=== PATIENT | female | born 1940 | race Caucasian/White ===

== ENCOUNTER 2017-05-04 13:52 | Emergency (ER) | payer MEDICARE, BC ==
[2017-05-04 14:14] VITALS: BP 120/62; PULSE 65; RESP 17; TEMP 97.1
--- NOTE | 2017-05-04 14:24 | ED ---
Wound/Laceration HPI - General Chief Complaint: Wound/Laceration Stated Complaint: foot injury Time Seen by Provider: 05/04/17 14:16 Source: patient, RN notes reviewed Mode of arrival: ambulatory Limitations: no limitations - History of Present Illness Initial Comments: 76-year-old female presents emergency Department chief complaint laceration to her right heel. She states that she was at all these 1 the door from the freezer shot causing a laceration to her right heel. Patient states that she does state blood thinners and states that it was bleeding initially and went to urgent care and advised to come here to be evaluated because she takes blood thinners. Patient states her tetanus is up-to-date. States it really appears to have stopped. She has no pain associated with. Denies any decreased range of motion. - Related Data Home Medications Medication Instructions Recorded Confirmed ALPRAZolam [Xanax] 0.25 mg PO TID PRN 03/18/15 03/18/15 Aspirin 81 mg PO DAILY 03/18/15 03/18/15 Dabigatran [Pradaxa] 150 mg PO BID 03/18/15 03/18/15 Digoxin [Lanoxin] 125 mcg PO DAILY 03/18/15 03/18/15 FLUoxetine HCL [PROzac] 60 mg PO BID 03/18/15 03/18/15 Levothyroxine Sodium [Synthroid] 150 mcg PO DAILY 03/18/15 03/18/15 Multivitamins, Thera [Theragran] 1 each PO DAILY@1200 03/18/15 03/18/15 Pravastatin Sodium [Pravachol] 20 mg PO DAILY 03/18/15 03/18/15 Temazepam [Restoril] 15 mg PO HS PRN 03/18/15 03/18/15 Topiramate 200 mg PO DAILY 03/18/15 03/18/15 Previous Rx's Medication Instructions Recorded Meclizine [Antivert] 25 mg PO TID PRN #15 tab 03/18/15 Allergies Allergy/AdvReac Type Severity Reaction Status Date / Time morphine Allergy Nausea Verified 03/18/15 05:24 Review of Systems ROS Statement: Those systems with pertinent positive or pertinent negative responses have been documented in the HPI. ROS Other: All systems not noted in ROS Statement are negative. Past Medical History Past Medical History: Atrial Fibrillation, Hypertension Additional Past Medical History / Comment(s): Mitral Regurgitation History of Any Multi-Drug Resistant Organisms: None Reported Past Surgical History: Bariatric Surgery, Hysterectomy Past Psychological History: Depression Smoking Status: Never smoker Past Alcohol Use History: None Reported Past Drug Use History: None Reported General Exam Limitations: no limitations General appearance: alert, in no apparent distress Respiratory exam: Present: normal lung sounds bilaterally. Absent: respiratory distress, wheezes, rales, rhonchi, stridor Cardiovascular Exam: Present: regular rate, normal rhythm, normal heart sounds. Absent: systolic murmur, diastolic murmur, rubs, gallop, clicks Extremities exam: Present: other (right heel there is a 2 cm superficial irregular laceration to the deep tissue /tendon involvement) Course Vital Signs 05/04/17 14:09 Temperature 97.1 F L Pulse Rate 65 Respiratory 17 Rate Blood Pressure 120/62 O2 Sat by Pulse 96 Oximetry Medical Decision Making - Medical Decision Making 76-year-old female presented for laceration. Tetanus is up-to-date patient's laceration is superficial and does not require any closure. Disposition Clinical Impression: Superficial laceration of foot Disposition: HOME SELF-CARE Condition: Stable Instructions: Laceration (ED) Additional Instructions: Please return to the Emergency Department if symptoms worsen or any other concerns. Referrals: Molly Delgadillo MD [Primary Care Provider] - 1-2 days Time of Disposition: 14:24
== END 2017-05-04 14:34 | disposition home or self-care (01) ==
LOC: EC 13:52
DX: S91.311A Laceration without foreign body, right foot, initial encounter (principal); I48.91 Unspecified atrial fibrillation; F32.9 Major depressive disorder, single episode, unspecified; Z79.01 Long term (current) use of anticoagulants; Z79.82 Long term (current) use of aspirin; Z79.899 Other long term (current) drug therapy; Z88.5 Allergy status to narcotic agent; W20.8XXA Other cause of strike by thrown, projected or falling object, initial encounter; Y92.512 Supermarket, store or market as the place of occurrence of the external cause
CPT/HCPCS: 99283

== ENCOUNTER 2018-05-20 20:45 | Inpatient (IN) | payer BC, MEDICARE ==
[2018-05-20] MEDS ORDERED: SODIUM CHLORIDE 0.9% 1,000 ML IV STA (21:32)
[2018-05-20] MEDS ORDERED: KETOROLAC 30 MG/ML 1 ML VIAL IVP STA (21:32)
[2018-05-20] MEDS ORDERED: HYDROmorphone 0.5 MG/0.5 ML SYRINGE IVP STA (21:50)
[2018-05-20] MEDS ORDERED: MAG HYDROX/AL HYDROX/SIMETH 30 ML, HYOSCYAMINE ELIXIR 10 ML, CIMETIDINE HCL 300 MG, LID... PO STA ×4 (21:51)
[2018-05-20 21:57] LABS: Basophils % (A) 1 %; Eosinophils # (A) 0.1 k/uL (0-0.7); Eosinophils % (A) 2 %; HCT 30.3 % (34.0-46.0); HGB 9.6 gm/dL (11.4-16.0); Lymphocytes # (A) 0.8 k/uL (1.0-4.8); Lymphocytes % (A) 18 %; MCHC 31.5 g/dL (31.0-37.0); MCV 82.4 fL (80.0-100.0); Mean Platelet Volume 7.2; Monocytes # (A) 0.3 k/uL (0-1.0); Monocytes % (A) 7 %; Neutrophils # (A) 2.8 k/uL (1.3-7.7); Neutrophils % (A) 69 %; Platelet Count 169 k/uL (150-450); RBC 3.68 m/uL (3.80-5.40); WBC 4.1 k/uL (3.8-10.6)
--- NOTE | 2018-05-20 22:01 | ED ---
General Adult HPI - General Source: patient, EMS, RN notes reviewed Mode of arrival: EMS Limitations: no limitations <Wilmer Schumacher - Last Filed: 05/20/18 23:37> <Darinel Venegas - Last Filed: 05/21/18 00:03> - General Chief complaint: Abdominal Pain Stated complaint: abd pain Time Seen by Provider: 05/20/18 20:53 - History of Present Illness Initial comments: 78-year-old female since to the emergency department for a chief complaint of epigastric pain 2 hours. Patient states that 3 days ago she was moving a couch and hurt her back. She states that because of this pain she took a Tylenol 3. About 30 minutes after taking the Tylenol 3 patient started to experience epigastric pain. 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 Patient also had a valve replacement 2 years ago. Patient denies any chest pain or shortness of breath. Patient was given fentanyl in the ambulance as well as Zofran. At this time patient denies any nausea. Patient has not vomited. No diarrhea. No bladder or bowel changes or saddle anesthesia. Patient has no other complaints at this time including shortness of breath, chest pain, abdominal pain, nausea or vomiting, headache, or visual changes. (Wilmer Schumacher) - Related Data Home Medications Medication Instructions Recorded Confirmed ALPRAZolam [Xanax] 0.25 mg PO TID PRN 03/18/15 05/20/18 Aspirin 81 mg PO DAILY 03/18/15 05/20/18 Dabigatran [Pradaxa] 150 mg PO BID 03/18/15 05/20/18 Digoxin [Lanoxin] 125 mcg PO DAILY 03/18/15 05/20/18 Multivitamins, Thera [Theragran] 1 each PO DAILY@1200 03/18/15 05/20/18 Pravastatin Sodium [Pravachol] 20 mg PO DAILY 03/18/15 05/20/18 Temazepam [Restoril] 15 mg PO HS PRN 03/18/15 05/20/18 Citalopram Hydrobromide 40 mg PO DAILY 05/20/18 05/20/18 [Citalopram HBr] Furosemide [Lasix] 20 mg PO DAILY 05/20/18 05/20/18 Levothyroxine Sodium [Synthroid] 175 mcg PO DAILY 05/20/18 05/20/18 Metoprolol Tartrate [Lopressor] 12.5 mg PO BID 05/20/18 05/20/18 Psyllium Husk 100% [Metamucil 6 gm PO DAILY 05/20/18 05/20/18 Packet] Topiramate 50 mg PO DAILY 05/20/18 05/20/18 Allergies Allergy/AdvReac Type Severity Reaction Status Date / Time morphine Allergy Nausea Verified 05/20/18 21:53 Review of Systems ROS Other: All systems not noted in ROS Statement are negative. <Wilmer Schumacher - Last Filed: 05/20/18 23:37> ROS Other: All systems not noted in ROS Statement are negative. <Darinel Venegas - Last Filed: 05/21/18 00:03> ROS Statement: Those systems with pertinent positive or pertinent negative responses have been documented in the HPI. Past Medical History Past Medical History: Atrial Fibrillation, CVA/TIA, Hypertension Additional Past Medical History / Comment(s): Mitral Regurgitation; previous 9 TIAs History of Any Multi-Drug Resistant Organisms: None Reported Past Surgical History: Bariatric Surgery, Hysterectomy Additional Past Surgical History / Comment(s): valve repaired Past Psychological History: Depression Smoking Status: Former smoker Past Alcohol Use History: None Reported Past Drug Use History: None Reported <Wilmer Schumacher P - Last Filed: 05/20/18 23:37> General Exam Limitations: no limitations General appearance: alert, in no apparent distress Head exam: Present: atraumatic, normocephalic, normal inspection Eye exam: Present: normal appearance. Absent: scleral icterus, conjunctival injection ENT exam: Present: normal exam, normal oropharynx, mucous membranes moist Neck exam: Present: normal inspection, full ROM. Absent: tenderness, meningismus, lymphadenopathy Respiratory exam: Present: normal lung sounds bilaterally. Absent: respiratory distress, wheezes, rales, rhonchi, stridor Cardiovascular Exam: Present: regular rate, normal rhythm, normal heart sounds. Absent: systolic murmur, diastolic murmur, rubs, gallop, clicks GI/Abdominal exam: Present: soft, tenderness (epigastric LUQ tenderness. No lower abdominal tenderness), normal bowel sounds. Absent: distended, guarding, rebound, rigid Neurological exam: Present: alert, oriented X3, CN II-XII intact Psychiatric exam: Present: normal affect, normal mood <Wilmer Schumacher - Last Filed: 05/20/18 23:37> Vital Signs 05/20/18 05/20/18 05/20/18 20:48 21:12 23:36 Temperature 98.4 F Pulse Rate 71 66 Respiratory 18 18 Rate Blood Pressure 129/62 138/74 Blood Pressure 129/62 [Left Arm Sitting] Blood Pressure 144/67 [Right Arm Sitting] O2 Sat by Pulse 100 100 Oximetry EKG Findings - EKG Comments: EKG Findings:: Normal sinus rhythm, ventricular rate 67, IN interval 134, QRS duration 90, no evidence of ST depression or elevation. <Wilmer Schumacher - Last Filed: 05/20/18 23:37> Medical Decision Making - Lab Data Result diagrams: 05/20/18 21:03 05/20/18 21:03 <Wilmer Schumacher - Last Filed: 05/20/18 23:37> - Lab Data Result diagrams: 05/20/18 21:03 05/20/18 21:03 <Darinel Venegas - Last Filed: 05/21/18 00:03> - Medical Decision Making 78 her old female since to the emergency department for a chief complaint of epigastric pain 2 hours. Pain started 30 minutes after patient took a Tylenol 3. Patient was nauseous but was given something in the ambulance that helped her nausea. Patient denies any vomiting. Patient has a history of gastric bypass 16 years ago. On exam patient does have epigastric as well as left upper quadrant tenderness. No right or left lower quadrant tenderness. Vitals WNL. Lipase elevated at 1242. CBC CMP otherwise unremarkable. Cardiac panel normal. CT showed a chronic dilated biliary tree which is not significantly different than old CT. No obstructing mass seen. Mild ectasia of the pancreatic duct without evidence of pancreatic mass. No change. Multiple hepatic and renal cysts. No sign of acute abdomen. Patient will be admitted for acute pancreatitis as she may benefit from ERCP and for pain control. ( Wilmer Schumacher) Patient was reevaluated by myself, Dr. eVnegas. Patient resting comfortably in bed. Abdomen soft with only mild tenderness in the epigastric region at this time. Patient is updated on results and plan. Case was discussed in detail with Dr. Rodriguez, who will admit for Dr. Albright. GI will be placed on consult. ( Darinel Venegas) - Lab Data Lab Results 05/20/18 05/20/18 05/20/18 Range/Units 21:03 21:03 21:03 WBC 4.1 (3.8-10.6) k/uL RBC 3.68 L (3.80-5.40) m/uL Hgb 9.6 L (11.4-16.0) gm/dL Hct 30.3 L (34.0-46.0) % MCV 82.4 (80.0-100.0) fL MCH 26.0 (25.0-35.0) pg MCHC 31.5 (31.0-37.0) g/dL RDW 15.0 (11.5-15.5) % Plt Count 169 (150-450) k/uL Neutrophils % 69 % Lymphocytes % 18 % Monocytes % 7 % Eosinophils % 2 % Basophils % 1 % Neutrophils # 2.8 (1.3-7.7) k/uL Lymphocytes # 0.8 L (1.0-4.8) k/uL Monocytes # 0.3 (0-1.0) k/uL Eosinophils # 0.1 (0-0.7) k/uL Basophils # 0.0 (0-0.2) k/uL PT (9.0-12.0) sec INR (<1.2) APTT (22.0-30.0) sec Sodium 137 (137-145) mmol/L Potassium 4.4 (3.5-5.1) mmol/L Chloride 107 (98-107) mmol/L Carbon Dioxide 24 (22-30) mmol/L Anion Gap 6 mmol/L BUN 20 H (7-17) mg/dL Creatinine 0.92 (0.52-1.04) mg/dL Est GFR (CKD-EPI)AfAm 70 (>60 ml/min/1.73 sqM) Est GFR (CKD-EPI)NonAf 61 (>60 ml/min/1.73 sqM) Glucose 92 (74-99) mg/dL Calcium 8.4 (8.4-10.2) mg/dL Magnesium 2.2 (1.6-2.3) mg/dL Total Bilirubin 0.5 (0.2-1.3) mg/dL AST 53 H (14-36) U/L ALT 31 (9-52) U/L Alkaline Phosphatase 87 (38-126) U/L Total Creatine Kinase 41 (30-135) U/L CK-MB (CK-2) 0.5 (0.0-2.4) ng/mL CK-MB (CK-2) Rel Index 1.2 Troponin I <0.012 (0.000-0.034) ng/mL NT-Pro-B Natriuret Pep pg/mL Total Protein 5.9 L (6.3-8.2) g/dL Albumin 3.4 L (3.5-5.0) g/dL Amylase 164 H (30-110) U/L Lipase 1242 H (23-300) U/L Urine Color Urine Appearance (Clear) Urine pH (5.0-8.0) Ur Specific [place] (1.001-1.035) Urine Protein (Negative) Urine Glucose (UA) (Negative) Urine Ketones (Negative) Urine Blood (Negative) Urine Nitrite (Negative) Urine Bilirubin (Negative) Urine Urobilinogen (<2.0) mg/dL Ur Leukocyte Esterase (Negative) Urine RBC (0-5) /hpf Urine WBC (0-5) /hpf Ur Squamous Epith Cells (0-4) /hpf Hyaline Casts (0-2) /lpf Urine Mucus (None) /hpf 05/20/18 05/20/18 05/20/18 Range/Units 21:03 21:03 23:13 WBC (3.8-10.6) k/uL RBC (3.80-5.40) m/uL Hgb (11.4-16.0) gm/dL Hct (34.0-46.0) % MCV (80.0-100.0) fL MCH (25.0-35.0) pg MCHC (31.0-37.0) g/dL RDW (11.5-15.5) % Plt Count (150-450) k/uL Neutrophils % % Lymphocytes % % Monocytes % % Eosinophils % % Basophils % % Neutrophils # (1.3-7.7) k/uL Lymphocytes # (1.0-4.8) k/uL Monocytes # (0-1.0) k/uL Eosinophils # (0-0.7) k/uL Basophils # (0-0.2) k/uL PT 11.2 (9.0-12.0) sec INR 1.2 H (<1.2) APTT 29.4 (22.0-30.0) sec Sodium (137-145) mmol/L Potassium (3.5-5.1) mmol/L Chloride (98-107) mmol/L Carbon Dioxide (22-30) mmol/L Anion Gap mmol/L BUN (7-17) mg/dL Creatinine (0.52-1.04) mg/dL Est GFR (CKD-EPI)AfAm (>60 ml/min/1.73 sqM) Est GFR (CKD-EPI)NonAf (>60 ml/min/1.73 sqM) Glucose (74-99) mg/dL Calcium (8.4-10.2) mg/dL Magnesium (1.6-2.3) mg/dL Total Bilirubin (0.2-1.3) mg/dL AST (14-36) U/L ALT (9-52) U/L Alkaline Phosphatase (38-126) U/L Total Creatine Kinase (30-135) U/L CK-MB (CK-2) (0.0-2.4) ng/mL CK-MB (CK-2) Rel Index Troponin I (0.000-0.034) ng/mL NT-Pro-B Natriuret Pep 1050 pg/mL Total Protein (6.3-8.2) g/dL Albumin (3.5-5.0) g/dL Amylase (30-110) U/L Lipase (23-300) U/L Urine Color Yellow Urine Appearance Clear (Clear) Urine pH 6.5 (5.0-8.0) Ur Specific [place] 1.037 H (1.001-1.035) Urine Protein Negative (Negative) Urine Glucose (UA) Negative (Negative) Urine Ketones 1+ H (Negative) Urine Blood Negative (Negative) Urine Nitrite Negative (Negative) Urine Bilirubin Negative (Negative) Urine Urobilinogen 2.0 (<2.0) mg/dL Ur Leukocyte Esterase Moderate H (Negative) Urine RBC 2 (0-5) /hpf Urine WBC 2 (0-5) /hpf Ur Squamous Epith Cells <1 (0-4) /hpf Hyaline Casts 1 (0-2) /lpf Urine Mucus Rare H (None) /hpf Disposition Time of Disposition: 23:39 <Wilmer Schumacher - Last Filed: 05/20/18 23:37> <Darinel Venegas - Last Filed: 05/21/18 00:03> Clinical Impression: Pancreatitis Disposition: ADMITTED IP TO THIS HOSP Condition: Good Referrals: Molly Delgadillo MD [Primary Care Provider] - 1-2 days
[2018-05-20 22:05] LABS: Albumin 3.4 g/dL (3.5-5.0); Calcium 8.4 mg/dL (8.4-10.2); Magnesium 2.2 mg/dL (1.6-2.3); Potassium 4.4 mmol/L (3.5-5.1); Total Bilirubin 0.5 mg/dL (0.2-1.3); Total Protein 5.9 g/dL (6.3-8.2)
[2018-05-20 22:07] LABS: INR 1.2 (<1.2); Partial Thromboplastin Time 29.4 sec (22.0-30.0); Prothrombin Time 11.2 sec (9.0-12.0)
[2018-05-20 22:20] LABS: Creatine Kinase 41 U/L (30-135)
[2018-05-20 22:32] LABS: Creatine Kinase MB 0.5 ng/mL (0.0-2.4); Troponin I <0.012 ng/mL (0.000-0.034)
--- NOTE | 2018-05-20 23:05 | CT ---
EXAMINATION TYPE: CT abdomen pelvis w con DATE OF EXAM: 05/20/2018 COMPARISON: 08/28/2017 HISTORY: Back and lower abdominal pain. CT DLP: 538.7 mGycm Automated exposure control for dose reduction was used. TECHNIQUE: Helical acquisition of images was performed from the lung bases through the pelvis. CONTRAST: Performed without Oral Contrast and with IV Contrast, patient injected with 100ml mL of Isovue 300. FINDINGS: There is subsegmental atelectasis at the lung bases. Heart is enlarged. There are numerous cysts in t he liver that measure up to 4 cm. There is dilated biliary tree. Spleen appears normal. There are cli ps apparently from bariatric surgery. There is no pancreatic mass. There is mild ectasia of the great duct that measures up to 5 mm. The common bile duct measures 12 mm. There is no adrenal mass. There is 2 cm cortical cyst posterior left kidney. There is 2 cm cortical c yst posterior lateral right kidney. There is no hydronephrosis. Ureters are not dilated. There is no retroperitoneal adenopathy. There is no evidence of a bowel obstruction. There is no ascites. Bladder distends smoothly. There is no bony destructive process. IMPRESSION: CHRONIC DILATED BILIARY TREE WHICH IS NOT SIGNIFICANTLY DIFFERENT THAN OLD CT SCAN. NO OBSTRUCTING MA SS SEEN. THIS COULD RELATE TO A STRICTURE OF THE DISTAL COMMON BILE DUCT. MILD ECTASIA OF THE PANCREA TIC DUCT WITHOUT EVIDENCE OF PANCREATIC MASS. NO CHANGE. MULTIPLE HEPATIC AND RENAL CYSTS. NO SIGN OF ACUTE ABDOMEN AND PELVIS. MILD SUBSEGMENTAL ATELECTASIS AT THE LUNG BASES WITHOUT MUCH CHANGE.
--- NOTE | 2018-05-20 23:13 | XR ---
EXAMINATION TYPE: XR chest 2V DATE OF EXAM: 05/20/2018 COMPARISON: 08/28/2017 HISTORY: Chest pain TECHNIQUE: Frontal and lateral views of the chest are obtained. FINDINGS: There is no heart failure nor confluent pneumonic infiltrate. Costophrenic angles are marcin r. There are chest leads. There are sternal wires. Bony thorax appears intact. IMPRESSION: No active cardiopulmonary disease. No change.
[2018-05-20 23:25] LABS: Appearance,Urine Clear (Clear); Bilirubin,Urine Negative (Negative); Blood,Urine Negative (Negative); Color,Urine Yellow; Glucose,Urine (UA) Negative (Negative); Hyaline Casts,Urine 1 /lpf (0-2); Ketones,Urine 1+ (Negative); Leukocyte Esterase,Urine Moderate (Negative); Mucus,Urine Rare /hpf; Nitrite,Urine Negative (Negative); PH, Urine 6.5 (5.0-8.0); Protein,Urine Negative (Negative); RBC,Urine 2 /hpf (0-5); Specific Gravity,Urine 1.037 (1.001-1.035); Squamous Epithelial Cell,Urine <1 /hpf (0-4); WBC,Urine 2 /hpf (0-5)
[2018-05-21] MEDS ORDERED: ONDANSETRON 4 MG/2 ML VIAL IVP PRN (00:08)
[2018-05-21] MEDS ORDERED: NALOXONE 0.4 MG/ML 1 ML VIAL IV PRN (00:08)
[2018-05-21] MEDS ORDERED: ALPRAZolam 0.25 MG TAB PO PRN (00:12)
[2018-05-21] MEDS ORDERED: TEMAZEPAM 15 MG CAP PO PRN (00:12)
[2018-05-21] MEDS: SODIUM CHLORIDE 0.9% 1,000 ML IV SCH ×3 (01:06→21:41)
[2018-05-21 01:24] VITALS: BMI 25.3
--- NOTE | 2018-05-21 04:19 | HP ---
HISTORY AND PHYSICAL DOS 05/20/2018 CHIEF COMPLAINT: Abdominal pain. HISTORY OF PRESENT ILLNESS: This 78-year-old woman with a past medical history of multiple medical problems including atrial fibrillation, CVA/TIA, hypertension, mitral regurgitation, bariatric surgery being followed by Dr. Delgadillo in the outpatient setting, was complaining of epigastric pain today. The patient is severe and about a few days ago the patient was moving a couch and was complaining of some back pain. Because of lack of improvement, the patient came to [facility] and admitted for further evaluation and treatment. Amylase and lipase was elevated and the patient also had abdominal pelvis CAT scan which showed evidence of chronic dilated biliary tree with no significant difference and no obstruction was seen. 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 There is no history of fever, rigors. No history of headache, loss of consciousness or seizures. The hemoglobin 9.6 and the liver enzymes AST was 53. Otherwise, amylase 164 and lipase is 1242. PAST MEDICAL HISTORY: History of atrial fibrillation, CVA/TIA, hypertension, mitral regurgitation. MEDICATIONS PRIOR TO ADMISSION: Include home medications are: 1. Metamucil 6 g p.o. daily. 2. Lasix 20 mg p.o. daily. 3. Celexa 40 mg p.o. daily. 4. Topamax 50 mg p.o. daily. 5. Lopressor 12.5 mg b.i.d. 6. Restoril 15 mg q.h.s. p.r.n. 7. Pravachol 20 mg b.i.d. 8. Multivitamins 1 p.o. daily. 9. Synthroid 125 mcg p.o. daily. 10.Lanoxin 125 mcg p.o. daily. 11.Pradaxa 150 mg p.o. b.i.d. 12.Aspirin 81 mg p.o. daily. 13.Xanax 0.25 t.i.d. p.r.n. ALLERGIES: ARE MORPHINE. FAMILY HISTORY: No history of heart disease or strokes in family. SOCIAL HISTORY: Previous history of smoking. No history of current smoking or alcohol intake. REVIEW OF SYSTEMS: ENT: No diminished vision. No diminished hearing. CARDIOVASCULAR: No angina or palpitations. RESPIRATIONS: No cough or hemoptysis. GI mentioned earlier. : No dysuria. NERVOUS SYSTEM: No numbness or weakness. ALLERGY/IMMUNOLOGY: No asthma or hayfever. MUSCULOSKELETAL as mentioned earlier. HEMATOLOGY/ONCOLOGY: No history of anemia. ENDOCRINE: As mentioned earlier. CONSTITUTIONAL: As mentioned earlier. DERMATOLOGY: Negative. RHEUMATOLOGY: Negative. PSYCHIATRY: As mentioned earlier. PHYSICAL EXAMINATION: GENERAL: The patient is alert and oriented times three. VITAL SIGNS: Pulse is 66, blood pressure 129/62, respiration 18, temperature 98.4. Pulse ox 100% on room air. HEENT: Conjunctivae normal. Oral mucosa moist. NECK is no jugular venous distention. No carotid bruit. No lymph node enlargement. CARDIOVASCULAR S1, S2 muffled. RESPIRATIONS: Breath sounds diminished in the bases. No rhonchi. No crackles. ABDOMEN: Soft. Mild diffuse tenderness in the epigastrium. No guarding. No rigidity. No mass palpable. LEGS no edema. No swelling. CENTRAL NERVOUS SYSTEM: Higher functions as mentioned earlier. Moves all 4 limbs. No focal motor or sensory deficits. LYMPHATICS: No lymph nodes palpable in the neck, axillae or groin. SKIN: No ulcer, rash or bleeding. LAB STUDIES: WBC 4.1, hemoglobin 9.6. INR 1.2. Other labs are noted. ASSESSMENT: 1. Abdominal pain with acute pancreatitis. 2. History of recent back pain. 3. Increased AST. 4. Anemia, normocytic anemia of chronic disease. 5. History of atrial fibrillation. 6. History of cerebrovascular accident/transient ischemic attack. 7. History of hypertension. 8. History of mitral regurgitation. 9. History of bariatric surgery. 10.History of anxiety, depression. 11.Remote history of nicotine dependence. RECOMMENDATIONS AND DISCUSSION: In this 78-year-old woman who presented with multiple complex medical issues, we will monitor the patient closely. Continue the current medications. Proton pump inhibitors. I would recommend gastroenterology consultation. Keep the patient n.p.o. Resume the home medications. Guarded prognosis because of the multiple complex medical issues. Further recommendations to follow. See orders for further details. A copy of dictation is being forwarded to Dr. Delgadillo who is the primary physician. MMODL / IJN: [id number] / MTDD
[2018-05-21] MEDS: LEVOTHYROXINE 75 MCG TAB PO SCH (06:41)
[2018-05-21] MEDS: LEVOTHYROXINE 100 MCG TAB PO SCH (06:41)
[2018-05-21] MEDS: HYDROmorphone 1 MG/ML 1 ML SYRINGE IVP PRN ×3 (07:35→15:57)
[2018-05-21] MEDS: PANTOPRAZOLE 40 MG/10 ML VIAL IVP SCH ×2 (07:44→21:41)
[2018-05-21] MEDS: DABIGATRAN 150 MG CAP PO SCH ×2 (07:44→21:39)
[2018-05-21] MEDS: CITALOPRAM HYDROBROMIDE 20 MG TAB PO SCH (07:45)
[2018-05-21] MEDS: FUROSEMIDE 20 MG TAB PO SCH (07:45)
[2018-05-21] MEDS: TOPIRAMATE 25 MG TAB PO SCH (07:45)
[2018-05-21] MEDS: METOPROLOL TARTRATE 12.5 MG TAB PO SCH ×3 (07:45→21:39)
[2018-05-21] MEDS: DIGOXIN 125 MCG TAB PO SCH ×2 (07:46→07:53)
[2018-05-21] MEDS: PRAVASTATIN SODIUM 20 MG TAB PO SCH (07:46)
[2018-05-21 07:51] VITALS: RESP 16
--- NOTE | 2018-05-21 08:33 | P.CONS ---
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 Patient presents with acute lower back pain followed by mid abdominal epigastric pain yesterday. Denies fever chills acholic stools or change in the color and urine. Admission white count 4.1. INR 1.2. Hemoglobin 9.6. INR 1.2. BUN 20 creatinine 0.9. LFTs within normal limits; except AST 53. Lipase 1242. Amylase 164. Current lipase 189. Amylase 99. LFTs within normal limits; AST mildly elevated 39. She thinks she had a previous attack of pancreatitis E year ago but did not require hospitalization. No changes in medications. No present or remote history of alcohol usage. Triglycerides 46. CT abdomen and pelvis chronically dilated biliary tree not significantly different than old CT. No obstructing masses. This could relate to a stricture of the common bile duct. Mild ectasia the pancreatic duct without evidence of pancreatic mass. No ascites. Review of Systems Constitutional: Denies fever, chills, sweats, weight gain, or loss. HEENT: Negative for migraines, blurred vision or loss, earaches, drainage, tinnitus, oral mucosal lesions, dysphagia, or odynophagia. CARDIAC: Negative for chest pain, arrhythmias, or palpitation. RESPIRATORY: Negative for shortness of breath, hemoptysis, cough, or sputum production. GI: See HPI for pertinent findings. : Negative for hematuria, urgency, frequency, polyuria, or dysuria. GYNc: Denies possibility of . Negative vaginal discharge. MUSCULOSKELETAL: Negative for muscle aches, swelling, arthritis, and arthralgias. NEUROLOGIC: Negative for stroke or TIA. ENDOCRINE: Negative for thyroid problems. SKIN: Negative for rash or itching. Psychiatric : History of depression. Past Medical History Past Medical History: Atrial Fibrillation, CVA/TIA, Hypertension Additional Past Medical History / Comment(s): Mitral Regurgitation; previous 9 TIAs History of Any Multi-Drug Resistant Organisms: None Reported Past Surgical History: Bariatric Surgery, Hysterectomy Additional Past Surgical History / Comment(s): valve repaired Past Psychological History: Depression Smoking Status: Former smoker Past Alcohol Use History: None Reported Past Drug Use History: None Reported Medications and Allergies Home Medications Medication Instructions Recorded Confirmed Type ALPRAZolam [Xanax] 0.25 mg PO TID PRN 03/18/15 05/20/18 History Aspirin 81 mg PO DAILY 03/18/15 05/20/18 History Dabigatran [Pradaxa] 150 mg PO BID 03/18/15 05/20/18 History Digoxin [Lanoxin] 125 mcg PO DAILY 03/18/15 05/20/18 History Multivitamins, Thera [Theragran] 1 each PO DAILY@1200 03/18/15 05/20/18 History Pravastatin Sodium [Pravachol] 20 mg PO DAILY 03/18/15 05/20/18 History Temazepam [Restoril] 15 mg PO HS PRN 03/18/15 05/20/18 History Citalopram Hydrobromide 40 mg PO DAILY 05/20/18 05/20/18 History [Citalopram HBr] Furosemide [Lasix] 20 mg PO DAILY 05/20/18 05/20/18 History Levothyroxine Sodium [Synthroid] 175 mcg PO DAILY 05/20/18 05/20/18 History Metoprolol Tartrate [Lopressor] 12.5 mg PO BID 05/20/18 05/20/18 History Psyllium Husk 100% [Metamucil 6 gm PO DAILY 05/20/18 05/20/18 History Packet] Topiramate 50 mg PO DAILY 05/20/18 05/20/18 History Allergies Allergy/AdvReac Type Severity Reaction Status Date / Time morphine Allergy Nausea Verified 05/20/18 21:53 Physical Exam Vitals: Vital Signs Temp Pulse Pulse Resp BP BP BP 05/21/18 07:51 53 L 16 05/21/18 07:00 97.6 F 52 L 18 05/21/18 02:17 97.0 F L 58 L 18 05/21/18 01:07 97.5 F L 65 18 128/60 05/20/18 23:36 66 18 138/74 05/20/18 21:12 129/62 144/67 05/20/18 20:48 98.4 F 71 18 129/62 BP Pulse Ox 05/21/18 07:51 101/52 98 05/21/18 07:00 96/59 98 05/21/18 02:17 115/64 97 05/21/18 01:07 98 05/20/18 23:36 100 05/20/18 21:12 05/20/18 20:48 100 Intake and Output 05/20/18 05/21/18 05/21/18 22:59 06:59 14:59 Intake Total 0 Balance 0 Intake: Oral 0 Other: Voiding Method Toilet Toilet # Voids 0 Weight 67.132 kg 69.5 kg General appearance: The patient is alert, oriented, in no acute distress. HET: Head is normocephalic and atraumatic. Pupils are equal and reactive. Oropharynx is clear without lesions. Neck: Supple without lymphadenopathy. Trachea midline. Heart: S1 S2. Regular rate and rhythm. Lungs: No crackles or wheezes are heard. Abdomen: Soft, mild midepigastric tenderness, nondistended with bowel sounds. No peritoneal signs. No palpable organomegaly or masses. Extremities: Normal skin color and turgor. No cyanosis, rash, ulceration, clubbing, or edema. Radial and pedal pulses are 2/4 bilaterally. Neurological: No focal deficits. Strength and sensation are grossly intact. Results CBC & Chem 7: 05/20/18 21:03 05/21/18 08:17 Labs: Abnormal Lab Results - Last 24 Hours (Table) 05/20/18 05/20/18 05/20/18 Range/Units 21:03 21:03 21:03 RBC 3.68 L (3.80-5.40) m/uL Hgb 9.6 L (11.4-16.0) gm/dL Hct 30.3 L (34.0-46.0) % Lymphocytes # 0.8 L (1.0-4.8) k/uL INR 1.2 H (<1.2) BUN 20 H (7-17) mg/dL AST 53 H (14-36) U/L Total Protein 5.9 L (6.3-8.2) g/dL Albumin 3.4 L (3.5-5.0) g/dL Amylase 164 H (30-110) U/L Lipase 1242 H (23-300) U/L Ur Specific [place] (1.001-1.035) Urine Ketones (Negative) Ur Leukocyte Esterase (Negative) Urine Mucus (None) /hpf 05/20/18 Range/Units 23:13 RBC (3.80-5.40) m/uL Hgb (11.4-16.0) gm/dL Hct (34.0-46.0) % Lymphocytes # (1.0-4.8) k/uL INR (<1.2) BUN (7-17) mg/dL AST (14-36) U/L Total Protein (6.3-8.2) g/dL Albumin (3.5-5.0) g/dL Amylase (30-110) U/L Lipase (23-300) U/L Ur Specific [place] 1.037 H (1.001-1.035) Urine Ketones 1+ H (Negative) Ur Leukocyte Esterase Moderate H (Negative) Urine Mucus Rare H (None) /hpf CT scan - abdomen: report reviewed (Dr. Mai) Assessment and Plan (1) Pancreatitis Narrative/Plan: CT report chronic dilatation of biliary tree with unremarkable LFTs. Etiology of pancreatitis is unclear possible stricture disease possible autoimmune. Current Visit: Yes Status: Acute Code(s): K85.90 - ACUTE PANCREATITIS WITHOUT NECROSIS OR INFECTION, UNSP SNOMED Code(s): 77553428 (2) History of Jaimee-en-Y gastric bypass Current Visit: Yes Status: Acute Code(s): Z98.84 - BARIATRIC SURGERY STATUS SNOMED Code(s): 455404537 (3) H/O cholelithiasis Current Visit: Yes Status: Acute Code(s): Z87.19 - PERSONAL HISTORY OF OTHER DISEASES OF THE DIGESTIVE SYSTEM SNOMED Code(s): 553020972 (4) Hx of cholecystectomy Current Visit: Yes Status: Acute Code(s): Z90.49 - ACQUIRED ABSENCE OF OTHER SPECIFIED PARTS OF DIGESTIVE TRACT SNOMED Code(s): 869017939 (5) Atrial fibrillation Current Visit: Yes Status: Acute Code(s): I48.91 - UNSPECIFIED ATRIAL FIBRILLATION SNOMED Code(s): 97822532 (6) H/O: CVA (cerebrovascular accident) Current Visit: Yes Status: Acute Code(s): Z86.73 - PRSNL HX OF TIA (TIA), AND CEREB INFRC W/O RESID DEFICITS SNOMED Code(s): 359507987 Plan: 1. Clear liquids advance to full liquid for dinner if tolerated. Continue with anticoagulation. 2. SHAYNE, subclass 1-4 IgG, CA 19-9 requested. 3. Outpatient EUS discussed and recommended. 4. Will follow closely with you. Thank you for this kind referral and the opportunity to participate in the care of your patient. This consultation was discussed with Dr. Mai. The impression and plan of care have been directed as dictated.
[2018-05-21] MEDS ORDERED: ASPIRIN 81 MG PO SCH (09:00)
[2018-05-21 09:01] LABS: Calcium 8.2 mg/dL (8.4-10.2); Potassium 4.2 mmol/L (3.5-5.1); Total Bilirubin 0.4 mg/dL (0.2-1.3); Total Protein 5.2 g/dL (6.3-8.2)
--- NOTE | 2018-05-21 14:41 | PN ---
PROGRESS NOTE DATE OF SERVICE: 05/21/2018 This is a 78-year-old woman who was admitted with abdominal pain with acute pancreatitis, is improving significantly. No chest pain. No palpitations. No fever. Gastroenterology is following the patient closely. I would recommend outpatient endoscopic ultrasound. PHYSICAL EXAM: Alert and oriented x3. Pulse 53, blood pressure 101/52, respirations 16, temperature 97.6, pulse ox 98% on room air: HEENT: Conjunctivae normal. NECK: No jugular venous distention. CARDIOVASCULAR SYSTEM: S1, S2, muffled. RESPIRATORY: Breath sounds diminished at the bases, no rhonchi, no crackles. ABDOMEN: Soft, minimal discomfort in the epigastrium. No mass palpable. LEGS: No edema, no swelling. NERVOUS SYSTEM: No focal deficits. LABS: Hemoglobin 9.6. ASSESSMENT: 1. Abdominal pain for acute pancreatitis. 2. History of recent back pain. 3. Increased AST. 4. Anemia, normocytic anemia of chronic disease. 5. History atrial fibrillation. 6. History of cerebrovascular accident, transient ischemic attack. 7. Hypertension. 8. History of mitral regurgitation. 9. History of bariatric surgery. 10.History of anxiety and depression. 11.Remote history of nicotine dependence. RECOMMENDATION: Recommend to continue current medications, continue with the monitoring and symptomatic treatment. Otherwise, as this time I would recommend advance diet. Repeat labs in the morning and possible discharge if the patient continues to improve. Prognosis guarded. Further recommendations to follow. MMODL / IJN: [id number] /
[2018-05-21 17:36] LABS: Cancer Antigen 19-9 8.8 U/mL (0.0-34.9)
[2018-05-21] MEDS ORDERED: SENNOSIDES-DOCUSATE SODIUM 1 EACH TAB PO SCH (21:00)
[2018-05-22] MEDS: HYDROmorphone 1 MG/ML 1 ML SYRINGE IVP PRN (03:30)
[2018-05-22] MEDS: LEVOTHYROXINE 100 MCG TAB PO SCH (05:41)
[2018-05-22] MEDS: LEVOTHYROXINE 75 MCG TAB PO SCH (05:41)
[2018-05-22] MEDS: SODIUM CHLORIDE 0.9% 1,000 ML IV SCH ×2 (05:41→11:31)
[2018-05-22 05:55] VITALS: BP 105/52; PULSE 64; TEMP 97.9
[2018-05-22] MEDS ORDERED: ACETAMINOPHEN TAB 325 MG TAB PO PRN (06:49)
[2018-05-22] MEDS: PRAVASTATIN SODIUM 20 MG TAB PO SCH (08:10)
[2018-05-22] MEDS: FUROSEMIDE 20 MG TAB PO SCH (08:11)
[2018-05-22] MEDS: CITALOPRAM HYDROBROMIDE 20 MG TAB PO SCH (08:11)
[2018-05-22] MEDS: METOPROLOL TARTRATE 12.5 MG TAB PO SCH (08:11)
[2018-05-22] MEDS: TOPIRAMATE 25 MG TAB PO SCH (08:11)
[2018-05-22] MEDS: DIGOXIN 125 MCG TAB PO SCH (08:12)
[2018-05-22] MEDS: PANTOPRAZOLE 40 MG/10 ML VIAL IVP SCH (08:12)
[2018-05-22] MEDS: DABIGATRAN 150 MG CAP PO SCH (08:12)
[2018-05-22 09:45] LABS: Basophils % (A) 0 %; Eosinophils # (A) 0.1 k/uL (0-0.7); Eosinophils % (A) 5 %; HCT 27.7 % (34.0-46.0); HGB 8.9 gm/dL (11.4-16.0); Hypochromasia Slight; Lymphocytes # (A) 0.6 k/uL (1.0-4.8); Lymphocytes % (A) 25 %; MCH 27.3 pg (25.0-35.0); MCHC 32.1 g/dL (31.0-37.0); Mean Platelet Volume 7.2; Monocytes # (A) 0.2 k/uL (0-1.0); Monocytes % (A) 6 %; Neutrophils # (A) 1.5 k/uL (1.3-7.7); Neutrophils % (A) 61 %; Platelet Count 130 k/uL (150-450); RBC 3.26 m/uL (3.80-5.40); RDW 14.8 % (11.5-15.5); WBC 2.5 k/uL (3.8-10.6)
[2018-05-22 09:55] LABS: ALT 34 U/L (9-52); AST 27 U/L (14-36); Albumin 2.7 g/dL (3.5-5.0); Alkaline Phosphatase 73 U/L (38-126); Amylase 72 U/L (30-110); Anion Gap 6 mmol/L; Blood Urea Nitrogen 13 mg/dL (7-17); Calcium 8.1 mg/dL (8.4-10.2); Carbon Dioxide 22 mmol/L (22-30); Chloride 109 mmol/L (98-107); Glucose 62 mg/dL (74-99); Lipase 131 U/L (23-300); Magnesium 1.9 mg/dL (1.6-2.3); Sodium 137 mmol/L (137-145); Total Bilirubin 0.3 mg/dL (0.2-1.3)
--- NOTE | 2018-05-22 11:08 | P.PN ---
Subjective Progress Note Date: 05/22/18 Principal diagnosis: Pancreatitis Admitted with acute pancreatitis etiology unclear history of Jaimee-en-Y gastric bypass. Liver function test resolved. SHAYNE negative. IgG serology pending. Transaminases unremarkable. Feels better. Afebrile. CA-19-9 within normal limits. Objective - Vital Signs Vital signs: Vital Signs Temp 97.9 F 05/22/18 05:45 Pulse 64 05/22/18 05:45 Resp 16 05/22/18 05:45 BP 105/52 05/22/18 05:45 Pulse Ox 96 05/22/18 05:45 Intake & Output 05/21/18 05/22/18 05/22/18 18:59 06:59 18:59 Intake Total 700 Balance 700 Weight 69.5 kg Intake: Intake, IV Titration 700 Amount Sodium Chloride 0.9% 1, 700 000 ml @ 100 mls/hr IV . Q10H NAHOMY Rx#:[id number] Other: Voiding Method Toilet Toilet Toilet # Voids 3 1 - Exam General appearance: The patient is alert, oriented, in no acute distress. HET: Head is normocephalic and atraumatic. Pupils are equal and reactive. Oropharynx is clear without lesions. Neck: Supple without lymphadenopathy. Trachea midline. Heart: S1 S2. Regular rate and rhythm. Lungs: No crackles or wheezes are heard. Abdomen: Soft, nontender, nondistended with bowel sounds. No peritoneal signs. No palpable organomegaly or masses. Extremities: Normal skin color and turgor. No cyanosis, rash, ulceration, clubbing, or edema. Radial and pedal pulses are 2/4 bilaterally. Neurological: No focal deficits. Strength and sensation are grossly intact. - Labs CBC & Chem 7: 05/22/18 08:48 05/22/18 08:48 Labs: Abnormal Lab Results - Last 24 Hours (Table) 05/22/18 05/22/18 Range/Units 08:48 08:48 WBC 2.5 L (3.8-10.6) k/uL RBC 3.26 L (3.80-5.40) m/uL Hgb 8.9 L (11.4-16.0) gm/dL Hct 27.7 L (34.0-46.0) % Plt Count 130 L (150-450) k/uL Lymphocytes # 0.6 L (1.0-4.8) k/uL Chloride 109 H (98-107) mmol/L Glucose 62 L (74-99) mg/dL Calcium 8.1 L (8.4-10.2) mg/dL Total Protein 5.0 L (6.3-8.2) g/dL Albumin 2.7 L (3.5-5.0) g/dL Microbiology - Last 24 Hours (Table) 05/20/18 23:13 Urine Culture - Preliminary Urine,Voided Assessment and Plan (1) Pancreatitis Narrative/Plan: CT report chronic dilatation of biliary tree with unremarkable LFTs. Etiology of pancreatitis is unclear possible stricture disease possible autoimmune. Current Visit: Yes Status: Acute Code(s): K85.90 - ACUTE PANCREATITIS WITHOUT NECROSIS OR INFECTION, UNSP SNOMED Code(s): 45582531 (2) History of Jaimee-en-Y gastric bypass Current Visit: Yes Status: Acute Code(s): Z98.84 - BARIATRIC SURGERY STATUS SNOMED Code(s): 743511973 (3) H/O cholelithiasis Current Visit: Yes Status: Acute Code(s): Z87.19 - PERSONAL HISTORY OF OTHER DISEASES OF THE DIGESTIVE SYSTEM SNOMED Code(s): 098194277 (4) Hx of cholecystectomy Current Visit: Yes Status: Acute Code(s): Z90.49 - ACQUIRED ABSENCE OF OTHER SPECIFIED PARTS OF DIGESTIVE TRACT SNOMED Code(s): 527515908 (5) Atrial fibrillation Current Visit: Yes Status: Acute Code(s): I48.91 - UNSPECIFIED ATRIAL FIBRILLATION SNOMED Code(s): 75246888 (6) H/O: CVA (cerebrovascular accident) Current Visit: Yes Status: Acute Code(s): Z86.73 - PRSNL HX OF TIA (TIA), AND CEREB INFRC W/O RESID DEFICITS SNOMED Code(s): 559766891 Plan: 1. Low-fat diet. Discharge per medicine. Continue with anticoagulation. 2. Outpatient EUS discussed and recommended. GI office will schedule. Return to office in 2-4 weeks for reevaluation. Assessment and plan a care discussed with Dr. Mai
--- NOTE | 2018-05-22 19:22 | P.DS ---
Providers Date of admission: 05/21/18 00:03 Expected date of discharge: 05/22/18 Attending physician: Keyanna Miranda Consults: Dr. Nadia Mai Primary care physician: Molly [facility] Course: Final Diagnoses: Acute pancreatitis, etiology unclear History of Jaimee-en-Y gastric bypass Recent back pain Anemia, normocytic, of chronic disease Hypertension Hospital course: This is a 78-year-old female admitted with acute pancreatitis, in a patient with history of Jaimee-en-Y gastric bypass and multiple other medical issues. CT reported chronic dilatation of biliary tree with no significant difference and no obstruction. Initial bowel rest.Evaluated by GI. IgG serology pending, SHAYNE negative, CA 19-9 within normal limits. LFT elevation , amylase and lipase normalized. Afebrile. Significant clinical improvement. Patient has been cleared for discharge by GI. Outpatient EUS being arranged by GI office. Patient is being discharged home in a stable condition with guarded prognosis. Microbiology 05/20/18 23:13 Urine,Voided Urine Culture - Final Exam: Gen.: no acute distress, alert and oriented 3. CV: Regular S1 and S2. LUNGS: Essentially clear, bilateral bases diminished, no rhonchi, no crackles, no wheezes. ABD: Soft, nondistended, nontender, positive bowel sounds. NEURO: No focal deficits. The impression and plan of care has been dictated as directed. : I performed a history and examination of this patient, discussed the same with the dictator. I agree with the dictator's note ,documented as a scribe. Any additional findings or plans will be noted. Time taken: 35 minutes Patient Condition at Discharge: Stable Plan - Discharge Summary Discharge Rx Participant: Yes New Discharge Prescriptions: Continue Temazepam [Restoril] 15 mg PO HS PRN PRN Reason: Insomnia Pravastatin Sodium [Pravachol] 20 mg PO DAILY Multivitamins, Thera [Multivitamin (formulary)] 1 each PO DAILY@1200 Digoxin [Lanoxin] 125 mcg PO DAILY Dabigatran [Pradaxa] 150 mg PO BID Aspirin 81 mg PO DAILY ALPRAZolam [Xanax] 0.25 mg PO TID PRN PRN Reason: Anxiety Citalopram Hydrobromide [Citalopram HBr] 40 mg PO DAILY Furosemide [Lasix] 20 mg PO DAILY Levothyroxine Sodium [Synthroid] 175 mcg PO DAILY Metoprolol Tartrate [Lopressor] 12.5 mg PO BID Psyllium Husk 100% [Metamucil Packet] 6 gm PO DAILY Topiramate 50 mg PO DAILY Discharge Medication List ALPRAZolam [Xanax] 0.25 mg PO TID PRN 03/18/15 [History] Aspirin 81 mg PO DAILY 03/18/15 [History] Dabigatran [Pradaxa] 150 mg PO BID 03/18/15 [History] Digoxin [Lanoxin] 125 mcg PO DAILY 03/18/15 [History] Multivitamins, Thera [Multivitamin (formulary)] 1 each PO DAILY@1200 03/18/15 [ History] Pravastatin Sodium [Pravachol] 20 mg PO DAILY 03/18/15 [History] Temazepam [Restoril] 15 mg PO HS PRN 03/18/15 [History] Citalopram Hydrobromide [Citalopram HBr] 40 mg PO DAILY 05/20/18 [History] Furosemide [Lasix] 20 mg PO DAILY 05/20/18 [History] Levothyroxine Sodium [Synthroid] 175 mcg PO DAILY 05/20/18 [History] Metoprolol Tartrate [Lopressor] 12.5 mg PO BID 05/20/18 [History] Psyllium Husk 100% [Metamucil Packet] 6 gm PO DAILY 05/20/18 [History] Topiramate 50 mg PO DAILY 05/20/18 [History] Follow up Appointment(s)/Referral(s): Molly Delgadillo MD [Primary Care Provider] - 3 Days (Office unavailable at this time. Please call for appointment. ) Nadia Mai MD [STAFF PHYSICIAN] - 07/08/18 3:30 pm Ambulatory/Diagnostic Orders: Comprehensive Metabolic Panel [LAB.AMB] Time Frame: 3 Days, Location: None Selected Patient Instructions/Handouts: Pancreatitis (DC) Activity/Diet/Wound Care/Special Instructions: Outpatient endoscopic US being scheduled by GI OFFICE Diet low-fat Activity: Limited until follow up Final urine culture results to PCP Discharge Disposition: HOME SELF-CARE
== END 2018-05-22 12:01 | disposition home or self-care (01) | DRG 440 ==
LOC: EC 20:45 → 4MS4W 05-21 00:03
PROVIDERS: ADMIT Hospitalist; ATTEND Hospitalist
DX: K85.90 Acute pancreatitis without necrosis or infection, unspecified (principal); F32.9 Major depressive disorder, single episode, unspecified; I10 Essential (primary) hypertension; I48.91 Unspecified atrial fibrillation; D63.8 Anemia in other chronic diseases classified elsewhere; F41.9 Anxiety disorder, unspecified; I34.0 Nonrheumatic mitral (valve) insufficiency; N28.1 Cyst of kidney, acquired; Z98.84 Bariatric surgery status; Z86.73 Personal history of transient ischemic attack (TIA), and cerebral infarction without residual deficits; Z90.710 Acquired absence of both cervix and uterus; Z87.891 Personal history of nicotine dependence; Z79.82 Long term (current) use of aspirin; Z79.02 Long term (current) use of antithrombotics/antiplatelets; Z79.899 Other long term (current) drug therapy; Z88.5 Allergy status to narcotic agent; Z90.49 Acquired absence of other specified parts of digestive tract; Z95.2 Presence of prosthetic heart valve
CPT/HCPCS: 36415; 71046; 74177; 80053; 81001; 82150; 82550; 82553; 82787; 83690; 83735; 83880; 84478; 84484; 85025; 85610; 85730; 86038; 86301; 87086; 93005; 96361; 96374; 99285

== ENCOUNTER 2018-06-17 17:09 | Observation (INO) | payer MEDICARE ==
[2018-06-17] MEDS ORDERED: fentaNYL (PF) 50 MCG/ML 2 ML AMP IV STA (18:51)
[2018-06-17] MEDS ORDERED: SODIUM CHLORIDE 0.9% 1,000 ML IV ONE (18:52)
[2018-06-17] MEDS ORDERED: ONDANSETRON 4 MG/2 ML VIAL IVP STA ×2 (18:52→20:52)
--- NOTE | 2018-06-17 18:55 | ED ---
Abdominal Pain HPI - General Chief Complaint: Abdominal Pain Stated Complaint: Lower back pain, abd pain Time Seen by Provider: 06/17/18 18:26 Source: patient Mode of arrival: ambulatory Limitations: no limitations - History of Present Illness Initial Comments: 38-year-old female presenting with back pain abdominal pain. Patient states it started 2 days ago as a dull ache in her left lumbar spine radiating around to the lower quadrants of her abdomen. States it was constant, worsened with movement, at times radiates down her left leg, and has been accompanied by nausea without vomiting. She states it has been progressively getting worse. Denies any inciting event. He denies any chest pain or shortness of breath. She has extensive history of pancreatitis of unknown etiology. She also has a history of a gastric bypass. Patient states she is passing gas but has been more constipated over the past week. She denies any saddle anesthesia. Patient states she tried Tylenol without relief. Eyes any urinary symptoms or urinary retention. - Related Data Home Medications Medication Instructions Recorded Confirmed ALPRAZolam [Xanax] 0.25 mg PO TID PRN 03/18/15 05/20/18 Aspirin 81 mg PO DAILY 03/18/15 05/20/18 Dabigatran [Pradaxa] 150 mg PO BID 03/18/15 05/20/18 Digoxin [Lanoxin] 125 mcg PO DAILY 03/18/15 05/20/18 Multivitamins, Thera [Multivitamin 1 each PO DAILY@1200 03/18/15 05/20/18 (formulary)] Pravastatin Sodium [Pravachol] 20 mg PO DAILY 03/18/15 05/20/18 Temazepam [Restoril] 15 mg PO HS PRN 03/18/15 05/20/18 Citalopram Hydrobromide 40 mg PO DAILY 05/20/18 05/20/18 [Citalopram HBr] Furosemide [Lasix] 20 mg PO DAILY 05/20/18 05/20/18 Levothyroxine Sodium [Synthroid] 175 mcg PO DAILY 05/20/18 05/20/18 Metoprolol Tartrate [Lopressor] 12.5 mg PO BID 05/20/18 05/20/18 Psyllium Husk 100% [Metamucil 6 gm PO DAILY 05/20/18 05/20/18 Packet] Topiramate 50 mg PO DAILY 05/20/18 05/20/18 Allergies Allergy/AdvReac Type Severity Reaction Status Date / Time morphine Allergy Nausea Verified 06/17/18 17:18 Review of Systems ROS Statement: Those systems with pertinent positive or pertinent negative responses have been documented in the HPI. Review of Systems Constitutional: Denies fever, chills Eyes: Denies change in vision, Denies pain Ears, nose, mouth, throat: Denies headaches, Denies sore throat Cardiovascular: Denies chest pain. Denies palpitations Respiratory: Denies shortness of breath, Denies cough Gastrointestinal: Positive abdominal pain. Positive nausea, negative vomiting, diarrhea. Genitourinary: Denies hematuria, Denies infections Musculoskeletal: Positive back pain, Denies swelling Integumentary: Denies rash Neurological: Denies headache, focal weakness, focal numbness Psychiatric: Denies anxiety, Denies depression Hematologic/Lymphatic: Denies easy bleeding or bruising ROS Other: All systems not noted in ROS Statement are negative. Past Medical History Past Medical History: Atrial Fibrillation, CVA/TIA, Hypertension Additional Past Medical History / Comment(s): Mitral Regurgitation; previous 9 TIAs History of Any Multi-Drug Resistant Organisms: None Reported Past Surgical History: Bariatric Surgery, Hysterectomy Additional Past Surgical History / Comment(s): valve repaired Past Psychological History: Depression Smoking Status: Former smoker Past Alcohol Use History: None Reported Past Drug Use History: None Reported General Exam - General Exam Comments Initial Comments: General: Awake, alert. Tearful HENT: Normocephalic. Atraumatic Eyes: PERRL. EOMI. No scleral icterus. No injected conjunctiva Neck: Full ROM Chest/Lungs: Clear to auscultation bilaterally. No wheezing, rhonchi, or rales Cardiac: Regular rate, rhythm. No murmurs or rubs. No abdominal bruit Abdomen/GI: [Soft, diffusely tender, nondistended. No rebound, guarding, or rigidity. Musculoskeletal: Full ROM. Left lumbar paraspinal tenderness. No midline cervical, thoracic, lumbar tenderness. Skin: Warm, dry, intact Neurologic: A/Ox3, no weakness, no sensory deficit, no abdnormal gait, no coordination deficit Limitations: no limitations Course Vital Signs 06/17/18 06/17/18 06/17/18 17:15 19:19 20:55 Temperature 98 F Pulse Rate 69 68 80 Respiratory 18 16 16 Rate Blood Pressure 115/75 116/70 120/66 O2 Sat by Pulse 97 98 99 Oximetry Medical Decision Making - Medical Decision Making Residual female presenting with back pain and abdominal pain. Initial exam the patient is awake, alert, and appears uncomfortable. VSS. Patient was recently seen and discharged at the end of April for similar symptoms. However at that time she had acute pancreatitis. The patient CT at that show that time showed a chronic dilatation of her biliary tree. She is evaluated by GI she had negative serology, AMA, CA 199. Her laboratory workup normalized, her abdominal pain subsided and she was discharged home. The patient states the pain today is less severe. She has no chest pain, shortness of breath. She is neurologically intact with 2+ DP pulses. Her laboratory workup revealed a leukopenia and chronic anemia was otherwise negative for any kind of acute process. Patient CT showed no new acute process. She was given 50 g of fentanyl half a milligram of Dilaudid without any improvement in her symptoms. I spoke with Dr. Miranda 's agreeable to an observation status for intractable abdominal pain with a surgery consult. Still awaiting UA from patient and will sign out to the oncoming physician. Patient is currently stable for transfer to floor. - Lab Data Result diagrams: 06/17/18 19:05 06/17/18 19:05 Lab Results 06/17/18 06/17/18 Range/Units 19:05 19:05 WBC 2.8 L (3.8-10.6) k/uL RBC 3.88 (3.80-5.40) m/uL Hgb 10.2 L (11.4-16.0) gm/dL Hct 32.5 L (34.0-46.0) % MCV 83.6 (80.0-100.0) fL MCH 26.4 (25.0-35.0) pg MCHC 31.5 (31.0-37.0) g/dL RDW 15.5 (11.5-15.5) % Plt Count 166 (150-450) k/uL Neutrophils % 47 % Lymphocytes % 31 % Monocytes % 13 % Eosinophils % 4 % Basophils % 1 % Neutrophils # 1.3 (1.3-7.7) k/uL Lymphocytes # 0.9 L (1.0-4.8) k/uL Monocytes # 0.4 (0-1.0) k/uL Eosinophils # 0.1 (0-0.7) k/uL Basophils # 0.0 (0-0.2) k/uL Sodium 142 (137-145) mmol/L Potassium 3.8 (3.5-5.1) mmol/L Chloride 108 H (98-107) mmol/L Carbon Dioxide 25 (22-30) mmol/L Anion Gap 9 mmol/L BUN 12 (7-17) mg/dL Creatinine 0.70 (0.52-1.04) mg/dL Est GFR (CKD-EPI)AfAm >90 (>60 ml/min/1.73 sqM) Est GFR (CKD-EPI)NonAf 84 (>60 ml/min/1.73 sqM) Glucose 82 (74-99) mg/dL Calcium 8.8 (8.4-10.2) mg/dL Total Bilirubin 0.9 (0.2-1.3) mg/dL Conjugated Bilirubin 0.0 (0.0-0.3) mg/dL Unconjugated Bilirubin 0.7 (0.0-1.1) mg/dL Delta Bilirubin 0.2 (0.0-0.2) mg/dL AST 22 (14-36) U/L ALT 28 (9-52) U/L Alkaline Phosphatase 78 (38-126) U/L Total Protein 6.3 (6.3-8.2) g/dL Albumin 3.6 (3.5-5.0) g/dL Lipase 78 (23-300) U/L Disposition Clinical Impression: Intractable abdominal pain, Lumbar back pain, Leukopenia Disposition: ADMITTED IP TO THIS [facility] Condition: Good Referrals: Molly Delgadillo MD [Primary Care Provider] - 1-2 days Decision Date: 06/17/18 Decision Time: 21:26
[2018-06-17 19:14] LABS: Basophils % (A) 1 %; Eosinophils # (A) 0.1 k/uL (0-0.7); Eosinophils % (A) 4 %; HCT 32.5 % (34.0-46.0); HGB 10.2 gm/dL (11.4-16.0); Lymphocytes # (A) 0.9 k/uL (1.0-4.8); Lymphocytes % (A) 31 %; MCH 26.4 pg (25.0-35.0); MCHC 31.5 g/dL (31.0-37.0); MCV 83.6 fL (80.0-100.0); Mean Platelet Volume 7.2; Monocytes # (A) 0.4 k/uL (0-1.0); Monocytes % (A) 13 %; Neutrophils # (A) 1.3 k/uL (1.3-7.7); Neutrophils % (A) 47 %; Platelet Count 166 k/uL (150-450); RBC 3.88 m/uL (3.80-5.40); RDW 15.5 % (11.5-15.5); WBC 2.8 k/uL (3.8-10.6)
[2018-06-17 19:41] LABS: ALT 28 U/L (9-52); AST 22 U/L (14-36); Albumin 3.6 g/dL (3.5-5.0); Alkaline Phosphatase 78 U/L (38-126); Anion Gap 9 mmol/L; Bilirubin, Delta 0.2 mg/dL (0.0-0.2); Bilirubin,Unconjugated 0.7 mg/dL (0.0-1.1); Blood Urea Nitrogen 12 mg/dL (7-17); Calcium 8.8 mg/dL (8.4-10.2); Carbon Dioxide 25 mmol/L (22-30); Chloride 108 mmol/L (98-107); Glucose 82 mg/dL (74-99); Lipase 78 U/L (23-300); Potassium 3.8 mmol/L (3.5-5.1); Sodium 142 mmol/L (137-145); Total Bilirubin 0.9 mg/dL (0.2-1.3); Total Protein 6.3 g/dL (6.3-8.2)
[2018-06-17] MEDS ORDERED: HYDROmorphone 0.5 MG/0.5 ML SYRINGE IVP STA (20:52)
--- NOTE | 2018-06-17 20:52 | CT ---
EXAMINATION TYPE: CT lumbar spine w con DATE OF EXAM: 06/17/2018 COMPARISON: None HISTORY: Right sided pain CT DLP: 486.7 mGycm Automated exposure control for dose reduction was used. CONTRAST: CT scan of the lumbar is performed with IV Contrast, patient injected with 100 mL of Isovue 300. Enhanced CT of the lumbar spine was performed. Bone and soft tissue window settings are submitted as well as coronal and sagittal reconstructions. Lumbar vertebra have normal alignment. Disc spaces are fairly normal. There is no compression fractur e. There is osteopenia. There is some hypertrophic facet arthropathy in the lower lumbar spine at L4- 5 and L5-S1. I see no evidence of bony spinal stenosis. There is no lumbar paraspinal mass. There is some lateral recess stenosis due to facet arthropathy at L3-4 L4-5. Sacroiliac joints appear intact. I see no focal bone destruction. IMPRESSION: Mild facet arthropathy. No fracture. No spinal stenosis. 2 cm left renal cortical cyst noted.
--- NOTE | 2018-06-17 20:58 | CT ---
EXAMINATION TYPE: CT abdomen pelvis w con DATE OF EXAM: 06/17/2018 COMPARISON: 05/20/2018 HISTORY: Right sided pain CT DLP: 486.7 mGycm Automated exposure control for dose reduction was used. TECHNIQUE: Helical acquisition of images was performed from the lung bases through the pelvis. CONTRAST: Performed without Oral Contrast and with IV Contrast, patient injected with 100 mL of Isovue 300. FINDINGS: Lung bases are clear of consolidation. There is no pleural effusion. Heart is enlarged. There are chinyere gical clips at the gastric fundus. There are multiple hepatic cysts that measure up to 4 cm. There ar e large central bile ducts.. Common bile duct measures 1 cm. There are clips from cholecystectomy. Sp rené appears normal. There is no adrenal mass. Kidneys show satisfactory contrast opacification. There is no hydronephrosi s. There are bilateral renal cortical cysts that measure up to 2 cm. There is no retroperitoneal cathy opathy. There is no ascites. There is no sign of free air. Bladder distends smoothly. I see no pelvic mass. There is no evidence of a thickened appendix. Appendix appears normal. Lumbar spine is intact. IMPRESSION: CARDIOMEGALY. MULTIPLE HEPATIC AND RENAL CYSTS. NORMAL APPENDIX. PREVIOUS SURGERY. NO SIGN OF AN ACUT E ABDOMEN AND PELVIS. NO ADVERSE CHANGE COMPARED TO OLD EXAM. LARGE CENTRAL BILE DUCTS WITHOUT CHANGE .
[2018-06-17] MEDS ORDERED: HYDROmorphone 0.5 MG/0.5 ML SYRINGE IVP PRN (21:27)
[2018-06-17] MEDS ORDERED: ONDANSETRON 4 MG/2 ML VIAL IVP PRN (21:27)
[2018-06-17] MEDS ORDERED: ACETAMINOPHEN TAB 325 MG TAB PO PRN (21:27)
[2018-06-17] MEDS ORDERED: NALOXONE 0.4 MG/ML 1 ML VIAL IV PRN (21:27)
[2018-06-17] MEDS ORDERED: TEMAZEPAM 15 MG CAP PO PRN (21:30)
[2018-06-17 22:03] LABS: Appearance,Urine Clear (Clear); Bilirubin,Urine Negative (Negative); Blood,Urine Negative (Negative); Budding Yeast,Urine Occasional /hpf; Color,Urine Yellow; Glucose,Urine (UA) Negative (Negative); Ketones,Urine Trace (Negative); Leukocyte Esterase,Urine Moderate (Negative); Mucus,Urine Rare /hpf; Nitrite,Urine Negative (Negative); PH, Urine 6.5 (5.0-8.0); Protein,Urine Negative (Negative); RBC,Urine 1 /hpf (0-5); Specific Gravity,Urine 1.029 (1.001-1.035); Squamous Epithelial Cell,Urine <1 /hpf (0-4); WBC,Urine 10 /hpf (0-5)
[2018-06-17 22:34] VITALS: BMI 21.4
[2018-06-17] MEDS: oxyCODONE-APAP 5-325MG 1 EACH TAB PO PRN (23:13)
[2018-06-17] MEDS: SODIUM CHLORIDE 0.9% 1,000 ML IV SCH (23:18)
[2018-06-18] MEDS ORDERED: LEVOTHYROXINE 100 MCG TAB PO SCH (06:30)
[2018-06-18] MEDS ORDERED: LEVOTHYROXINE 75 MCG TAB PO SCH (06:30)
[2018-06-18] MEDS: oxyCODONE-APAP 5-325MG 1 EACH TAB PO PRN (06:54)
[2018-06-18 08:00] LABS: Basophils % (A) 1 %; Eosinophils # (A) 0.1 k/uL (0-0.7); Eosinophils % (A) 5 %; HCT 29.6 % (34.0-46.0); HGB 9.3 gm/dL (11.4-16.0); Hypochromasia Moderate; Lymphocytes # (A) 0.7 k/uL (1.0-4.8); Lymphocytes % (A) 34 %; MCH 27.1 pg (25.0-35.0); MCHC 31.5 g/dL (31.0-37.0); MCV 85.9 fL (80.0-100.0); Mean Platelet Volume 7.2; Monocytes # (A) 0.3 k/uL (0-1.0); Monocytes % (A) 11 %; Neutrophils % (A) 47 %; Platelet Count 146 k/uL (150-450); RBC 3.45 m/uL (3.80-5.40); RDW 15.5 % (11.5-15.5); WBC 2.2 k/uL (3.8-10.6)
[2018-06-18 08:11] LABS: Anion Gap 5 mmol/L; Blood Urea Nitrogen 10 mg/dL (7-17); Calcium 8.3 mg/dL (8.4-10.2); Carbon Dioxide 26 mmol/L (22-30); Chloride 111 mmol/L (98-107); Glucose 59 mg/dL (74-99); Sodium 142 mmol/L (137-145)
[2018-06-18] MEDS ORDERED: FUROSEMIDE 20 MG TAB PO SCH (09:00)
[2018-06-18] MEDS ORDERED: PRAVASTATIN SODIUM 20 MG TAB PO SCH (09:00)
[2018-06-18] MEDS ORDERED: DABIGATRAN 150 MG CAP PO SCH (09:00)
[2018-06-18] MEDS ORDERED: DIGOXIN 125 MCG TAB PO SCH (09:00)
[2018-06-18] MEDS ORDERED: METOPROLOL TARTRATE 12.5 MG TAB PO SCH (09:00)
[2018-06-18] MEDS ORDERED: CITALOPRAM HYDROBROMIDE 20 MG TAB PO SCH (09:00)
[2018-06-18 09:07] LABS: Glucose,Whole Blood 70 mg/dL (75-99)
[2018-06-18] MEDS ORDERED: HYDROmorphone 1 MG/ML 1 ML SYRINGE IVP PRN (09:43)
[2018-06-18] MEDS: SODIUM CHLORIDE 0.9% 1,000 ML IV SCH ×2 (11:05→12:37)
[2018-06-18 11:33] LABS: Glucose,Whole Blood 54 mg/dL (75-99)
[2018-06-18] MEDS ORDERED: MULTIVITAMINS, THERA 1 EACH TAB PO SCH (12:00)
[2018-06-18 12:04] LABS: Glucose,Whole Blood 105 mg/dL (75-99)
[2018-06-18 12:36] VITALS: RESP 18
--- NOTE | 2018-06-18 13:12 | P.GSCN ---
History of Present Illness Consult date: 06/18/18 Reason for Consult: Abdominal pain Past Medical History Past Medical History: Atrial Fibrillation, CVA/TIA, Hypertension Additional Past Medical History / Comment(s): Mitral Regurgitation. Vlave replacement 3 years ago. 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 Patient states she was having migraine headaches and was told to see a neurologist, it was then he found the TIAs. 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 Past Anesthesia/Blood Transfusion Reactions: No Reported Reaction Past Psychological History: Depression Smoking Status: Former smoker Past Alcohol Use History: None Reported Past Drug Use History: None Reported Additional Drug Use History / Comment(s): Patient reports she stopped started smoking in s and stopped in 1979. - Past Family History Mother Family Medical History: Cancer Additional Family Medical History / Comment(s): Partial colon removed due to cancer, migraines, allergies. Sister(s) Family Medical History: Cancer Additional Family Medical History / Comment(s): Sister Lise: lymphoma, past smoker, breast cysts that she had fluid removed. Medications and Allergies Home Medications Medication Instructions Recorded Confirmed Type ALPRAZolam [Xanax] 0.25 mg PO TID PRN 03/18/15 06/18/18 History Aspirin 81 mg PO DAILY 03/18/15 06/18/18 History Dabigatran [Pradaxa] 150 mg PO BID 03/18/15 06/18/18 History Digoxin [Lanoxin] 125 mcg PO DAILY 03/18/15 06/18/18 History Multivitamins, Thera [Multivitamin 1 each PO DAILY@1200 03/18/15 06/18/18 History (formulary)] Pravastatin Sodium [Pravachol] 20 mg PO DAILY 03/18/15 06/18/18 History Temazepam [Restoril] 30 mg PO HS PRN 03/18/15 06/18/18 History Furosemide [Lasix] 20 mg PO DAILY 05/20/18 06/18/18 History Levothyroxine Sodium [Synthroid] 175 mcg PO DAILY 05/20/18 06/18/18 History Metoprolol Tartrate [Lopressor] 12.5 mg PO BID 05/20/18 06/18/18 History Topiramate 50 mg PO DAILY 05/20/18 06/18/18 History Bisacodyl [Dulcolax] 10 mg PO HS 06/17/18 06/18/18 History Citalopram Hydrobromide 40 mg PO DAILY 06/17/18 06/18/18 History [Citalopram HBr] Omeprazole [PriLOSEC] 40 mg PO KANDY-SHELBY #14 capsule. 06/18/18 Rx traMADol HCL [Ultram] 50 mg PO Q4HR PRN 3 Days #18 tab 06/18/18 Rx Allergies Allergy/AdvReac Type Severity Reaction Status Date / Time morphine Allergy Nausea Verified 06/18/18 08:27 Surgical - Exam Vital Signs Temp Pulse Resp BP Pulse Ox 98 F 69 18 115/75 97 06/17/18 17:15 06/17/18 17:15 06/17/18 17:15 06/17/18 17:15 06/17/18 17:15 Results - Labs 06/18/18 07:15 06/18/18 07:15 Abnormal Lab Results - Last 24 Hours (Table) 06/17/18 06/17/18 06/17/18 Range/Units 19:05 19:05 21:45 WBC 2.8 L (3.8-10.6) k/uL RBC (3.80-5.40) m/uL Hgb 10.2 L (11.4-16.0) gm/dL Hct 32.5 L (34.0-46.0) % Plt Count (150-450) k/uL Neutrophils # (1.3-7.7) k/uL Lymphocytes # 0.9 L (1.0-4.8) k/uL Chloride 108 H (98-107) mmol/L Glucose (74-99) mg/dL POC Glucose (mg/dL) (75-99) mg/dL Calcium (8.4-10.2) mg/dL Urine Ketones Trace H (Negative) Ur Leukocyte Esterase Moderate H (Negative) Urine WBC 10 H (0-5) /hpf Urine Mucus Rare H (None) /hpf Urine Yeast (Budding) Occasional H (None) /hpf 06/18/18 06/18/18 06/18/18 Range/Units 07:15 07:15 09:06 WBC 2.2 L (3.8-10.6) k/uL RBC 3.45 L (3.80-5.40) m/uL Hgb 9.3 L (11.4-16.0) gm/dL Hct 29.6 L (34.0-46.0) % Plt Count 146 L (150-450) k/uL Neutrophils # 1.0 L (1.3-7.7) k/uL Lymphocytes # 0.7 L (1.0-4.8) k/uL Chloride 111 H (98-107) mmol/L Glucose 59 L (74-99) mg/dL POC Glucose (mg/dL) 70 L (75-99) mg/dL Calcium 8.3 L (8.4-10.2) mg/dL Urine Ketones (Negative) Ur Leukocyte Esterase (Negative) Urine WBC (0-5) /hpf Urine Mucus (None) /hpf Urine Yeast (Budding) (None) /hpf 06/18/18 06/18/18 Range/Units 11:31 12:00 WBC (3.8-10.6) k/uL RBC (3.80-5.40) m/uL Hgb (11.4-16.0) gm/dL Hct (34.0-46.0) % Plt Count (150-450) k/uL Neutrophils # (1.3-7.7) k/uL Lymphocytes # (1.0-4.8) k/uL Chloride (98-107) mmol/L Glucose (74-99) mg/dL POC Glucose (mg/dL) 54 L 105 H (75-99) mg/dL Calcium (8.4-10.2) mg/dL Urine Ketones (Negative) Ur Leukocyte Esterase (Negative) Urine WBC (0-5) /hpf Urine Mucus (None) /hpf Urine Yeast (Budding) (None) /hpf Diabetes panel 06/17/18 06/18/18 Range/Units 19:05 07:15 Sodium 142 142 (137-145) mmol/L Potassium 3.8 4.0 (3.5-5.1) mmol/L Chloride 108 H 111 H (98-107) mmol/L Carbon Dioxide 25 26 (22-30) mmol/L BUN 12 10 (7-17) mg/dL Creatinine 0.70 0.67 (0.52-1.04) mg/dL Glucose 82 59 L (74-99) mg/dL Calcium 8.8 8.3 L (8.4-10.2) mg/dL AST 22 (14-36) U/L ALT 28 (9-52) U/L Alkaline Phosphatase 78 (38-126) U/L Total Protein 6.3 (6.3-8.2) g/dL Albumin 3.6 (3.5-5.0) g/dL Calcium panel 06/17/18 06/18/18 Range/Units 19:05 07:15 Calcium 8.8 8.3 L (8.4-10.2) mg/dL Albumin 3.6 (3.5-5.0) g/dL Pituitary panel 06/17/18 06/18/18 Range/Units 19:05 07:15 Sodium 142 142 (137-145) mmol/L Potassium 3.8 4.0 (3.5-5.1) mmol/L Chloride 108 H 111 H (98-107) mmol/L Carbon Dioxide 25 26 (22-30) mmol/L BUN 12 10 (7-17) mg/dL Creatinine 0.70 0.67 (0.52-1.04) mg/dL Glucose 82 59 L (74-99) mg/dL Calcium 8.8 8.3 L (8.4-10.2) mg/dL Adrenal panel 06/17/18 06/18/18 Range/Units 19:05 07:15 Sodium 142 142 (137-145) mmol/L Potassium 3.8 4.0 (3.5-5.1) mmol/L Chloride 108 H 111 H (98-107) mmol/L Carbon Dioxide 25 26 (22-30) mmol/L BUN 12 10 (7-17) mg/dL Creatinine 0.70 0.67 (0.52-1.04) mg/dL Glucose 82 59 L (74-99) mg/dL Calcium 8.8 8.3 L (8.4-10.2) mg/dL Total Bilirubin 0.9 (0.2-1.3) mg/dL AST 22 (14-36) U/L ALT 28 (9-52) U/L Alkaline Phosphatase 78 (38-126) U/L Total Protein 6.3 (6.3-8.2) g/dL Albumin 3.6 (3.5-5.0) g/dL Assessment and Plan Assessment: Impression Present on admission left sided back pain radiating to the left lower quadrant of the abdomen Constipation Recent admission for acute pancreatitis unclear etiology May 2018 History of justo-en-y gastric bypass History of a cholecystectomy History of CVA History of atrial fibrillation on pradaxa A recent admission in April 2018 for abdominal pain with a CAT scan done showed no acute process Leukopenia Plan Pain control No evidence of an acute surgical abdomen Home meds as appropriate IV fluid hydration Will follow with you with further surgical recommendations pending clinical course Surgical consultation note dictated for Dr. otto The above impression and plan of care have been discussed and directed by signing physician. Joselin Birch nurse practitioner acting as scribe for signing physician.
--- NOTE | 2018-06-18 14:40 | P.HPIM ---
History of Present Illness 78-year-old the pleasant female came in with complains of 7/10 sharp left lower back pain radiating to left mid abdomen and radiating to the left buttock area. Patient denied any fever chills patient had a CAT scan of the abdomen and lumbar cervical spine CT which showed facet arthropathy at L3-L4 and L4-L5. No other significant abnormalities were appreciated and CAT scan of the abdomen except for close inhibitor left renal cortical cyst which she to be followed as an outpatient. Patient denied any fever chills shortness of breath her lipase is essentially within normal limits. Will ablate the patient will get PT and OT opinion patient appears to have chronic low back pain without any red flag signs. Patient has mildly elevated lipase minimal bacteria in the urine although patient does not have any UTI symptoms patient has a symptom any bacteria which doesn't warrant any antibiotics patient. Patient is bit leukopenic with neutrophil count of 1300, patient had similar neutrophil count earlier this month when she was admitted for pancreatitis. Patient MCV is within normal limits patient may have combined iron deficiency B12 or folate deficiency because of which I'm opting all these test which need to be followed as an outpatient. My suspicion is low that patient's sepsis is contributing to her leukopenia or neutropenia. Review of Systems REVIEW OF SYSTEMS: CONSTITUTIONAL: No fever, no malaise, no fatigue. HEENT: No recent visual problems or hearing problems. Denied any sore throat. CARDIOVASCULAR: No chest pain, orthopnea, PND, no palpitations, no syncope. PULMONARY: No shortness of breath, no cough, no hemoptysis. GASTROINTESTINAL: No diarrhea, no nausea, no vomiting, no abdominal pain. Normoactive bowel sounds. NEUROLOGICAL: No headaches, no weakness, no numbness. HEMATOLOGICAL: Denies any bleeding or petechiae. GENITOURINARY: Denies any burning micturition, frequency, or urgency. MUSCULOSKELETAL/RHEUMATOLOGICAL: As mentioned in HPI ENDOCRINE: Denies any polyuria or polydipsia. The rest of the 14-point review of systems is negative. Past Medical History Past Medical History: Atrial Fibrillation, CVA/TIA, Hypertension Additional Past Medical History / Comment(s): Mitral Regurgitation. Vlave replacement 3 years ago. 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 Patient states she was having migraine headaches and was told to see a neurologist, it was then he found the TIAs. 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 Past Anesthesia/Blood Transfusion Reactions: No Reported Reaction Past Psychological History: Depression Smoking Status: Former smoker Past Alcohol Use History: None Reported Past Drug Use History: None Reported Additional Drug Use History / Comment(s): Patient reports she stopped started smoking in s and stopped in 1979. - Past Family History Mother Family Medical History: Cancer Additional Family Medical History / Comment(s): Partial colon removed due to cancer, migraines, allergies. Sister(s) Family Medical History: Cancer Additional Family Medical History / Comment(s): Sister Lise: lymphoma, past smoker, breast cysts that she had fluid removed. Medications and Allergies Home Medications Medication Instructions Recorded Confirmed Type ALPRAZolam [Xanax] 0.25 mg PO TID PRN 03/18/15 06/18/18 History Aspirin 81 mg PO DAILY 03/18/15 06/18/18 History Dabigatran [Pradaxa] 150 mg PO BID 03/18/15 06/18/18 History Digoxin [Lanoxin] 125 mcg PO DAILY 03/18/15 06/18/18 History Multivitamins, Thera [Multivitamin 1 each PO DAILY@1200 03/18/15 06/18/18 History (formulary)] Pravastatin Sodium [Pravachol] 20 mg PO DAILY 03/18/15 06/18/18 History Temazepam [Restoril] 30 mg PO HS PRN 03/18/15 06/18/18 History Furosemide [Lasix] 20 mg PO DAILY 05/20/18 06/18/18 History Levothyroxine Sodium [Synthroid] 175 mcg PO DAILY 05/20/18 06/18/18 History Metoprolol Tartrate [Lopressor] 12.5 mg PO BID 05/20/18 06/18/18 History Topiramate 50 mg PO DAILY 05/20/18 06/18/18 History Bisacodyl [Dulcolax] 10 mg PO HS 06/17/18 06/18/18 History Citalopram Hydrobromide 40 mg PO DAILY 06/17/18 06/18/18 History [Citalopram HBr] Omeprazole [PriLOSEC] 40 mg PO AC-BRKFST #14 capsule. 06/18/18 Rx traMADol HCL [Ultram] 50 mg PO Q4HR PRN 3 Days #18 tab 06/18/18 Rx Allergies Allergy/AdvReac Type Severity Reaction Status Date / Time morphine Allergy Nausea Verified 06/18/18 08:27 Physical Exam Vitals: Vital Signs Temp Pulse Pulse Pulse Resp BP BP 06/18/18 12:33 97 F L 97 70 18 97/56 06/18/18 07:09 96.7 F L 72 16 105/67 06/18/18 05:00 97.8 F 67 16 105/55 06/17/18 22:04 97.8 F 88 18 133/76 06/17/18 22:01 98.2 F 80 18 132/66 06/17/18 20:55 80 16 120/66 06/17/18 19:19 68 16 116/70 06/17/18 17:15 98 F 69 18 115/75 Pulse Ox 06/18/18 12:33 06/18/18 07:09 06/18/18 05:00 97 06/17/18 22:04 98 06/17/18 22:01 99 06/17/18 20:55 99 06/17/18 19:19 98 06/17/18 17:15 97 Intake and Output 06/17/18 06/18/18 06/18/18 22:59 06:59 14:59 Intake Total 525 240 Balance 525 240 Intake: Intake, IV Titration 525 Amount Sodium Chloride 0.9% 1, 525 000 ml @ 75 mls/hr IV . [id number] REPLACED BY [facility] Rx#:[id number] Oral 240 Other: Voiding Method Toilet Toilet Weight 56.5 kg PHYSICAL EXAMINATION: GENERAL: The patient is alert and oriented x3, not in any acute distress. Well developed, well nourished. HEENT: Pupils are round and equally reacting to light. EOMI. No scleral icterus. No conjunctival pallor. Normocephalic, atraumatic. No pharyngeal erythema. No thyromegaly. CARDIOVASCULAR: S1 and S2 present. No murmurs, rubs, or gallops. PULMONARY: Chest is clear to auscultation, no wheezing or crackles. ABDOMEN: Soft, nontender, nondistended, normoactive bowel sounds. No palpable organomegaly. MUSCULOSKELETAL: No joint swelling or deformity. EXTREMITIES: No cyanosis, clubbing, or pedal edema. NEUROLOGICAL: Gross neurological examination did not reveal any focal deficits. SKIN: No rashes. Results CBC & Chem 7: 06/18/18 07:15 06/18/18 07:15 Labs: Abnormal Lab Results - Last 24 Hours (Table) 06/17/18 06/17/18 06/17/18 Range/Units 19:05 19:05 21:45 WBC 2.8 L (3.8-10.6) k/uL RBC (3.80-5.40) m/uL Hgb 10.2 L (11.4-16.0) gm/dL Hct 32.5 L (34.0-46.0) % Plt Count (150-450) k/uL Neutrophils # (1.3-7.7) k/uL Lymphocytes # 0.9 L (1.0-4.8) k/uL Chloride 108 H (98-107) mmol/L Glucose (74-99) mg/dL POC Glucose (mg/dL) (75-99) mg/dL Calcium (8.4-10.2) mg/dL Urine Ketones Trace H (Negative) Ur Leukocyte Esterase Moderate H (Negative) Urine WBC 10 H (0-5) /hpf Urine Mucus Rare H (None) /hpf Urine Yeast (Budding) Occasional H (None) /hpf 06/18/18 06/18/18 06/18/18 Range/Units 07:15 07:15 09:06 WBC 2.2 L (3.8-10.6) k/uL RBC 3.45 L (3.80-5.40) m/uL Hgb 9.3 L (11.4-16.0) gm/dL Hct 29.6 L (34.0-46.0) % Plt Count 146 L (150-450) k/uL Neutrophils # 1.0 L (1.3-7.7) k/uL Lymphocytes # 0.7 L (1.0-4.8) k/uL Chloride 111 H (98-107) mmol/L Glucose 59 L (74-99) mg/dL POC Glucose (mg/dL) 70 L (75-99) mg/dL Calcium 8.3 L (8.4-10.2) mg/dL Urine Ketones (Negative) Ur Leukocyte Esterase (Negative) Urine WBC (0-5) /hpf Urine Mucus (None) /hpf Urine Yeast (Budding) (None) /hpf 06/18/18 06/18/18 Range/Units 11:31 12:00 WBC (3.8-10.6) k/uL RBC (3.80-5.40) m/uL Hgb (11.4-16.0) gm/dL Hct (34.0-46.0) % Plt Count (150-450) k/uL Neutrophils # (1.3-7.7) k/uL Lymphocytes # (1.0-4.8) k/uL Chloride (98-107) mmol/L Glucose (74-99) mg/dL POC Glucose (mg/dL) 54 L 105 H (75-99) mg/dL Calcium (8.4-10.2) mg/dL Urine Ketones (Negative) Ur Leukocyte Esterase (Negative) Urine WBC (0-5) /hpf Urine Mucus (None) /hpf Urine Yeast (Budding) (None) /hpf Thrombosis Risk Factor Assmnt - Choose All That Apply Any of the Below Risk Factors Present?: No Other Risk Factors: Yes Each Risk Factor Represents 3 Points: Age 75 years or older Other congenital or acquired thrombophilia - If yes, enter type in comment: No Thrombosis Risk Factor Assessment Total Risk Factor Score: 3 Thrombosis Risk Factor Assessment Level: Moderate Risk Assessment and Plan Plan: -Back pain and abdominal pain: Secondary to rigidity the generator lumbar spine disease patient may need physical therapy as outpatient patient will be discharged on anti-inflammatory tramadol, I'm not using any nonsteroidal anti- inflammatory medications tramadol -Leukopenia and neutropenia: Probably secondary to nutritional deficiency of B12 or folic acid along with iron deficiency all these labs will be obtained patient does have history of gastric bypass surgery -History of atrial fibrillation rate controlled at this time, continue with anti -correlation -Gastroesophageal reflux disease
--- NOTE | 2018-06-18 14:46 | P.DS ---
Providers Date of admission: 06/17/18 21:27 Attending physician: Kingsley Miranda Consults: 06/17/18 21:28 Consult Physician Routine Consulting Provider: Abhishek Greenberg Consult Reason/Comments: Intractable abdominal pain Do you want consulting provider notified?: Yes Primary care physician: [facility] Course: Please refer to my HPI Patient Condition at Discharge: Good Plan - Discharge Summary Discharge Rx Participant: No New Discharge Prescriptions: New traMADol HCL [Ultram] 50 mg PO Q4HR PRN 3 Days #18 tab PRN Reason: Pain Omeprazole [PriLOSEC] 40 mg PO AC-BRKFST #14 capsule.dr No Action Temazepam [Restoril] 30 mg PO HS PRN PRN Reason: Insomnia Pravastatin Sodium [Pravachol] 20 mg PO DAILY Multivitamins, Thera [Multivitamin (formulary)] 1 each PO DAILY@1200 Digoxin [Lanoxin] 125 mcg PO DAILY Dabigatran [Pradaxa] 150 mg PO BID Aspirin 81 mg PO DAILY ALPRAZolam [Xanax] 0.25 mg PO TID PRN PRN Reason: Anxiety Furosemide [Lasix] 20 mg PO DAILY Levothyroxine Sodium [Synthroid] 175 mcg PO DAILY Metoprolol Tartrate [Lopressor] 12.5 mg PO BID Topiramate 50 mg PO DAILY Bisacodyl [Dulcolax] 10 mg PO HS Citalopram Hydrobromide [Citalopram HBr] 40 mg PO DAILY Discharge Medication List ALPRAZolam [Xanax] 0.25 mg PO TID PRN 03/18/15 [History] Aspirin 81 mg PO DAILY 03/18/15 [History] Dabigatran [Pradaxa] 150 mg PO BID 03/18/15 [History] Digoxin [Lanoxin] 125 mcg PO DAILY 03/18/15 [History] Multivitamins, Thera [Multivitamin (formulary)] 1 each PO DAILY@1200 03/18/15 [ History] Pravastatin Sodium [Pravachol] 20 mg PO DAILY 03/18/15 [History] Temazepam [Restoril] 30 mg PO HS PRN 03/18/15 [History] Furosemide [Lasix] 20 mg PO DAILY 05/20/18 [History] Levothyroxine Sodium [Synthroid] 175 mcg PO DAILY 05/20/18 [History] Metoprolol Tartrate [Lopressor] 12.5 mg PO BID 05/20/18 [History] Topiramate 50 mg PO DAILY 05/20/18 [History] Bisacodyl [Dulcolax] 10 mg PO HS 06/17/18 [History] Citalopram Hydrobromide [Citalopram HBr] 40 mg PO DAILY 06/17/18 [History] Omeprazole [PriLOSEC] 40 mg PO MYNOR #14 capsule. 06/18/18 [Rx] traMADol HCL [Ultram] 50 mg PO Q4HR PRN 3 Days #18 tab 06/18/18 [Rx] Follow up Appointment(s)/Referral(s): Molly Delgadillo MD [Primary Care Provider] - 06/20/18 2:30 pm Patient Instructions/Handouts: Omeprazole (By mouth), Tramadol (By mouth), Acute Abdominal Pain (ED), Back Pain (GEN) Discharge Disposition: HOME SELF-CARE
[2018-06-18 15:22] VITALS: BP 136/64; PULSE 70; TEMP 98
[2018-06-18 18:31] LABS: Folate, Serum 22.6 ng/mL
== END 2018-06-18 16:40 | disposition home or self-care (01) ==
LOC: EC 17:09 → 5MS5E 21:27
PROVIDERS: ADMIT Internal Medicine; ATTEND Internal Medicine
DX: M46.86 Other specified inflammatory spondylopathies, lumbar region (principal); M53.86 Other specified dorsopathies, lumbar region; D70.9 Neutropenia, unspecified; D64.9 Anemia, unspecified; I48.91 Unspecified atrial fibrillation; I10 Essential (primary) hypertension; I34.0 Nonrheumatic mitral (valve) insufficiency; F32.9 Major depressive disorder, single episode, unspecified; R11.0 Nausea; F17.200 Nicotine dependence, unspecified, uncomplicated; K59.00 Constipation, unspecified; G89.29 Other chronic pain; K21.9 Gastro-esophageal reflux disease without esophagitis; Z79.02 Long term (current) use of antithrombotics/antiplatelets; Z79.82 Long term (current) use of aspirin; Z79.890 Hormone replacement therapy; Z79.899 Other long term (current) drug therapy; Z88.5 Allergy status to narcotic agent; Z86.73 Personal history of transient ischemic attack (TIA), and cerebral infarction without residual deficits; Z90.710 Acquired absence of both cervix and uterus; Z98.84 Bariatric surgery status; Z95.2 Presence of prosthetic heart valve; Z87.19 Personal history of other diseases of the digestive system; Z80.7 Family history of other malignant neoplasms of lymphoid, hematopoietic and related tissues; Z80.0 Family history of malignant neoplasm of digestive organs; Z81.2 Family history of tobacco abuse and dependence; Z82.0 Family history of epilepsy and other diseases of the nervous system
CPT/HCPCS: 96375 ×3; 96376 ×3; 96361 ×2; 96374 ×2; 99285 ×2; 36415; 97162; 82747; 80048 ×2; 80076; 82607; 82728; 82746; 83690; 85025 ×2; 81001; 72132; 74177; G0378 ×2; J2405; J3010; J1170 ×3; Q9967

== ENCOUNTER 2018-07-11 11:18 | Emergency (ER) | payer MEDICARE ==
[2018-07-11 11:53] VITALS: BP 134/70; PULSE 67; RESP 18; TEMP 98.1
--- NOTE | 2018-07-11 12:16 | XR ---
EXAMINATION TYPE: XR ankle complete RT DATE OF EXAM: 07/11/2018 COMPARISON: NONE HISTORY: Pain FINDINGS: Three views of the ankle demonstrate the ankle mortise to be intact and symmetric. The joint spaces are preserved. The osseous structures are intact. Diffuse soft tissue edema noted there is mild ost eopenia. Calcification the soft tissues anterior to the tibia noted and there is a calcaneal spur. No destructive changes seen. IMPRESSION: 1. No definite acute fracture or dislocation, if symptoms persist follow-up study in 7 to 10 days wou ld be suggested. 2. Diffuse soft tissue edema.
--- NOTE | 2018-07-11 12:48 | ED ---
General Adult HPI - General Chief complaint: Extremity Problem,Nontraumatic Stated complaint: Ankle pain/Swelling Time Seen by Provider: 07/11/18 11:20 Source: patient, RN notes reviewed Mode of arrival: ambulatory Limitations: no limitations - History of Present Illness Initial comments: This is a 72 citral female presents emergency Department complaining of right lateral ankle pain. Patient states yesterday was a little sore but today is more swollen and very sore and it is difficult for her to ambulate. Patient denies any known injury. Patient denies any redness or any warmth to the area. Patient states that there is very swollen and tender but again denies any injury. Patient denies any foot pain patient denies any knee pain or hip pain. Patient denies any recent fever chills - Related Data Home Medications Medication Instructions Recorded Confirmed ALPRAZolam [Xanax] 0.25 mg PO TID PRN 03/18/15 06/18/18 Aspirin 81 mg PO DAILY 03/18/15 06/18/18 Dabigatran [Pradaxa] 150 mg PO BID 03/18/15 06/18/18 Digoxin [Lanoxin] 125 mcg PO DAILY 03/18/15 06/18/18 Multivitamins, Thera [Multivitamin 1 each PO DAILY@1200 03/18/15 06/18/18 (formulary)] Pravastatin Sodium [Pravachol] 20 mg PO DAILY 03/18/15 06/18/18 Temazepam [Restoril] 30 mg PO HS PRN 03/18/15 06/18/18 Furosemide [Lasix] 20 mg PO DAILY 05/20/18 06/18/18 Levothyroxine Sodium [Synthroid] 175 mcg PO DAILY 05/20/18 06/18/18 Metoprolol Tartrate [Lopressor] 12.5 mg PO BID 05/20/18 06/18/18 Topiramate 50 mg PO DAILY 05/20/18 06/18/18 Bisacodyl [Dulcolax] 10 mg PO HS 06/17/18 06/18/18 Citalopram Hydrobromide 40 mg PO DAILY 06/17/18 06/18/18 [Citalopram HBr] Previous Rx's Medication Instructions Recorded Omeprazole [PriLOSEC] 40 mg PO -VICKFST #14 wendi 06/18/18 traMADol HCL [Ultram] 50 mg PO Q4HR PRN 3 Days #18 tab 06/18/18 Allergies Allergy/AdvReac Type Severity Reaction Status Date / Time morphine Allergy Nausea Verified 07/11/18 11:52 Review of Systems ROS Statement: Those systems with pertinent positive or pertinent negative responses have been documented in the HPI. ROS Other: All systems not noted in ROS Statement are negative. Past Medical History Past Medical History: Atrial Fibrillation, CVA/TIA, Hypertension Additional Past Medical History / Comment(s): Mitral Regurgitation. Vlave replacement 3 years ago. 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 Patient states she was having migraine headaches and was told to see a neurologist, it was then he found the TIAs. 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 Past Anesthesia/Blood Transfusion Reactions: No Reported Reaction Past Psychological History: Depression Smoking Status: Former smoker Past Alcohol Use History: None Reported Past Drug Use History: None Reported - Past Family History Mother Family Medical History: Cancer Additional Family Medical History / Comment(s): Partial colon removed due to cancer, migraines, allergies. Sister(s) Family Medical History: Cancer Additional Family Medical History / Comment(s): Sister Lise: lymphoma, past smoker, breast cysts that she had fluid removed. General Exam - General Exam Comments Initial Comments: GENERAL Patient is well-developed and well-nourished. Patient is in mild distress. EYES Patient's pupils are equal and round. Extraocular motion is intact SKIN Unremarkable NEURO The patient is alert and oriented 3 PYSCH Patient has normal interpersonal interactions. MUSCULOSKELETAL Patient's right ankle is swollen on the lateral malleolus and is tender to touch. Limitations: no limitations Course Vital Signs 07/11/18 11:49 Temperature 98.1 F Pulse Rate 67 Respiratory 18 Rate Blood Pressure 134/70 O2 Sat by Pulse 100 Oximetry Disposition Clinical Impression: Right ankle sprain Disposition: HOME SELF-CARE Instructions: Ankle Sprain (ED) Additional Instructions: Patient should weight-bear as tolerated. Patient's take Motrin and Tylenol for pain. Is patient prescribed a controlled substance at d/c from ED?: No Referrals: Norris Haas DO [Doctor of Osteopathic Medicine] - 1-2 days Time of Disposition: 12:48
== END 2018-07-11 13:01 | disposition home or self-care (01) ==
LOC: EC 11:18
DX: S93.401A Sprain of unspecified ligament of right ankle, initial encounter (principal); I48.91 Unspecified atrial fibrillation; I10 Essential (primary) hypertension; F32.9 Major depressive disorder, single episode, unspecified; Z87.891 Personal history of nicotine dependence; Z88.5 Allergy status to narcotic agent; Z79.01 Long term (current) use of anticoagulants; Z79.82 Long term (current) use of aspirin; Z79.899 Other long term (current) drug therapy; Z86.73 Personal history of transient ischemic attack (TIA), and cerebral infarction without residual deficits; X58.XXXA Exposure to other specified factors, initial encounter
CPT/HCPCS: 99283

== ENCOUNTER → 2019-08-25 | Outpatient (CLI) | payer MEDICARE ==
--- NOTE | 2019-08-25 15:41 | BD ---
EXAMINATION TYPE: Axial Bone Density DATE OF EXAM: 08/25/2019 COMPARISON: NONE CLINICAL HISTORY: Z 78.0 Height: 63 IN Weight: 138 LBS RISK FACTORS HISTORY OF: Family History of Osteoporosis: YES SISTER Active: YES Diet low in dairy products/other sources of calcium: YES Postmenopausal woman: AGE 64 Take estrogen and/or progesterone medications: NOT NOW How long: AGE 62-67 MEDICATIONS: Thyroid Medications: YES Which medication: Synthroid How Lon+ YEARS Additional Medications: SYNTHROID, BLOOD THINNERS, PLAVIX, DIGOXIN, SLEEPING PILL, Additional History: EXAM MEASUREMENTS: Bone mineral densitometry was performed using the [employer] System. Bone mineral density as measured about the Lumbar spine is: ----- L1-L4(G/cm2): 1.014 T Score Values are as follows: ----- L2: -1.9 ----- L3: -1.5 ----- L4: -1.0 ----- L1-L4: -1.4 Bone mineral density BASELINE Bone mineral density about the R hip (g/cm2): 0.728 Bone mineral density about the L hip (g/cm2): 0.688 T Score values are as follows: -----R Neck: -2.2 -----L Neck: -2.5 -----R Total: -1.9 -----L Total: -2.1 Bone mineral density BASELINE IMPRESSION: Osteopenia (T Score between -2.5 and -1). Values approach criteria for osteoporosis. There is slightly increased risk of fracture and the patient may be considered for treatment. Re-Screen 2-5 years. NOTE: T-SCORE=SD OF THE YOUNG ADULT MEAN.
--- NOTE | 2019-08-26 10:34 | MM ---
Reason for exam: screening (asymptomatic). Last mammogram was performed 9 years and 1 month ago. History: Patient is postmenopausal. Family history of breast cancer in sister. Benign excisional biopsy. Physical Findings: A clinical breast exam by your physician is recommended on an annual basis and results should be correlated with mammographic findings. MG 3D Screening Mammo W/Cad Bilateral CC and MLO view(s) were taken. Prior study comparison: July 18, 2010, mammogram, performed at [facility]. The breast tissue is heterogeneously dense. This may lower the sensitivity of mammography. There are benign appearing round vascular calcifications bilaterally. There is no discrete abnormality. ASSESSMENT: Benign, BI-RAD 2 RECOMMENDATION: Routine screening mammogram of both breasts in 1 year.
== END | disposition home or self-care (01) ==
LOC: RADMAMWWP 14:47
PROVIDERS: ATTEND Family Medicine
DX: Z12.31 Encounter for screening mammogram for malignant neoplasm of breast (principal); M85.80 Other specified disorders of bone density and structure, unspecified site; Z78.0 Asymptomatic menopausal state
CPT/HCPCS: 77063; 77067; 77080

== ENCOUNTER 2019-09-14 16:55 | Emergency (ER) | payer MEDICARE ==
[2019-09-14] MEDS ORDERED: HYDROcodone/APAP 5-325MG 1 EACH TAB PO STA (17:32)
--- NOTE | 2019-09-14 17:35 | ED ---
General Adult HPI - General Chief complaint: Head Injury Stated complaint: fall; hit head; on blood thinners Time Seen by Provider: 09/14/19 17:07 Source: patient Mode of arrival: wheelchair Limitations: no limitations - History of Present Illness Initial comments: Dictation was produced using [employer] dictation software. please excuse any grammatical, word or spelling errors. Chief Complaint: 79-year-old female presents after fall. History of Present Illness: 79-year-old female she presents after fall. Patient was carrying a turkey in 1 hand and something like a broom in her other hand when she tripped over some gravel. She fell forward striking her face after landing on her knees. She states the incident happened approximately 30 minutes prior to arrival. Patient complains of bilateral anterior knee pain. She also has patient pain and neck pain. Denies any loss of consciousness. Patient reports that she takes Pradaxa for history of strokes. The ROS documented in this emergency department record has been reviewed and confirmed by me. Those systems with pertinent positive or negative responses have been documented in the HPI. All other systems are other negative and/or noncontributory. PHYSICAL EXAM: General Impression: Alert and oriented x3, not in acute distress HEENT: Superficial abrasions to the anterior central forehead and bridge of the nose. No septal hematoma., extra-ocular movements intact, pupils equal and reactive to light bilaterally, mucous membranes moist. Cardiovascular: Heart regular rate and rhythm, S1&S2 audible, no murmurs, rubs or gallops Chest: Lungs clear to auscultation bilaterally, no rhonchi, no wheeze, no rales Abdomen: Bowel sounds present, abdomen soft, non-tender, non-distended, no organomegaly Musculoskeletal: Pulses present and equal in all extremities, no peripheral edema, all joints ranged adequately and without medications. Motor: no focal deficits noted Neurological: CN II-XII grossly intact, no focal motor or sensory deficits noted Skin: Intact with no visualized rashes Psych: Normal affect and mood ED course: 79-year-old female presents after fall. Vital signs upon arrival are within acceptable limits.Computed tomography scan of the head and C-spine and face was unremarkable. X-rays of bilateral knees, pelvis and chest x-ray is unr emarkable. Laboratory evaluation unremarkable. Patient clear for discharge. Return precautions discussed. All questions answered. She agreeable to disposition. EKG interpretation: Ventricular rate 71, H fibrillation, care is 86, QTC 432. No SD prolongation, no QTC prolongation, no ST or T-wave changes noted. Overall, this EKG is unremarkable - Related Data Home Medications Medication Instructions Recorded Confirmed ALPRAZolam [Xanax] 0.25 mg PO TID PRN 03/18/15 06/18/18 Aspirin 81 mg PO DAILY 03/18/15 06/18/18 Dabigatran [Pradaxa] 150 mg PO BID 03/18/15 06/18/18 Digoxin [Lanoxin] 125 mcg PO DAILY 03/18/15 06/18/18 Multivitamins, Thera [Multivitamin 1 each PO DAILY@1200 03/18/15 06/18/18 (formulary)] Pravastatin Sodium [Pravachol] 20 mg PO DAILY 03/18/15 06/18/18 Temazepam [Restoril] 30 mg PO HS PRN 03/18/15 06/18/18 Furosemide [Lasix] 20 mg PO DAILY 05/20/18 06/18/18 Levothyroxine Sodium [Synthroid] 175 mcg PO DAILY 05/20/18 06/18/18 Metoprolol Tartrate [Lopressor] 12.5 mg PO BID 05/20/18 06/18/18 Topiramate 50 mg PO DAILY 05/20/18 06/18/18 Bisacodyl [Dulcolax] 10 mg PO HS 06/17/18 06/18/18 Citalopram Hydrobromide 40 mg PO DAILY 06/17/18 06/18/18 [Citalopram HBr] Previous Rx's Medication Instructions Recorded Omeprazole [PriLOSEC] 40 mg PO AC-BRKFST #14 capsule. 06/18/18 traMADol HCL [Ultram] 50 mg PO Q4HR PRN 3 Days #18 tab 06/18/18 Allergies Allergy/AdvReac Type Severity Reaction Status Date / Time morphine AdvReac Nausea Verified 09/14/19 17:06 Review of Systems ROS Statement: Those systems with pertinent positive or pertinent negative responses have been documented in the HPI. ROS Other: All systems not noted in ROS Statement are negative. Past Medical History Past Medical History: Atrial Fibrillation, CVA/TIA, Hypertension Additional Past Medical History / Comment(s): Mitral Regurgitation. Vlave replacement 3 years ago. 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 Patient states she was having migraine headaches and was told to see a neurologist, it was then he found the TIAs. 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 Past Anesthesia/Blood Transfusion Reactions: No Reported Reaction Past Psychological History: Depression Smoking Status: Former smoker Past Alcohol Use History: None Reported Past Drug Use History: None Reported - Past Family History Mother Family Medical History: Cancer Additional Family Medical History / Comment(s): Partial colon removed due to cancer, migraines, allergies. Sister(s) Family Medical History: Cancer Additional Family Medical History / Comment(s): Sister Lise: lymphoma, past smoker, breast cysts that she had fluid removed. General Exam Limitations: no limitations Course Vital Signs 09/14/19 17:04 Temperature 97.9 F Pulse Rate 71 Respiratory 18 Rate Blood Pressure 128/72 O2 Sat by Pulse 100 Oximetry Medical Decision Making - Lab Data Result diagrams: 09/14/19 17:45 09/14/19 17:45 Lab Results 09/14/19 09/14/19 09/14/19 Range/Units 17:45 17:45 17:45 WBC 3.4 L (3.8-10.6) k/uL RBC 3.79 L (3.80-5.40) m/uL Hgb 9.9 L (11.4-16.0) gm/dL Hct 31.6 L (34.0-46.0) % MCV 83.3 (80.0-100.0) fL MCH 26.1 (25.0-35.0) pg MCHC 31.3 (31.0-37.0) g/dL RDW 14.8 (11.5-15.5) % Plt Count 246 (150-450) k/uL Neutrophils % 62 % Lymphocytes % 20 % Monocytes % 10 % Eosinophils % 3 % Basophils % 1 % Neutrophils # 2.1 (1.3-7.7) k/uL Lymphocytes # 0.7 L (1.0-4.8) k/uL Monocytes # 0.3 (0-1.0) k/uL Eosinophils # 0.1 (0-0.7) k/uL Basophils # 0.0 (0-0.2) k/uL Hypochromasia Slight PT 10.4 (9.0-12.0) sec INR 1.0 (<1.2) APTT 30.3 H (22.0-30.0) sec Sodium 139 (137-145) mmol/L Potassium 4.3 (3.5-5.1) mmol/L Chloride 108 H (98-107) mmol/L Carbon Dioxide 26 (22-30) mmol/L Anion Gap 5 mmol/L BUN 16 (7-17) mg/dL Creatinine 0.75 (0.52-1.04) mg/dL Est GFR (CKD-EPI)AfAm 89 (>60 ml/min/1.73 sqM) Est GFR (CKD-EPI)NonAf 77 (>60 ml/min/1.73 sqM) Glucose 109 H (74-99) mg/dL Calcium 8.4 (8.4-10.2) mg/dL Disposition Clinical Impression: Fall Disposition: HOME SELF-CARE Condition: Good Instructions (If sedation given, give patient instructions): Fall Prevention (ED) Is patient prescribed a controlled substance at d/c from ED?: No Referrals: Molly Delgadillo MD [Primary Care Provider] - 1-2 days Time of Disposition: 19:28
[2019-09-14 18:05] LABS: Basophils % (A) 1 %; Eosinophils # (A) 0.1 k/uL (0-0.7); Eosinophils % (A) 3 %; HCT 31.6 % (34.0-46.0); HGB 9.9 gm/dL (11.4-16.0); Hypochromasia Slight; Lymphocytes # (A) 0.7 k/uL (1.0-4.8); Lymphocytes % (A) 20 %; MCH 26.1 pg (25.0-35.0); MCHC 31.3 g/dL (31.0-37.0); MCV 83.3 fL (80.0-100.0); Mean Platelet Volume 6.8; Monocytes # (A) 0.3 k/uL (0-1.0); Monocytes % (A) 10 %; Neutrophils # (A) 2.1 k/uL (1.3-7.7); Neutrophils % (A) 62 %; Platelet Count 246 k/uL (150-450); RBC 3.79 m/uL (3.80-5.40); RDW 14.8 % (11.5-15.5); WBC 3.4 k/uL (3.8-10.6)
[2019-09-14 18:16] LABS: Calcium 8.4 mg/dL (8.4-10.2); Potassium 4.3 mmol/L (3.5-5.1)
[2019-09-14 18:17] LABS: Partial Thromboplastin Time 30.3 sec (22.0-30.0); Prothrombin Time 10.4 sec (9.0-12.0)
--- NOTE | 2019-09-14 19:03 | CT ---
EXAMINATION TYPE: CT brain elsie vaughn con DATE OF EXAM: 09/14/2019 COMPARISON: HISTORY: Pt trip and fall, landing on face. Trauma and pain CT DLP: 1111.3 mGycm Automated exposure control for dose reduction was used. TECHNIQUE: CT scan of the head and cervical spine are performed without contrast. FINDINGS: There is no acute intracranial hemorrhage, mass effect, or midline shift identified. The ventricles and sulci are within normal limits in size. The globes are intact and the visualized sin uses are clear. Some mild inflammatory changes are noted within the left mastoid air cells. Cerebral vascular calcifications are noted. Cervical spine is visualized in its entirety from C1 through upper thoracic levels and demonstrates s atisfactory alignment without evidence of acute fracture or dislocation. Prevertebral soft tissue ap pears within normal limits. The C1-C2 articulation is unremarkable. There is multilevel spondylosis. Loss of disc height is present at the intervertebral levels. IMPRESSION: 1. There is no acute fracture or dislocation evident in the cervical spine. 2. No acute intracranial hemorrhage, mass effect, or midline shift is seen.
--- NOTE | 2019-09-14 19:05 | CT ---
EXAMINATION TYPE: CT facial bones wo con DATE OF EXAM: 09/14/2019 COMPARISON: None HISTORY: Pt trip and fall, landing on face. Trauma and pain CT DLP: 1111.3 mGycm Automated exposure control for dose reduction was used. TECHNIQUE: CT scan of the sinuses is performed without contrast, axial images are obtained, coronal r eformatted images are also reviewed. FINDINGS: The paranasal sinuses including the frontal, ethmoid, sphenoid, and maxillary sinuses bila terally are well-aerated without abnormal opacification, probable mucus retention cyst present in the antrum of the left maxillary sinus. The ostiomeatal complex is patent bilaterally on the coronal im ages. Visualized portion of mastoid air cells show no abnormal opacification. The globes are intact bilate rally. IMPRESSION: The sinuses are clear and the ostiomeatal complex is patent bilaterally. No evident frac ture.
--- NOTE | 2019-09-14 19:07 | XR ---
EXAMINATION TYPE: XR chest 2V DATE OF EXAM: 09/14/2019 COMPARISON: Prior chest x-ray 05/20/2018 HISTORY: Weakness, trauma TECHNIQUE: Frontal and lateral views of the chest are obtained on 3 images. FINDINGS: Patient is post median sternotomy and cardiac valve replacement change. There is no focal air space opacity, pleural effusion, or pneumothorax seen. The cardiac silhouette size is stable and enlarged, there are prominent lung volume suggesting underlying COPD. The osseous structures are i ntact. Postop changes are noted in the upper abdomen. IMPRESSION: No acute cardiopulmonary process.
--- NOTE | 2019-09-14 19:09 | XR ---
AP pelvis HISTORY: Trauma and pain Single frontal view the pelvis There is arthropathy noted in the right greater than left hip. Mild marginal spurring and joint space loss present in the hips bilaterally. There are calcifications present in the pelvis likely represen ting phleboliths. Alignment is maintained. IMPRESSION: No fracture or dislocation.
--- NOTE | 2019-09-14 19:11 | XR ---
Bilateral knees HISTORY: Bilateral pain, trauma 4 views of each knee submitted on a total of 8 images Bone mineralization is reduced which may limit sensitivity. Joint space loss is present in the medial compartments with marginal spurring. Alignment is maintained. Suspect some chondrocalcinosis on the left. No evident joint effusion. IMPRESSION: No acute fracture or dislocation.
[2019-09-14 19:48] VITALS: BP 127/88; PULSE 57; RESP 16; TEMP 98
== END 2019-09-14 19:49 | disposition home or self-care (01) ==
LOC: EC 16:55
DX: S00.81XA Abrasion of other part of head, initial encounter (principal); S00.31XA Abrasion of nose, initial encounter; M54.2 Cervicalgia; M25.561 Pain in right knee; M25.562 Pain in left knee; I48.91 Unspecified atrial fibrillation; I10 Essential (primary) hypertension; F32.9 Major depressive disorder, single episode, unspecified; Z87.891 Personal history of nicotine dependence; Z88.5 Allergy status to narcotic agent; Z79.01 Long term (current) use of anticoagulants; Z79.82 Long term (current) use of aspirin; Z79.890 Hormone replacement therapy; Z79.899 Other long term (current) drug therapy; Z86.73 Personal history of transient ischemic attack (TIA), and cerebral infarction without residual deficits; Z86.69 Personal history of other diseases of the nervous system and sense organs; Z86.79 Personal history of other diseases of the circulatory system; Z95.2 Presence of prosthetic heart valve; W01.10XA Fall on same level from slipping, tripping and stumbling with subsequent striking against unspecified object, initial encounter; Y93.01 Activity, walking, marching and hiking
CPT/HCPCS: 36415; 70450; 70486; 71046; 72125; 72170; 80048; 85025; 85610; 85730; 93005; 99284

== ENCOUNTER 2020-12-09 16:23 | Inpatient (IN) | payer MEDICARE ==
--- NOTE | 2020-12-09 16:38 | ED ---
Neuro HPI - General Chief Complaint: Neuro Symptoms/Deficit Stated Complaint: TIA Time Seen by Provider: 12/09/20 16:25 Source: patient, EMS Mode of arrival: EMS Limitations: language barrier - History of Present Illness Is the patient presenting with stroke symptoms?: Yes Initial Comments: Patient is a 80-year-old female with past medical history of CVA, A. fib, valve repair who presents to the emergency room with possible stroke like symptoms. Patient reports that around 3 PM she was crocheting. She had sudden onset of v isual disturbance and weakness. States that both her legs gave out on her and she fell into a chair. Has been witnessed this and states that she was altered for approximately 45 minutes before she to baseline. Patient does have this history of CVA however has no prolonged deficits. She called her neurologist and her primary care who recommended that she come in to the emergency room evaluation. Reports that she had no lateralizing symptoms. No present symptoms at this time except for a mild occipital headache. No speech difficulties. Patient does have a history of A. fib and valve repair for which she does take pradaxa. No missed doses. Denies any chest pain or shortness of breath. No fevers or chills. No other alleviating, Perceptin or modifying factors - Related Data Home Medications: Home Medications Medication Instructions Recorded Confirmed ALPRAZolam [Xanax] 0.25 mg PO DAILY PRN 03/18/15 12/09/20 Dabigatran [Pradaxa] 150 mg PO BID 03/18/15 12/09/20 Multivitamins, Thera [Multivitamin 1 each PO DAILY@1200 03/18/15 12/09/20 (formulary)] Furosemide [Lasix] 20 mg PO BID 05/20/18 12/09/20 Metoprolol Tartrate [Lopressor] 25 mg PO BID 05/20/18 12/09/20 Citalopram Hydrobromide 40 mg PO DAILY 06/17/18 12/09/20 [Citalopram HBr] Alendronate Sodium [Fosamax] 70 mg PO MO 12/09/20 12/09/20 Cholecalciferol [Vitamin D3 (25 25 mcg PO DAILY 12/09/20 12/09/20 Mcg = 1000 Iu)] Clopidogrel [Plavix] 75 mg PO DAILY 12/09/20 12/09/20 Levothyroxine Sodium [Synthroid] 150 mcg PO DAILY 12/09/20 12/09/20 Temazepam [Restoril] 30 mg PO HS PRN 12/09/20 12/09/20 lisinopriL [Zestril] 10 mg PO DAILY 12/09/20 12/09/20 Previous Rx's Medication Instructions Recorded Atorvastatin [Lipitor] 40 mg PO HS #30 tab 12/12/20 Allergies/Adverse Reactions: Allergies Allergy/AdvReac Type Severity Reaction Status Date / Time morphine AdvReac Nausea Verified 12/09/20 18:59 Review of Systems ROS Statement: Those systems with pertinent positive or pertinent negative responses have been documented in the HPI. ROS Other: All systems not noted in ROS Statement are negative. General Exam Limitations: language barrier General appearance: alert, in no apparent distress Head exam: Present: atraumatic, normocephalic, normal inspection Eye exam: Present: normal appearance, PERRL, EOMI. Absent: scleral icterus, conjunctival injection, periorbital swelling ENT exam: Present: normal exam, mucous membranes moist Neck exam: Present: normal inspection. Absent: tenderness, meningismus, lymphadenopathy Respiratory exam: Present: normal lung sounds bilaterally. Absent: respiratory distress, wheezes, rales, rhonchi, stridor Cardiovascular Exam: Present: regular rate, normal rhythm, normal heart sounds. Absent: systolic murmur, diastolic murmur, rubs, gallop, clicks GI/Abdominal exam: Present: soft, normal bowel sounds. Absent: distended, tenderness, guarding, rebound, rigid Extremities exam: Present: normal inspection, full ROM, normal capillary refill. Absent: tenderness, pedal edema, joint swelling, calf tenderness Back exam: Present: normal inspection Neurological exam: Present: alert, oriented X3, CN II-XII intact Psychiatric exam: Present: normal affect, normal mood Skin exam: Present: warm, dry, intact, normal color. Absent: rash Stroke MDM - Lab Data Result diagrams: 12/12/20 06:33 12/12/20 06:33 Lab Results 12/09/20 12/09/20 12/09/20 Range/Units 16:45 16:45 16:45 WBC 3.2 L (3.8-10.6) k/uL RBC 3.96 (3.80-5.40) m/uL Hgb 10.1 L (11.4-16.0) gm/dL Hct 31.7 L (34.0-46.0) % MCV 80.2 (80.0-100.0) fL MCH 25.4 (25.0-35.0) pg MCHC 31.7 (31.0-37.0) g/dL RDW 15.1 (11.5-15.5) % Plt Count 244 (150-450) k/uL MPV 7.0 Immature Gran % (Auto) % Absolute Nucleated RBC (0.00-0.00) X 10*3/uL Neutrophils % 49 % Lymphocytes % 35 % Monocytes % 8 % Eosinophils % 4 % Basophils % 2 % Immature Gran # (0.00-0.04) X 10*3/uL Neutrophils # 1.6 (1.3-7.7) k/uL Lymphocytes # 1.1 (1.0-4.8) k/uL Monocytes # 0.2 (0-1.0) k/uL Eosinophils # 0.1 (0-0.7) k/uL Basophils # 0.1 (0-0.2) k/uL NRBC/100 WBC Diff (0.0-0.0) /100 WBCS Hypochromasia Slight PT 10.7 (9.0-12.0) sec INR 1.0 (<1.2) APTT 27.5 (22.0-30.0) sec Sodium 138 (137-145) mmol/L Potassium 4.6 (3.5-5.1) mmol/L Chloride 105 (98-107) mmol/L Carbon Dioxide 27 (22-30) mmol/L Anion Gap 6 mmol/L BUN 14 (7-17) mg/dL Creatinine 0.83 (0.52-1.04) mg/dL Est GFR (CKD-EPI)AfAm 79 (>60 ml/min/1.73 sqM) Est GFR (CKD-EPI)NonAf 68 (>60 ml/min/1.73 sqM) BUN/Creatinine Ratio (12.00-20.00) Ratio Glucose 87 (74-99) mg/dL Calcium 8.8 (8.4-10.2) mg/dL Total Bilirubin 0.5 (0.2-1.3) mg/dL AST 30 (14-36) U/L ALT 14 (4-34) U/L Alkaline Phosphatase 52 (38-126) U/L Troponin I (0.000-0.034) ng/mL Total Protein 6.8 (6.3-8.2) g/dL Albumin 4.1 (3.5-5.0) g/dL TSH (0.350-5.500) uIU/mL Urine Color Urine Appearance (Clear) Urine pH (5.0-8.0) Ur Specific Prospect (1.001-1.035) Urine Protein (Negative) Urine Glucose (UA) (Negative) Urine Ketones (Negative) Urine Blood (Negative) Urine Nitrite (Negative) Urine Bilirubin (Negative) Urine Urobilinogen (<2.0) mg/dL Ur Leukocyte Esterase (Negative) Coronavirus (PCR) (Not Detectd) 12/09/20 12/09/20 12/09/20 Range/Units 16:45 17:51 17:56 WBC (3.8-10.6) k/uL RBC (3.80-5.40) m/uL Hgb (11.4-16.0) gm/dL Hct (34.0-46.0) % MCV (80.0-100.0) fL MCH (25.0-35.0) pg MCHC (31.0-37.0) g/dL RDW (11.5-15.5) % Plt Count (150-450) k/uL MPV Immature Gran % (Auto) % Absolute Nucleated RBC (0.00-0.00) X 10*3/uL Neutrophils % % Lymphocytes % % Monocytes % % Eosinophils % % Basophils % % Immature Gran # (0.00-0.04) X 10*3/uL Neutrophils # (1.3-7.7) k/uL Lymphocytes # (1.0-4.8) k/uL Monocytes # (0-1.0) k/uL Eosinophils # (0-0.7) k/uL Basophils # (0-0.2) k/uL NRBC/100 WBC Diff (0.0-0.0) /100 WBCS Hypochromasia PT (9.0-12.0) sec INR (<1.2) APTT (22.0-30.0) sec Sodium (137-145) mmol/L Potassium (3.5-5.1) mmol/L Chloride (98-107) mmol/L Carbon Dioxide (22-30) mmol/L Anion Gap mmol/L BUN (7-17) mg/dL Creatinine (0.52-1.04) mg/dL Est GFR (CKD-EPI)AfAm (>60 ml/min/1.73 sqM) Est GFR (CKD-EPI)NonAf (>60 ml/min/1.73 sqM) BUN/Creatinine Ratio (12.00-20.00) Ratio Glucose (74-99) mg/dL Calcium (8.4-10.2) mg/dL Total Bilirubin (0.2-1.3) mg/dL AST (14-36) U/L ALT (4-34) U/L Alkaline Phosphatase (38-126) U/L Troponin I <0.012 (0.000-0.034) ng/mL Total Protein (6.3-8.2) g/dL Albumin (3.5-5.0) g/dL TSH (0.350-5.500) uIU/mL Urine Color Light Yellow Urine Appearance Clear (Clear) Urine pH 7.0 (5.0-8.0) Ur Specific Prospect 1.004 (1.001-1.035) Urine Protein Negative (Negative) Urine Glucose (UA) Negative (Negative) Urine Ketones Negative (Negative) Urine Blood Negative (Negative) Urine Nitrite Negative (Negative) Urine Bilirubin Negative (Negative) Urine Urobilinogen <2.0 (<2.0) mg/dL Ur Leukocyte Esterase Negative (Negative) Coronavirus (PCR) Not Detected (Not Detectd) 12/10/20 12/10/20 12/10/20 Range/Units 08:10 08:10 08:10 WBC 2.74 L (3.8-10.6) k/uL RBC 3.68 L (3.80-5.40) m/uL Hgb 9.4 L (11.4-16.0) gm/dL Hct 31.0 L (34.0-46.0) % MCV 84.2 (80.0-100.0) fL MCH 25.5 L (25.0-35.0) pg MCHC 30.3 L (31.0-37.0) g/dL RDW 15.8 H (11.5-15.5) % Plt Count 244 (150-450) k/uL MPV 10.3 Immature Gran % (Auto) 0 % Absolute Nucleated RBC 0 (0.00-0.00) X 10*3/uL Neutrophils % 48.6 % Lymphocytes % 32.1 % Monocytes % 13.1 % Eosinophils % 4.7 % Basophils % 1.5 % Immature Gran # 0 (0.00-0.04) X 10*3/uL Neutrophils # 1.33 L (1.3-7.7) k/uL Lymphocytes # 0.88 L (1.0-4.8) k/uL Monocytes # 0.36 (0-1.0) k/uL Eosinophils # 0.13 (0-0.7) k/uL Basophils # 0.04 (0-0.2) k/uL NRBC/100 WBC Diff 0 (0.0-0.0) /100 WBCS Hypochromasia PT (9.0-12.0) sec INR (<1.2) APTT (22.0-30.0) sec Sodium 142 (137-145) mmol/L Potassium 4.2 (3.5-5.1) mmol/L Chloride 109 (98-107) mmol/L Carbon Dioxide 28.6 (22-30) mmol/L Anion Gap 4.40 mmol/L BUN 16.0 (7-17) mg/dL Creatinine 1.0 (0.52-1.04) mg/dL Est GFR (CKD-EPI)AfAm 62.5 (>60 ml/min/1.73 sqM) Est GFR (CKD-EPI)NonAf 53.9 L (>60 ml/min/1.73 sqM) BUN/Creatinine Ratio 16.00 (12.00-20.00) Ratio Glucose 81 (74-99) mg/dL Calcium 8.5 L (8.4-10.2) mg/dL Total Bilirubin (0.2-1.3) mg/dL AST (14-36) U/L ALT (4-34) U/L Alkaline Phosphatase (38-126) U/L Troponin I (0.000-0.034) ng/mL Total Protein (6.3-8.2) g/dL Albumin (3.5-5.0) g/dL TSH 4.900 (0.350-5.500) uIU/mL Urine Color Urine Appearance (Clear) Urine pH (5.0-8.0) Ur Specific Prospect (1.001-1.035) Urine Protein (Negative) Urine Glucose (UA) (Negative) Urine Ketones (Negative) Urine Blood (Negative) Urine Nitrite (Negative) Urine Bilirubin (Negative) Urine Urobilinogen (<2.0) mg/dL Ur Leukocyte Esterase (Negative) Coronavirus (PCR) (Not Detectd) 12/11/20 12/11/20 Range/Units 06:27 06:27 WBC 3.05 L (3.8-10.6) k/uL RBC 3.88 L (3.80-5.40) m/uL Hgb 9.9 L (11.4-16.0) gm/dL Hct 32.1 L (34.0-46.0) % MCV 82.7 (80.0-100.0) fL MCH 25.5 L (25.0-35.0) pg MCHC 30.8 L (31.0-37.0) g/dL RDW 15.7 H (11.5-15.5) % Plt Count 244 (150-450) k/uL MPV 10.4 Immature Gran % (Auto) 0.3 % Absolute Nucleated RBC 0 (0.00-0.00) X 10*3/uL Neutrophils % 46.6 % Lymphocytes % 35.1 % Monocytes % 12.8 % Eosinophils % 3.9 % Basophils % 1.3 % Immature Gran # 0.01 (0.00-0.04) X 10*3/uL Neutrophils # 1.42 L (1.3-7.7) k/uL Lymphocytes # 1.07 (1.0-4.8) k/uL Monocytes # 0.39 (0-1.0) k/uL Eosinophils # 0.12 (0-0.7) k/uL Basophils # 0.04 (0-0.2) k/uL NRBC/100 WBC Diff 0 (0.0-0.0) /100 WBCS Hypochromasia PT (9.0-12.0) sec INR (<1.2) APTT (22.0-30.0) sec Sodium 140 (137-145) mmol/L Potassium 4.4 (3.5-5.1) mmol/L Chloride 106 (98-107) mmol/L Carbon Dioxide 27.6 (22-30) mmol/L Anion Gap 6.40 mmol/L BUN 19.0 (7-17) mg/dL Creatinine 0.9 (0.52-1.04) mg/dL Est GFR (CKD-EPI)AfAm 71.0 (>60 ml/min/1.73 sqM) Est GFR (CKD-EPI)NonAf 61.2 (>60 ml/min/1.73 sqM) BUN/Creatinine Ratio 21.11 H (12.00-20.00) Ratio Glucose 82 (74-99) mg/dL Calcium 8.7 (8.4-10.2) mg/dL Total Bilirubin (0.2-1.3) mg/dL AST (14-36) U/L ALT (4-34) U/L Alkaline Phosphatase (38-126) U/L Troponin I (0.000-0.034) ng/mL Total Protein (6.3-8.2) g/dL Albumin (3.5-5.0) g/dL TSH (0.350-5.500) uIU/mL Urine Color Urine Appearance (Clear) Urine pH (5.0-8.0) Ur Specific Prospect (1.001-1.035) Urine Protein (Negative) Urine Glucose (UA) (Negative) Urine Ketones (Negative) Urine Blood (Negative) Urine Nitrite (Negative) Urine Bilirubin (Negative) Urine Urobilinogen (<2.0) mg/dL Ur Leukocyte Esterase (Negative) Coronavirus (PCR) (Not Detectd) - Medical Decision Making Upon arrival patient is placed into room 8. A thorough history and physical exam was performed. 12-lead EKG was performed. NIH demonstrates negative stroke scale. I will treat studies are conducted and the patient went for CT of her brain. Did speak with the radiologist at 6:58 pm who states that the CT is negative. I spoke with Dr. Rodriguez who agreed to admit the patient. Patient agreed to the treatment plan. Patient was then taken to the floor in stable condition 12/09/20 21:11 EKG demonstrates A. fib with a rate of 101. QRS 88. QTC of 430. No acute ST segment elevations or depressions Past Medical History Past Medical History: Atrial Fibrillation, CVA/TIA, Hypertension Additional Past Medical History / Comment(s): Mitral Regurgitation. Vlave replacement 3 years ago. 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 Patient states she was having migraine headaches and was told to see a neurologist, it was then he found the TIAs. 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 Past Anesthesia/Blood Transfusion Reactions: No Reported Reaction Past Psychological History: Depression Smoking Status: Former smoker Past Alcohol Use History: Rare Past Drug Use History: None Reported - Past Family History Mother Family Medical History: Cancer Additional Family Medical History / Comment(s): Partial colon removed due to cancer, migraines, allergies. Sister(s) Family Medical History: Cancer Additional Family Medical History / Comment(s): Sister Lise: lymphoma, past smoker, breast cysts that she had fluid removed. Course Vital Signs 12/09/20 12/09/20 16:30 18:39 Temperature 98.3 F Pulse Rate 74 78 Respiratory 16 16 Rate Blood Pressure 140/95 108/68 O2 Sat by Pulse 98 98 Oximetry Disposition Clinical Impression: H/O: CVA (cerebrovascular accident), Encephalopathy acute Disposition: ADMITTED IP TO THIS HOSP Condition: Stable Is patient prescribed a controlled substance at d/c from ED?: No Decision to Admit Reason: Admit from EC Decision Date: 12/09/20 Decision Time: 18:44
[2020-12-09 16:53] LABS: Basophils # (A) 0.1 k/uL (0-0.2); Basophils % (A) 2 %; Eosinophils # (A) 0.1 k/uL (0-0.7); Eosinophils % (A) 4 %; HCT 31.7 % (34.0-46.0); HGB 10.1 gm/dL (11.4-16.0); Hypochromasia Slight; Lymphocytes # (A) 1.1 k/uL (1.0-4.8); Lymphocytes % (A) 35 %; MCH 25.4 pg (25.0-35.0); MCHC 31.7 g/dL (31.0-37.0); MCV 80.2 fL (80.0-100.0); Monocytes # (A) 0.2 k/uL (0-1.0); Monocytes % (A) 8 %; Neutrophils # (A) 1.6 k/uL (1.3-7.7); Neutrophils % (A) 49 %; Platelet Count 244 k/uL (150-450); RBC 3.96 m/uL (3.80-5.40); RDW 15.1 % (11.5-15.5); WBC 3.2 k/uL (3.8-10.6)
[2020-12-09 17:03] LABS: Partial Thromboplastin Time 27.5 sec (22.0-30.0); Prothrombin Time 10.7 sec (9.0-12.0)
[2020-12-09 17:19] LABS: Albumin 4.1 g/dL (3.5-5.0); Calcium 8.8 mg/dL (8.4-10.2); Potassium 4.6 mmol/L (3.5-5.1); Total Bilirubin 0.5 mg/dL (0.2-1.3); Total Protein 6.8 g/dL (6.3-8.2)
--- NOTE | 2020-12-09 17:21 | XR ---
EXAMINATION TYPE: XR chest 2V DATE OF EXAM: 12/09/2020 COMPARISON: 09/14/2019 TECHNIQUE: PA and lateral views submitted. HISTORY: Altered mental status FINDINGS: The lungs are clear and there is no pneumothorax, pleural effusion, or focal pneumonia. Heart is pr ominent there is postoperative change. Hyperinflation suggests COPD. Degenerative changes of the spin e. IMPRESSION: 1. Cardiomegaly correlate for COPD.
[2020-12-09] MEDS ORDERED: ALPRAZolam 0.25 MG TAB PO PRN (17:42)
[2020-12-09 18:03] LABS: Appearance,Urine Clear (Clear); Bilirubin,Urine Negative (Negative); Blood,Urine Negative (Negative); Color,Urine Light Yellow; Glucose,Urine (UA) Negative (Negative); Ketones,Urine Negative (Negative); Leukocyte Esterase,Urine Negative (Negative); Nitrite,Urine Negative (Negative); Protein,Urine Negative (Negative); Specific Gravity,Urine 1.004 (1.001-1.035); Urobilinogen,Urine <2.0 mg/dL (<2.0)
[2020-12-09] MEDS ORDERED: ACETAMINOPHEN TAB 325 MG TAB PO STA (18:13)
[2020-12-09] MEDS ORDERED: NALOXONE 0.4 MG/ML 1 ML VIAL IV PRN (18:45)
--- NOTE | 2020-12-09 18:57 | HP ---
HISTORY AND PHYSICAL DATE OF SERVICE: 12/09/2020 CHIEF COMPLAINTS: Weakness and change in mental status. HISTORY OF PRESENT ILLNESS: This 80-year-old woman with a past medical history of atrial fibrillation, CVA, TIA, hypertension, history of mitral regurgitation history of valve replacement about 3 years ago, previous 9 TIAs, history of bariatric surgery, cholecystomy, being followed by Dr. Brady Rand in the outpatient setting, was apparently walking today at home and the patient apparently felt some weakness and almost felt like falling down. The patient was unable to remember. Because of two similar episodes, the patient came to [facility] and was admitted for further evaluation and treatment. The patient did have significant weakness on the left side which was possibly thought to be secondary to TIA, from which the patient completely recovered previously. There is no history of any fever, rigor or chills. No history of headache, loss of consciousness, seizures at this time. The patient was found to be in atrial fibrillation. PAST MEDICAL HISTORY: History of atrial fibrillation, CVA, TIA, hypertension, history of mitral valve regurgitation, valve replacement. HOME MEDICATIONS: Home medications are yet to be confirmed: Ultram, Dulcolax, Topamax, Restoril, Pravachol, Prilosec, multivitamins, Lopressor, Synthroid, Lasix, Lanoxin, Pradaxa, Celexa, aspirin, Xanax. ALLERGIES: MORPHINE. FAMILY HISTORY: History of colon cancer in the family. SOCIAL HISTORY: Previous history of smoking. No current smoking or alcohol intake. REVIEW OF SYSTEMS: ENT: Diminished hearing. Diminished vision. CARDIOVASCULAR SYSTEM: As mentioned earlier. RESPIRATORY SYSTEM: As mentioned earlier. GI: No nausea, vomiting. : No dysuria or retention. NERVOUS SYSTEM: As mentioned earlier. ALLERGY/IMMUNOLOGY: No asthma, hayfever. MUSCULOSKELETAL: Negative. RHEUMATOLOGY: Negative. HEMATOLOGY: Negative. PSYCHIATRY: Negative. CONSTITUTIONAL: As mentioned earlier. PHYSICAL EXAMINATION: Patient alert and oriented x3. Pulse 74, blood pressure 140/94, respirations 16, temperature 98.6, pulse ox 98% on room air. HEENT: Conjunctivae normal. Oral mucosa moist. NECK: No jugular venous distention. No carotid bruit. No lymph node enlargement. CARDIOVASCULAR SYSTEM: S1, S2 irregular. No murmur. No thrills. RESPIRATORY SYSTEM: Breath sounds diminished at the bases. No rhonchi. No crackles. ABDOMEN: Soft LEGS: No edema. No swelling. NERVOUS SYSTEM: Higher functions as mentioned earlier. Cranial nerves 2 through 12 grossly intact. Moves all 4 limbs. No focal deficit. LYMPHATICS: No lymph node palpable in neck, axillae or groin. SKIN: No ulcer, rash, bleeding. JOINTS: No deforming arthropathy. LABS: WBC 3.2, hemoglobin 10.1. CT of the brain is pending. ASSESSMENT: 1. Weakness; possible acute transient ischemic attack. 2. History of previous left-sided weakness and transient ischemic attack or stroke. 3. Atrial fibrillation. 4. History of hypertension. 5. Mitral valve regurgitation and valve replacement. 6. History of 9 transient ischemic attacks. 7. History of bariatric surgery. 8. Cholecystectomy. 9. History of migraine headaches. 10.History of depression. 11.Remote history of nicotine dependence. 12.Anemia, normocytic. 13.Mild leukopenia. RECOMMENDATIONS AND DISCUSSION: In this 80-year-old woman who presented with multiple complex medical issues, we will monitor the patient closely, continue the current medications, continue symptomatic treatment. We will admit the patient, observe for evidence of any TIAs with neuro checks and complete neurovascular workup. Neurology also will be consulted. Home medications will be continued once confirmed by the farm operations technical director. Otherwise, prognosis is guarded. Further recommendations to follow. Discussed with the patient. A copy of this dictation is being forwarded to Dr. Brady Rand, who is the primary physician. MMMOUSTAPHAL / JOSHN: [id number] /
--- NOTE | 2020-12-09 18:58 | CT ---
EXAMINATION TYPE: CT brain wo con DATE OF EXAM: 12/09/2020 COMPARISON: 09/14/2019 HISTORY: Weakness and fatigue. CT DLP: 1084.4 mGycm Automated exposure control for dose reduction was used. FINDINGS: Mild generalized degenerative change. Faint low-attenuation the white matter is nonspecific. Small fo carmelo areas of abnormal signal involving the basal ganglia most compatible with remote lacunar infarct. No acute hemorrhage or mass effect. No midline shift. Calvarium intact. IMPRESSION: DEGENERATIVE AND NONSPECIFIC WHITE MATTER CHANGES.
--- NOTE | 2020-12-09 20:33 | US ---
EXAMINATION TYPE: US carotid duplex BILAT DATE OF EXAM: 12/09/2020 COMPARISON: CT CLINICAL HISTORY: stroke. Stroke per order. Patient had episode of blurred vision and confusion. Hx m ultiple strokes, A-Fib, hypertension, mitral valve repair 3 years ago. Previous smoker. EXAM MEASUREMENTS: RIGHT: Peak Systolic Velocity (PSV) cm/sec ----- Right CCA: 83.8 ----- Right ICA: 78.2 ----- Right ECA: 67.7 ICA/CCA ratio: 0.9 RIGHT: End Diastole cm/sec ----- Right CCA: 18.3 ----- Right ICA: 32.8 ----- Right ECA: 10.2 LEFT: Peak Systolic Velocity (PSV) cm/sec ----- Left CCA: 66.6 ----- Left ICA: 83.9 ----- Left ECA: 90.5 ICA/CCA ratio: 1.3 LEFT: End Diastole cm/sec ----- Left CCA: 16.0 ----- Left ICA: 26.7 ----- Left ECA: 23.4 VERTEBRALS (direction of flow): Right Vertebral: Antegrade Left Vertebral: Antegrade Rhythm: Arrhythmia IMPRESSION: 1. Negative for elevated SONJA or LICA stenoses. 2. Intimal thickening seen bilaterally; with minimal plaque seen bilateral bulbs.
[2020-12-09] MEDS ORDERED: TEMAZEPAM 30 MG CAP PO PRN (20:59)
[2020-12-09] MEDS: TEMAZEPAM 15 MG CAP PO PRN (22:22)
[2020-12-09] MEDS: METOPROLOL TARTRATE 25 MG TAB PO SCH (22:23)
[2020-12-09] MEDS: DABIGATRAN 150 MG CAP PO SCH (22:23)
[2020-12-10] MEDS: PANTOPRAZOLE 40 MG TABLET PO SCH (08:07)
[2020-12-10] MEDS: DABIGATRAN 150 MG CAP PO SCH ×2 (08:07→21:58)
[2020-12-10] MEDS: METOPROLOL TARTRATE 25 MG TAB PO SCH ×2 (09:19→21:57)
--- NOTE | 2020-12-10 11:26 | P.CRDCN ---
History of Present Illness History of present illness: HISTORY OF PRESENTING ILLNESS This is a pleasant 80-year-old female past medical history significant for valvular heart disease status post mitral and tricuspid valve repair, TIA, hypertension and atrial fibrillation. She follows in the office with Dr. Mercado. We have been asked to see in consultation for atrial fibrillation. She states yesterday while she was walking across her house to sit down she started feeling confused. She then described a sensation of a "surge" in her head with associated blurred vision. She felt she was floating across the room. This lasted for 1 minute. She denies chest pain, shortness of breath, dizziness or palpitations. She states she is compliant with her anticoagulant medication and has never skipped a dose. DIAGNOSTICS EKG reveals atrial fibrillation heart rate of 101, poor R-wave progression and T-wave inversions in the inferiorly. Telemetry tracings indicate atrial fibrillation with up to 2 second pauses. Chest xray underlying COPD with hyperinflation, otherwise no acute cardiopulmonary process. CT of the brain unremarkable. Laboratory reviewed, be VC 3.2, hemoglobin 10.1, platelets 244, sodium 138, potassium 4.6, creatinine 0.83. Current cardiac medications include digoxin 62.5 g daily, Pred Ava 150 mg twice a day, Lasix 20 mg twice a day, Lopressor 25 mg twice a day, pravastatin 20 mg daily, Plavix 75 mg daily, lisinopril 10 mg daily. REVIEW OF SYSTEMS At the time of my exam: CONSTITUTIONAL: Denies fever or chills. CARDIOVASCULAR: Denies chest pain, shortness of breath, orthopnea, PND or palpitations. RESPIRATORY: Denies cough. GASTROINTESTINAL: Denies abdominal pain, diarrhea, constipation, nausea or v omiting. MUSCULOSKELETAL: Denies myalgias. NEUROLOGIC: Denies numbness, tingling, headacbe or weakness. ENDOCRINE: Denies fatigue, weight change, polydipsia or polyurina. GENITOURINARY: Denies burning, hematuria or urgency with micturation. HEMATOLOGIC: Denies history of anemia or bleeding. PHYSICAL EXAMINATION Blood pressure 104/68 heart rate 56 afebrile and maintaining oxygen saturation on room air. CONSTITUTIONAL: No apparent distress. HEENT: Head is normocephalic. Pupils are equal, round. Sclerae anicteric. Mucous membranes of the mouth are moist. No JVD. No carotid bruit. CHEST EXAMINATION: Lungs are clear to auscultation. No chest wall tenderness is noted on palpation or with deep breathing. HEART EXAMINATION: Irregular rate and rhythm. S1, S2 heard. Soft murmur at the apex, no gallops or rub. ABDOMEN: Soft, nontender. Positive bowel sounds. EXTREMITIES: 2+ peripheral pulses, no lower extremity edema and no calf tenderness. NEUROLOGIC EXAMINATION: Patient is awake, alert and oriented x3. ASSESSMENT Blurred vision Chronic persistent atrial fibrillation on pradaxa Hypertension Valvular heart disease s/p mitral and tricuspid repair TIA in the past PLAN Telemetry tracings reviewed, she is having up to 2 second pauses which is normal in afib. Unsure if there was more slowing during the time of her episode. Recommend stopping digoxin and following up with her primary bicycle designer for further outpatient heart monitoring. Echocardiogram reviewed at the bedside looks good, no evidence of cardiomyopathy or vegetation on the repaired valves. No need for GUNNER with normal CT of the brain and compliance with anti-coagulation. Check TSH. Plan discussed in detail with the patient and she verbalizes understanding. Thank you kindly for this consultation. Nurse Practitioner note has been reviewed, I agree with a documented findings and plan of care. Patient was seen and examined. Past Medical History Past Medical History: Atrial Fibrillation, CVA/TIA, Hypertension Additional Past Medical History / Comment(s): Mitral Regurgitation. Vlave replair 3 years ago. 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 Patient states she was having migraine headaches and was told to see a neurologi st, it was then he found the TIAs. 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 Past Anesthesia/Blood Transfusion Reactions: No Reported Reaction Past Psychological History: Depression Smoking Status: Former smoker Past Alcohol Use History: Rare Past Drug Use History: None Reported Additional Drug Use History / Comment(s): Patient reports she stopped started smoking in 1949's and stopped in 1979. - Past Family History Mother Family Medical History: Cancer Additional Family Medical History / Comment(s): Partial colon removed due to cancer, migraines, allergies. Sister(s) Family Medical History: Cancer Additional Family Medical History / Comment(s): Sister Lise: lymphoma, past smoker, breast cysts that she had fluid removed. Medications and Allergies Home Medications Medication Instructions Recorded Confirmed Type ALPRAZolam [Xanax] 0.25 mg PO DAILY PRN 03/18/15 12/09/20 History Dabigatran [Pradaxa] 150 mg PO BID 03/18/15 12/09/20 History Multivitamins, Thera [Multivitamin 1 each PO DAILY@1200 03/18/15 12/09/20 History (formulary)] Pravastatin Sodium [Pravachol] 20 mg PO DAILY 03/18/15 12/09/20 History Furosemide [Lasix] 20 mg PO BID 05/20/18 12/09/20 History Metoprolol Tartrate [Lopressor] 25 mg PO BID 05/20/18 12/09/20 History Citalopram Hydrobromide 40 mg PO DAILY 06/17/18 12/09/20 History [Citalopram HBr] Alendronate Sodium [Fosamax] 70 mg PO MO 12/09/20 12/09/20 History Cholecalciferol [Vitamin D3 (25 25 mcg PO DAILY 12/09/20 12/09/20 History Mcg = 1000 Iu)] Clopidogrel [Plavix] 75 mg PO DAILY 12/09/20 12/09/20 History Levothyroxine Sodium [Synthroid] 150 mcg PO DAILY 12/09/20 12/09/20 History Temazepam [Restoril] 30 mg PO HS PRN 12/09/20 12/09/20 History lisinopriL [Zestril] 10 mg PO DAILY 12/09/20 12/09/20 History Allergies Allergy/AdvReac Type Severity Reaction Status Date / Time morphine AdvReac Nausea Verified 12/09/20 18:59 Physical Exam Vitals: Vital Signs Temp Pulse Pulse Resp BP BP Pulse Ox 12/10/20 07:00 97.7 F 56 L 18 104/68 98 12/10/20 04:16 97.5 F L 62 103/63 98 12/10/20 02:00 62 12/09/20 18:39 78 16 108/68 98 12/09/20 16:30 98.3 F 74 16 140/95 98 Intake and Output 12/09/20 12/10/20 12/10/20 22:59 06:59 14:59 Other: Voiding Method Toilet # Voids 1 Weight 68.039 kg 68.039 kg Results 12/09/20 16:45 12/09/20 16:45 Cardiac Enzymes 12/09/20 12/09/20 Range/Units 16:45 16:45 AST 30 (14-36) U/L Troponin I <0.012 (0.000-0.034) ng/mL Coagulation 12/09/20 Range/Units 16:45 PT 10.7 (9.0-12.0) sec APTT 27.5 (22.0-30.0) sec CBC 12/09/20 Range/Units 16:45 WBC 3.2 L (3.8-10.6) k/uL RBC 3.96 (3.80-5.40) m/uL Hgb 10.1 L (11.4-16.0) gm/dL Hct 31.7 L (34.0-46.0) % Plt Count 244 (150-450) k/uL Comprehensive Metabolic Panel 12/09/20 Range/Units 16:45 Sodium 138 (137-145) mmol/L Potassium 4.6 (3.5-5.1) mmol/L Chloride 105 (98-107) mmol/L Carbon Dioxide 27 (22-30) mmol/L BUN 14 (7-17) mg/dL Creatinine 0.83 (0.52-1.04) mg/dL Glucose 87 (74-99) mg/dL Calcium 8.8 (8.4-10.2) mg/dL AST 30 (14-36) U/L ALT 14 (4-34) U/L Alkaline Phosphatase 52 (38-126) U/L Total Protein 6.8 (6.3-8.2) g/dL Albumin 4.1 (3.5-5.0) g/dL Current Medications Generic Name Dose Route Start Last Admin Trade Name Freq PRN Reason Stop Dose Admin Alprazolam 0.25 mg 12/09/20 17:42 Alprazolam 0.25 Mg Tab PO TID PRN Anxiety Dabigatran 150 mg 12/09/20 21:00 12/10/20 08:07 Dabigatran 150 Mg Cap PO 150 mg BID NAHOMY Administration Metoprolol Tartrate 25 mg 12/09/20 21:00 02/18/21 22:23 Metoprolol Tartrate 25 Mg Tab PO 25 mg BID NAHOMY Administration Naloxone HCl 0.2 mg 12/09/20 18:45 Naloxone 0.4 Mg/Ml 1 Ml Vial IV Q2M PRN Opioid Reversal Pantoprazole Sodium 40 mg 12/10/20 07:30 12/10/20 08:07 Pantoprazole 40 Mg Tablet PO 40 mg [id number] NAHOMY Administration Temazepam 30 mg 12/09/20 22:16 12/09/20 22:22 Temazepam 15 Mg Cap PO 30 mg HS PRN Administration Insomnia Intake and Output 12/09/20 12/10/20 12/10/20 22:59 06:59 14:59 Other: Voiding Method Toilet # Voids 1 Weight 68.039 kg 68.039 kg 12/09/20 16:45 12/09/20 16:45
--- NOTE | 2020-12-10 11:36 | ECHOF ---
Referral Reason:Stroke MEASUREMENTS -------- HEIGHT: 162.6 cm WEIGHT: 68.0 kg BP: 103/63 RVIDd: 3.3 cm (< 3.3) IVSd: 1.1 cm (0.6 - 1.1) LVIDd: 4.3 cm (3.9 - 5.3) LVPWd: 1.4 cm (0.6 - 1.1) IVSs: 1.5 cm LVIDs: 2.7 cm LVPWs: 1.9 cm Ao Diam: 2.7 cm (2.0 - 3.7) AV Cusp: 1.5 cm (1.5 - 2.6) LA Diam: 4.8 cm (2.7 - 3.8) MV EXCURSION: 10.667 mm (> 18.000) MV EF SLOPE: 57 mm/s (70 - 150) EPSS: 0.9 cm RAP: 5.00 mmHg RVSP: 33.38 mmHg FINDINGS -------- Atrial fibrillation. This was a technically adequate study. The left ventricular size is normal. There is mild concentric left ventricular hypertrophy. Overa ll left ventricular systolic function is normal with, an EF between 55 - 60 %. There is paradoxical /dysynergic septal motion consistent with post-operative status. The right ventricle is moderately enlarged. The left atrium is markedly dilated. The right atrium is moderately enlarged. Interatrial and interventricular septum intact. The aortic valve is trileaflet and appears structurally normal. There is no evidence of aortic regu rgitation. There is no evidence of aortic stenosis. Mild mitral regurgitation is present. The peak and mean MV gradients are 23.39mmHg 5.18mmHg as gerald sured by doppler. MV Repair. Mild tricuspid regurgitation present. There is borderline pulmonary artery hypertension. The righ t ventricular systolic pressure, as measured by Doppler, is 33.38mmHg. TVrepair. The aortic root size is normal. Normal inferior vena cava with normal inspiratory collapse consistent with estimated right atrial pre ssure of 5 mmHg. Liver cysts noted. There is no pericardial effusion. CONCLUSIONS -------- 1. The left ventricular size is normal. 2. There is mild concentric left ventricular hypertrophy. 3. Overall left ventricular systolic function is normal with, an EF between 55 - 60 %. 4. The right ventricle is moderately enlarged. 5. The left atrium is markedly dilated. 6. The right atrium is moderately enlarged. 7. Mild mitral regurgitation is present. 8. The peak and mean MV gradients are 23.39mmHg 5.18mmHg as measured by doppler. 9. MV Repair. 10. Mild tricuspid regurgitation present. 11. There is borderline pulmonary artery hypertension. 12. The right ventricular systolic pressure, as measured by Doppler, is 33.38mmHg. 13. TVrepair. MIXER DRIVER: Kayla Bro RDCS
[2020-12-10 15:12] LABS: Basophils # (A) 0.04 X 10*3/uL (0.00-0.10); Basophils % (A) 1.5 %; Eosinophils # (A) 0.13 X 10*3/uL (0.04-0.35); Eosinophils % (A) 4.7 %; HGB 9.4 g/dL (12.0-15.0); Lymphocytes # (A) 0.88 X 10*3/uL (0.90-5.00); Lymphocytes % (A) 32.1 %; MCH 25.5 pg (27.0-32.0); MCHC 30.3 g/dL (32.0-37.0); MCV 84.2 fL (80.0-97.0); Mean Platelet Volume 10.3 fL (9.5-12.2); Monocytes # (A) 0.36 X 10*3/uL (0.20-1.00); Monocytes % (A) 13.1 %; Neutrophils # (A) 1.33 X 10*3/uL (1.80-7.70); Neutrophils % (A) 48.6 %; Platelet Count 244 X 10*3/uL (140-440); RBC 3.68 X 10*6/uL (4.10-5.20); RDW 15.8 % (11.5-14.5); WBC 2.74 X 10*3/uL (4.50-10.00)
--- NOTE | 2020-12-10 15:24 | P.CNNES ---
History of Present Illness Consult date: 12/10/20 Requesting physician: Keyanna Rodriguez Reason for Consult: visual disturbance concern for TIA History of Present Illness: This is a 80-year-old female with history of stroke, atrial fibrillation on Pradaxa, valve repair who presented to the emergency department on the 12/09/2020 for sudden onset visual disturbance and dizziness. According to the patient she stated that yesterday she was walk-in at 3 PM and she noticed that the she had the visual disturbance of both eyes as well as was feeling dizzy at. She couldn't describe dizziness but just felt dizzy. Denies off any weakness, numbness, difficulty getting her words out, she denies of any headaches, any diplopia, ringing in the ears, hearing loss, difficulty swal lowing. She denies of any loss of consciousness. She stated that the episode lasted for 1 minute and resolved. She stated that she had a similar episode about 10 years ago and she was told by her neurologist that that this was due to TIA. Patient has not missed her anticoagulation dose. Currently the patient is back to baseline. Patient stated that she is also on Plavix 75 mg daily. Other home medication includes the pravastatin 20 mg daily, digoxin 62.5 g daily, Restoril 30 mg daily at bedtime, Xanax 0.25 mg when necessary. In the past she is to be on aspirin but was told to stop and if that to be on Plavix because of a TIA by a neurologist. Patient denies any history of seizures. Denies any family history of seizure. She stated she was a product of normal gestation and basilar artery without any complication. Workup in our facility consisted of: Initial vital signs his blood pressure 140/95, heart rate of 74, respiratory of 16, temperature of 98.3 Fahrenheit oral and pulse ox of 98% on room air. CT of the head is reported as degenerative and nonspecific white matter changes at. In the body it is mentioned there is a small focal area of abnormal signal involving the basal ganglia was compatible with remote lacunar infarct. I personally reviewed the CT of the head and I felt the patient had a remote bilateral lacunar basal ganglia stroke. Carotid duplex is reported as negative for elevated right internal carotid artery or left internal carotid artery stenosis. Intimal thickening seen bilaterally; with minimal plaque seen bilateral. EKG is reported as atrial fibrillation with rapid ventricular response. Rightward axis. Septal infarct, age undetermined. ST and T-wave abnormality, consider inferior lateral 2-D echo was reported as mild concentric left ventricular hypertrophy. Overall left ventricle systolic function is normal with ejection fraction of 55-60%. Left atrium is markedly dilated. Sodium is 138, BUN and creatinine is normal, calcium is 8.8, liver function is normal /. Review of Systems Review of system: The 12 point system was reviewed and apparent positive and negative per HPI. Past Medical History Past Medical History: Atrial Fibrillation, CVA/TIA, Hypertension Additional Past Medical History / Comment(s): Mitral Regurgitation. Vlave replair 3 years ago. 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 Patient states she was having migraine headaches and was told to see a neurologist, it was then he found the TIAs. 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 Past Anesthesia/Blood Transfusion Reactions: No Reported Reaction Past Psychological History: Depression Smoking Status: Former smoker Past Alcohol Use History: Rare Past Drug Use History: None Reported Additional Drug Use History / Comment(s): Patient reports she stopped started smoking in s and stopped in 1979. - Past Family History Mother Family Medical History: Cancer Additional Family Medical History / Comment(s): Partial colon removed due to cancer, migraines, allergies. Sister(s) Family Medical History: Cancer Additional Family Medical History / Comment(s): Sister Lise: lymphoma, past smoker, breast cysts that she had fluid removed. Medications and Allergies Home Medications Medication Instructions Recorded Confirmed Type ALPRAZolam [Xanax] 0.25 mg PO DAILY PRN 03/18/15 12/09/20 History Dabigatran [Pradaxa] 150 mg PO BID 03/18/15 12/09/20 History Multivitamins, Thera [Multivitamin 1 each PO DAILY@1200 03/18/15 12/09/20 History (formulary)] Pravastatin Sodium [Pravachol] 20 mg PO DAILY 03/18/15 12/09/20 History Furosemide [Lasix] 20 mg PO BID 05/20/18 12/09/20 History Metoprolol Tartrate [Lopressor] 25 mg PO BID 05/20/18 12/09/20 History Citalopram Hydrobromide 40 mg PO DAILY 06/17/18 12/09/20 History [Citalopram HBr] Alendronate Sodium [Fosamax] 70 mg PO MO 12/09/20 12/09/20 History Cholecalciferol [Vitamin D3 (25 25 mcg PO DAILY 12/09/20 12/09/20 History Mcg = 1000 Iu)] Clopidogrel [Plavix] 75 mg PO DAILY 12/09/20 12/09/20 History Levothyroxine Sodium [Synthroid] 150 mcg PO DAILY 12/09/20 12/09/20 History Temazepam [Restoril] 30 mg PO HS PRN 12/09/20 12/09/20 History lisinopriL [Zestril] 10 mg PO DAILY 12/09/20 12/09/20 History Allergies Allergy/AdvReac Type Severity Reaction Status Date / Time morphine AdvReac Nausea Verified 12/09/20 18:59 Physical Examination - Vital Signs Vital Signs: Vital Signs Temp Pulse Pulse Resp BP BP Pulse Ox 12/10/20 07:00 97.7 F 56 L 18 104/68 98 12/10/20 04:16 97.5 F L 62 103/63 98 12/10/20 02:00 62 12/09/20 18:39 78 16 108/68 98 12/09/20 16:30 98.3 F 74 16 140/95 98 Intake and Output 12/09/20 12/10/20 12/10/20 22:59 06:59 14:59 Other: Voiding Method Toilet # Voids 1 Weight 68.039 kg 68.039 kg GENERAL: The patient is lying in bed and is not in acute distress. CHEST: The heart rate is regular rate rhythm. No murmurs to auscultation. No carotid bruit bilaterally. LUNG: Clear to auscultation bilaterally no wheezing noted throughout. Not labored breathing. ABDOMEN/GI: Bowel sounds present in all 4 quadrants. No tenderness to palpation throughout. NEUROLOGICAL: Higher mental function: The patient is awake, alert, oriented to self, place and time. Patient is following commands. No aphasia and no neglect. Cranial nerves: The pupils are round, equal and reactive to light and accommodation. Visual owens are full to confrontation throughout. Extraocular movement is intact no nystagmus is noted. Facial sensation is normal to touch throughout. The facial strength is normal throughout. Hearing is normal bilaterally to hand rub. Tongue is midline and moved [id number] without any difficulty. No dysarthria is noted. Shoulder shrug is normal bilaterally. Motor: Gait is normal with normal arm swings. The strength is 5 over 5 throughout. Normal tone and bulk. Cerebellum: Normal finger to nose bilaterally. Sensation: Sensation is normal to touch throughout. Reflexes (right/left): 2+ throughout Plantars are downgoing bilaterally. Results Urinalysis is negative for ureter tract infection. Lainez virus PCR was not detected. Prognosis study: PT of 10.7, INR 1.0 and PTT of 27.5 - Laboratory Findings CBC and BMP: 12/10/20 08:10 12/09/20 16:45 Abnormal Lab Findings: Abnormal Labs 12/09/20 16:45 WBC 3.2 L Hgb 10.1 L Hct 31.7 L Assessment and Plan Assessment: This is a 80-year-old female with medical medical problem that presented to the emergency department on 12/09/2020 for an episode of visual disturbance noticing her vision is blurry as well as feeling dizzy that lasted 1 minute and this happen about 3 PM on 12/09/2020. Transient episode of visual disturbance (blurry vision) and feeling dizzy seems likely Transient Ischemic attack History of stroke (has lacunar infarct in the basal ganglia bilaterally on CT head) atrial fibrillation on Pradaxa History of valve repair Plan: CT of the head is reported as degenerative and nonspecific white matter changes at. In the body it is mentioned there is a small focal area of abnormal signal involving the basal ganglia was compatible with remote lacunar infarct. I personally reviewed the CT of the head and I felt the patient had a remote bilateral lacunar basal ganglia stroke. Carotid duplex is reported as negative for elevated right internal carotid artery or left internal carotid artery stenosis. Intimal thickening seen bilaterally; with minimal plaque seen bilateral. 2-D echo was reported as mild concentric left ventricular hypertrophy. Overall left ventricle systolic function is normal with ejection fraction of 55-60%. Left atrium is markedly dilated. The patient was restarted on her Pradaxa 150 mg 1 tablet twice a day. I restarted the patient home Plavix 75 mg daily. Consider switching from Pradaxa which she said that she's been on for 6 years to Eliquis if she had another episode of TIA. And continue Plavix 75 mg daily. If cardiology is in agreement then we can pursue it. I started the patient on Lipitor 40 mg daily since we don't have pravastatin in the hospital. TSH is ordered by the primary team is pending. I ordered MRI of the brain, CTA of the head and neck. Continue Neuro-checks The plan is discussed with the patient and her nurse. Thank you for the consultation. Thomas Cristina MD Neuro-Hospitalist Time with Patient: Greater than 30
[2020-12-10] MEDS: CLOPIDOGREL 75 MG TAB PO SCH (15:50)
--- NOTE | 2020-12-10 18:15 | CT ---
EXAMINATION TYPE: CT angio head neck DATE OF EXAM: 12/10/2020 COMPARISON: HISTORY: Stroke, episode of dizziness and blurry vision CT DLP: 255.50 mGycm Automated exposure control for dose reduction was used. CONTRAST: Performed with IV Contrast, patient injected with 65 mL of Isovue 370. There are 3-D post processed images. Images obtained from the aortic arch to the vertex of the brain. FINDINGS: There is normal branching pattern of the great vessels on the aortic arch. There is bilateral arteria l flow in the subclavian arteries. There is arterial flow in both vertebral arteries. There is arteri al flow in the common internal and external carotid arteries bilaterally. There is no evidence of car otid or vertebral artery aneurysm or dissection. There is normal arterial flow in the vertebrobasilar artery system. I see no evidence of intracranial aneurysm or neovascularity. There is no mass effect . There is no evidence of intracranial arterial stenosis. There is normal contrast opacification of the venous sinuses. IMPRESSION: Negative CT angiogram of the neck. Negative CT angiogram of the brain.
[2020-12-10 20:24] LABS: African American GFR (CKD) 62.5 (60.0-200.0); Anion Gap 4.4 mmol/L (4.00-12.00); Calcium 8.5 mg/dL (8.7-10.3); Carbon Dioxide 28.6 mmol/L (21.6-31.8); Non-African American GFR(CKD) 53.9 (60.0-200.0); Potassium 4.2 mmol/L (3.5-5.5)
[2020-12-10] MEDS: ATORVASTATIN 40 MG TAB PO SCH (21:57)
[2020-12-10] MEDS: TEMAZEPAM 15 MG CAP PO PRN (21:58)
[2020-12-11] MEDS: METOPROLOL TARTRATE 25 MG TAB PO SCH ×2 (08:07→20:49)
[2020-12-11] MEDS: PANTOPRAZOLE 40 MG TABLET PO SCH (08:07)
[2020-12-11] MEDS: CLOPIDOGREL 75 MG TAB PO SCH (08:08)
[2020-12-11] MEDS: DABIGATRAN 150 MG CAP PO SCH ×2 (08:08→20:49)
[2020-12-11 09:11] LABS: Basophils # (A) 0.04 X 10*3/uL (0.00-0.10); Basophils % (A) 1.3 %; Eosinophils # (A) 0.12 X 10*3/uL (0.04-0.35); Eosinophils % (A) 3.9 %; HCT 32.1 % (37.2-46.3); HGB 9.9 g/dL (12.0-15.0); Lymphocytes # (A) 1.07 X 10*3/uL (0.90-5.00); Lymphocytes % (A) 35.1 %; MCH 25.5 pg (27.0-32.0); MCHC 30.8 g/dL (32.0-37.0); MCV 82.7 fL (80.0-97.0); Mean Platelet Volume 10.4 fL (9.5-12.2); Monocytes # (A) 0.39 X 10*3/uL (0.20-1.00); Monocytes % (A) 12.8 %; Neutrophils # (A) 1.42 X 10*3/uL (1.80-7.70); Neutrophils % (A) 46.6 %; Platelet Count 244 X 10*3/uL (140-440); RBC 3.88 X 10*6/uL (4.10-5.20); RDW 15.7 % (11.5-14.5); WBC 3.05 X 10*3/uL (4.50-10.00)
[2020-12-11 09:16] LABS: Anion Gap 6.4 mmol/L (4.00-12.00); BUN/Creat Ratio 21.11 Ratio (12.00-20.00); Calcium 8.7 mg/dL (8.7-10.3); Carbon Dioxide 27.6 mmol/L (21.6-31.8); Non-African American GFR(CKD) 61.2 (60.0-200.0); Potassium 4.4 mmol/L (3.5-5.5)
--- NOTE | 2020-12-11 10:39 | P.HPIM ---
History of Present Illness H&P Date: 12/10/20 Chief Complaint: Strokelike symptoms 80-year-old female with past medical history of CVA, A. fib, valve repair who presents to the emergency room with possible stroke like symptoms. Patient reports that around 3 PM she was crocheting. She had sudden onset of visual disturbance and weakness. States that both her legs gave out on her and she fell into a chair. Has been witnessed this and states that she was altered for approximately 45 minutes before she to baseline. Patient does have this history of CVA however has no prolonged deficits. She called her neurologist and her primary care who recommended that she come in to the emergency room evaluation. Reports that she had no lateralizing symptoms. No present symptoms at this time except for a mild occipital headache. No speech difficulties. Patient does have a history of A. fib and valve repair for which she does take pradaxa. No missed doses. Denies any chest pain or shortness of breath. No fevers or chills. EKG demonstrates A. fib with a rate of 101. QRS 88. QTC of 430. No acute ST segment elevations or depressions CT of the brain was done without contrast which was negative; patient is admit bety for further neurology evaluation Review of Systems REVIEW OF SYSTEMS: CONSTITUTIONAL: No fever, no malaise, no fatigue. HEENT: No recent visual problems or hearing problems. Denied any sore throat. CARDIOVASCULAR: No chest pain, orthopnea, PND, no palpitations, no syncope. PULMONARY: No shortness of breath, no cough, no hemoptysis. GASTROINTESTINAL: No diarrhea, no nausea, no vomiting, no abdominal pain. NEUROLOGICAL: Per HPI. HEMATOLOGICAL: Denies any bleeding or petechiae. GENITOURINARY: Denies any burning micturition, frequency, or urgency. MUSCULOSKELETAL/RHEUMATOLOGICAL: Denies any joint pain, swelling, or any muscle pain. ENDOCRINE: Denies any polyuria or polydipsia. The rest of the 14-point review of systems is negative. Past Medical History Past Medical History: Atrial Fibrillation, CVA/TIA, Hypertension Additional Past Medical History / Comment(s): Mitral Regurgitation. Amarilys replair 3 years ago. 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 Patient states she was having migraine headaches and was told to see a neurologist, it was then he found the TIAs. 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 Past Anesthesia/Blood Transfusion Reactions: No Reported Reaction Past Psychological History: Depression Smoking Status: Former smoker Past Alcohol Use History: Rare Past Drug Use History: None Reported Additional Drug Use History / Comment(s): Patient reports she stopped started smoking in 1949's and stopped in 1979. - Past Family History Mother Family Medical History: Cancer Additional Family Medical History / Comment(s): Partial colon removed due to cancer, migraines, allergies. Sister(s) Family Medical History: Cancer Additional Family Medical History / Comment(s): Sister Lise: lymphoma, past smoker, breast cysts that she had fluid removed. Medications and Allergies Home Medications Medication Instructions Recorded Confirmed Type ALPRAZolam [Xanax] 0.25 mg PO DAILY PRN 03/18/15 12/09/20 History Dabigatran [Pradaxa] 150 mg PO BID 03/18/15 12/09/20 History Multivitamins, Thera [Multivitamin 1 each PO DAILY@1200 03/18/15 12/09/20 History (formulary)] Pravastatin Sodium [Pravachol] 20 mg PO DAILY 03/18/15 12/09/20 History Furosemide [Lasix] 20 mg PO BID 05/20/18 12/09/20 History Metoprolol Tartrate [Lopressor] 25 mg PO BID 05/20/18 12/09/20 History Citalopram Hydrobromide 40 mg PO DAILY 06/17/18 12/09/20 History [Citalopram HBr] Alendronate Sodium [Fosamax] 70 mg PO MO 12/09/20 12/09/20 History Cholecalciferol [Vitamin D3 (25 25 mcg PO DAILY 12/09/20 12/09/20 History Mcg = 1000 Iu)] Clopidogrel [Plavix] 75 mg PO DAILY 12/09/20 12/09/20 History Levothyroxine Sodium [Synthroid] 150 mcg PO DAILY 12/09/20 12/09/20 History Temazepam [Restoril] 30 mg PO HS PRN 12/09/20 12/09/20 History lisinopriL [Zestril] 10 mg PO DAILY 12/09/20 12/09/20 History Allergies Allergy/AdvReac Type Severity Reaction Status Date / Time morphine AdvReac Nausea Verified 12/09/20 18:59 Physical Exam Vitals: Vital Signs Temp Pulse Pulse Resp BP BP Pulse Ox 12/10/20 07:00 97.7 F 56 L 18 104/68 98 12/10/20 04:16 97.5 F L 62 103/63 98 12/10/20 02:00 62 12/09/20 18:39 78 16 108/68 98 12/09/20 16:30 98.3 F 74 16 140/95 98 Intake and Output 12/09/20 12/10/20 12/10/20 22:59 06:59 14:59 Other: Voiding Method Toilet # Voids 1 Weight 68.039 kg 68.039 kg - Constitutional General appearance: Present: average body habitus, cooperative, no acute distress - EENT Eyes: Present: anicteric sclerae, EOMI, PERRLA, normal appearance ENT: Present: hearing grossly normal, normal oropharynx Ears: bilateral: normal - Neck Neck: Present: normal ROM. Absent: lymphadenopathy, rigidity, thyromegaly Carotids: negative: bruit present Thyroid: bilateral: normal size, negative: enlarged, nodule - Respiratory Respiratory: bilateral: CTA, negative: rales, rhonchi, wheezing - Cardiovascular Rhythm: regular Heart sounds: normal: S1, S2 Abnormal Heart Sounds: Absent: systolic murmur, diastolic murmur - Gastrointestinal General gastrointestinal: Present: normal bowel sounds, soft. Absent: distended, organomegaly, tenderness - Genitourinary Genitourinary Comment(s): deferred - Integumentary Integumentary: Present: normal turgor. Absent: jaundiced, rash, ulcer - Neurologic Neurologic: Present: CNII-XII intact. Absent: focal deficits - Musculoskeletal Musculoskeletal: Present: gait normal, strength equal bilaterally - Psychiatric Psychiatric: Present: A&O x's 3, appropriate affect, intact judgment & insight Results CBC & Chem 7: 12/11/20 06:27 12/11/20 06:27 Labs: Abnormal Lab Results - Last 24 Hours (Table) 12/09/20 Range/Units 16:45 WBC 3.2 L (3.8-10.6) k/uL Hgb 10.1 L (11.4-16.0) gm/dL Hct 31.7 L (34.0-46.0) % Assessment and Plan Assessment: 1. Acute encephalopathy; TIA versus CVA - Bilateral carotid ultrasound is completed and unremarkable - 2-D echo reveals mild concentric LVH, EF of 55-60% - Neurology on board and recommending to obtain an MRI of the brain - Patient is recommended to continue with aspirin, Plavix and started on Lipitor 40 mg daily; recommended to switch from Pradaxa to Eliquis if patient has another episode of TIA 2. Bicytopenia; neutropenia/anemia; we will monitor CBC and plan to consult hematology if blood counts continue to drop 3. Uncontrolled hypertension; resume home antihypertensive therapy in form of metoprolol 25 mg twice a day and lisinopril 10 mg daily; monitor blood pressure closely and adjust medications if needed 4. Atrial fibrillation with pauses on monitor; patient takes metoprolol and digoxin for rate control; cardiology recommending to discontinue digoxin; 2-D echo is ordered 5. Hyperlipidemia; continue with home statin therapy, patient takes Pravachol 20 mg daily 6. Hypothyroidism; levothyroxine 150 MCG daily 7. CAD/CHF; stable on aspirin, statin, beta blockers and Plavix; Lasix 20 mg twice a day 8. Depression; continue with Celexa 40 mg daily; Restoril 30 mg by mouth daily at bedtime when necessary for insomnia DVT prophylaxis; SCDs/systemic anticoagulation CODE STATUS; full code
--- NOTE | 2020-12-11 13:21 | MR ---
EXAMINATION TYPE: MR brain wo con DATE OF EXAM: 12/11/2020 8:41 AM COMPARISON: NONE HISTORY: Dizziness, visual disturbance FINDINGS: The ventricles, basal cisterns and sulci overlying the cerebral convexities are mildly enlarged. There is evidence of moderate periventricular white matter ischemic demyelination. Remote deep white matter insults are also noted. No acute edema is seen on diffusion weighted imaging. There is no evidence for midline shift or mass effect. Acute intracranial hemorrhage or extra-axial collection is not evident. The paranasal sinuses are well-aerated. Chronic left-sided mastoiditis. Left mucous retention cyst IMPRESSION: Age-related atrophic and chronic small vessel ischemic change. No acute intracranial process at this time.
--- NOTE | 2020-12-11 14:58 | P.PN ---
Subjective Progress Note Date: 12/11/20 The patient was seen at bedside and she stated that she's doing better compared to yesterday. She denies any further episodes of blurry vision or dizziness. She denies any weakness, numbness, difficulty getting her words out. Patient had MRI of the brain today and it's reported as age-related atrophic and chronic small vessel ischemic change. No acute intracranial process this time. I personally reviewed MR the brain and there is no acute or subacute ischemia. On the FLAIR images the patient seems to have chronic small vessel changes. CTA of the head and neck are reported as negative. Objective - Vital Signs Vital signs: Vital Signs Temp 97.9 F 12/11/20 07:00 Pulse 83 12/11/20 13:40 Resp 16 12/11/20 13:40 BP 101/67 12/11/20 07:00 Pulse Ox 99 12/11/20 07:00 Intake & Output 12/10/20 12/11/20 12/11/20 18:59 06:59 18:59 Output Total 0 Balance 0 Output: Stool 0 Other: Voiding Method Toilet Toilet # Voids 2 1 1 - Exam GENERAL: The patient is lying in bed and is not in acute distress. NEUROLOGICAL: Higher mental function: The patient is awake, alert, oriented to self, place and time. Patient is following commands. No aphasia and no neglect. Cranial nerves: The pupils are round, equal and reactive to light and ac commodation. Visual owens are full to confrontation throughout. Extraocular movement is intact no nystagmus is noted. Facial sensation is normal to touch throughout. The facial strength is normal throughout. Hearing is normal bilaterally to hand rub. Tongue is midline and moved [id number] without any difficulty. No dysarthria is noted. Shoulder shrug is normal bilaterally. Motor: Gait is normal with normal arm swings. The strength is 5 over 5 throughout. Normal tone and bulk. Cerebellum: Normal finger to nose bilaterally. Sensation: Sensation is normal to touch throughout. Reflexes (right/left): 2+ throughout Plantars are downgoing bilaterally. - Labs CBC & Chem 7: 12/11/20 06:27 12/11/20 06:27 Labs: Abnormal Lab Results - Last 24 Hours (Table) 12/10/20 12/10/20 12/11/20 Range/Units 08:10 08:10 06:27 WBC 2.74 L 3.05 L (4.50-10.00) X 10*3/uL RBC 3.68 L 3.88 L (4.10-5.20) X 10*6/uL Hgb 9.4 L 9.9 L (12.0-15.0) g/dL Hct 31.0 L 32.1 L (37.2-46.3) % MCH 25.5 L 25.5 L (27.0-32.0) pg MCHC 30.3 L 30.8 L (32.0-37.0) g/dL RDW 15.8 H 15.7 H (11.5-14.5) % Neutrophils # 1.33 L 1.42 L (1.80-7.70) X 10*3/uL Lymphocytes # 0.88 L (0.90-5.00) X 10*3/uL Est GFR (CKD-EPI)NonAf 53.9 L (60.0-200.0) BUN/Creatinine Ratio (12.00-20.00) Ratio Calcium 8.5 L (8.7-10.3) mg/dL 12/11/20 Range/Units 06:27 WBC (4.50-10.00) X 10*3/uL RBC (4.10-5.20) X 10*6/uL Hgb (12.0-15.0) g/dL Hct (37.2-46.3) % MCH (27.0-32.0) pg MCHC (32.0-37.0) g/dL RDW (11.5-14.5) % Neutrophils # (1.80-7.70) X 10*3/uL Lymphocytes # (0.90-5.00) X 10*3/uL Est GFR (CKD-EPI)NonAf (60.0-200.0) BUN/Creatinine Ratio 21.11 H (12.00-20.00) Ratio Calcium (8.7-10.3) mg/dL Assessment and Plan Assessment: This is a 80-year-old female with medical medical problem that presented to the emergency department on 12/09/2020 for an episode of visual disturbance noticing her vision is blurry as well as feeling dizzy that lasted 1 minute and this happen about 3 PM on 12/09/2020. Transient episode of visual disturbance (blurry vision) and feeling dizzy seems likely Transient Ischemic attack History of stroke (has lacunar infarct in the basal ganglia bilaterally on CT head) atrial fibrillation on Pradaxa History of valve repair Plan: CT of the head is reported as degenerative and nonspecific white matter changes at. In the body it is mentioned there is a small focal area of abnormal signal involving the basal ganglia was compatible with remote lacunar infarct. I personally reviewed the CT of the head and I felt the patient had a remote bilateral lacunar basal ganglia stroke. Carotid duplex is reported as negative for elevated right internal carotid artery or left internal carotid artery stenosis. Intimal thickening seen bilaterally; with minimal plaque seen bilateral. 2-D echo was reported as mild concentric left ventricular hypertrophy. Overall left ventricle systolic function is normal with ejection fraction of 55-60%. Left atrium is markedly dilated. Patient had MRI of the brain today and it's reported as age-related atrophic and chronic small vessel ischemic change. No acute intracranial process this time. I personally reviewed MR the brain and there is no acute or subacute ischemia. On the FLAIR images the patient seems to have chronic small vessel changes. CTA of the head and neck are reported as negative. The patient was restarted on her Pradaxa 150 mg 1 tablet twice a day. Continue home Plavix 75 mg daily (she was on ASA in the past but was told to stop it since had TIA) Consider switching from Pradaxa which she said that she's been on for 6 years to Eliquis if she had another episode of TIA, she stated that the she will start to her beamster as an outpatient. And continue Plavix 75 mg daily. Continue Lipitor 40 mg daily since we don't have pravastatin in the hospital. TSH: 4.90 Continue Neuro-checks Patient was notified to follow up with a neurologist in outpatient within 1-2 weeks. No further workup is needed at this time. The plan is discussed with the patient and her nurse. Thomas Cristina MD Neuro-Hospitalist Time with Patient: Less than 30
[2020-12-11] MEDS: ATORVASTATIN 40 MG TAB PO SCH (20:49)
[2020-12-11] MEDS: TEMAZEPAM 15 MG CAP PO PRN (23:36)
[2020-12-12] MEDS: DABIGATRAN 150 MG CAP PO SCH (07:52)
[2020-12-12] MEDS: CLOPIDOGREL 75 MG TAB PO SCH (07:52)
[2020-12-12] MEDS: METOPROLOL TARTRATE 25 MG TAB PO SCH (07:52)
[2020-12-12] MEDS: PANTOPRAZOLE 40 MG TABLET PO SCH (07:52)
[2020-12-12 08:23] VITALS: BP 111/71; PULSE 66; RESP 16; TEMP 98.4
[2020-12-12 09:10] LABS: Basophils # (A) 0.04 X 10*3/uL (0.00-0.10); Basophils % (A) 0.9 %; Eosinophils # (A) 0.14 X 10*3/uL (0.04-0.35); Eosinophils % (A) 3.2 %; HCT 31.7 % (37.2-46.3); HGB 9.6 g/dL (12.0-15.0); Lymphocytes # (A) 1.11 X 10*3/uL (0.90-5.00); Lymphocytes % (A) 25.8 %; MCH 25.3 pg (27.0-32.0); MCHC 30.3 g/dL (32.0-37.0); MCV 83.4 fL (80.0-97.0); Mean Platelet Volume 10.1 fL (9.5-12.2); Monocytes # (A) 0.37 X 10*3/uL (0.20-1.00); Monocytes % (A) 8.6 %; Neutrophils # (A) 2.65 X 10*3/uL (1.80-7.70); Neutrophils % (A) 61.5 %; Platelet Count 241 X 10*3/uL (140-440); RDW 15.6 % (11.5-14.5); WBC 4.31 X 10*3/uL (4.50-10.00)
[2020-12-12 09:27] LABS: African American GFR (CKD) 81.8 (60.0-200.0); Anion Gap 6.4 mmol/L (4.00-12.00); Calcium 8.6 mg/dL (8.7-10.3); Carbon Dioxide 28.6 mmol/L (21.6-31.8); Non-African American GFR(CKD) 70.6 (60.0-200.0); Potassium 4.2 mmol/L (3.5-5.5)
== END 2020-12-12 11:50 | disposition home or self-care (01) | DRG 69 ==
LOC: EC 16:23 → 6NMEDSUR 18:45 → OBSVTOIN 12-11 07:39 → 4SSUR 12-11 22:23
PROVIDERS: ADMIT Hospitalist; ATTEND Hospitalist
DX: G45.9 Transient cerebral ischemic attack, unspecified (principal); I48.19 Other persistent atrial fibrillation; G93.40 Encephalopathy, unspecified; E78.5 Hyperlipidemia, unspecified; E03.9 Hypothyroidism, unspecified; F32.9 Major depressive disorder, single episode, unspecified; F17.200 Nicotine dependence, unspecified, uncomplicated; G47.00 Insomnia, unspecified; D70.9 Neutropenia, unspecified; D64.9 Anemia, unspecified; I34.0 Nonrheumatic mitral (valve) insufficiency; Z20.822 Contact with and (suspected) exposure to COVID-19; G43.909 Migraine, unspecified, not intractable, without status migrainosus; I11.0 Hypertensive heart disease with heart failure; I50.9 Heart failure, unspecified; J44.9 Chronic obstructive pulmonary disease, unspecified; Z98.84 Bariatric surgery status; Z95.2 Presence of prosthetic heart valve; Z90.710 Acquired absence of both cervix and uterus; Z86.73 Personal history of transient ischemic attack (TIA), and cerebral infarction without residual deficits; Z80.7 Family history of other malignant neoplasms of lymphoid, hematopoietic and related tissues; Z80.0 Family history of malignant neoplasm of digestive organs; Z79.899 Other long term (current) drug therapy; Z79.890 Hormone replacement therapy; Z79.83 Long term (current) use of bisphosphonates; Z79.02 Long term (current) use of antithrombotics/antiplatelets; Z79.01 Long term (current) use of anticoagulants; Z88.5 Allergy status to narcotic agent; Z90.49 Acquired absence of other specified parts of digestive tract; Z98.890 Other specified postprocedural states; Z80.9 Family history of malignant neoplasm, unspecified
CPT/HCPCS: 36415; 70450; 70496; 70498; 70551; 71046; 80048; 80053; 81003; 84443; 84484; 85025; 85610; 85730; 87635; 93005; 93306; 93880; 99285

== ENCOUNTER 2021-10-29 12:13 | Emergency (ER) | payer MEDICARE ==
[2021-10-29 12:20] VITALS: RESP 18; TEMP 97
[2021-10-29] MEDS ORDERED: SODIUM CHLORIDE 0.9% 1,000 ML IV STA (13:17)
[2021-10-29] MEDS ORDERED: PANTOPRAZOLE 40 MG/10 ML VIAL IVP STA (13:17)
[2021-10-29] MEDS ORDERED: ONDANSETRON 4 MG/2 ML VIAL IVP STA (13:17)
--- NOTE | 2021-10-29 13:21 | ED ---
General Adult HPI - General Chief complaint: Abdominal Pain Stated complaint: ab Pain Time Seen by Provider: 10/29/21 12:36 Source: patient, RN notes reviewed Mode of arrival: ambulatory Limitations: no limitations - History of Present Illness Initial comments: Patient is a pleasant 81-year-old female presenting to the emergency Department with abdominal pain. Onset of symptoms was around 1 week ago. Symptoms are similar to previous pancreatitis she had approximately 11 months ago. Patient does not regularly drink alcohol. Patient has had previous cholecystectomy. Discomfort is epigastric. There is some radiation towards the back. Patient h as had decreased appetite. Oral intake make symptoms worse. Patient has had some loose stools. - Related Data Home Medications Medication Instructions Recorded Confirmed ALPRAZolam [Xanax] 0.25 mg PO DAILY PRN 03/18/15 12/09/20 Dabigatran [Pradaxa] 150 mg PO BID 03/18/15 12/09/20 Multivitamins, Thera [Multivitamin 1 each PO DAILY@1200 03/18/15 12/09/20 (formulary)] Furosemide [Lasix] 20 mg PO BID 05/20/18 12/09/20 Metoprolol Tartrate [Lopressor] 25 mg PO BID 05/20/18 12/09/20 Citalopram Hydrobromide 40 mg PO DAILY 06/17/18 12/09/20 [Citalopram HBr] Alendronate Sodium [Fosamax] 70 mg PO MO 12/09/20 12/09/20 Cholecalciferol [Vitamin D3 (25 25 mcg PO DAILY 12/09/20 12/09/20 Mcg = 1000 Iu)] Clopidogrel [Plavix] 75 mg PO DAILY 12/09/20 12/09/20 Levothyroxine Sodium [Synthroid] 150 mcg PO DAILY 12/09/20 12/09/20 Temazepam [Restoril] 30 mg PO HS PRN 12/09/20 12/09/20 lisinopriL [Zestril] 10 mg PO DAILY 12/09/20 12/09/20 Previous Rx's Medication Instructions Recorded Atorvastatin [Lipitor] 40 mg PO HS #30 tab 12/12/20 Famotidine [Pepcid] 20 mg PO BID #30 tablet 10/29/21 Ondansetron Odt [Zofran Odt] 4 mg PO Q8HR PRN #10 tab 10/29/21 Allergies Allergy/AdvReac Type Severity Reaction Status Date / Time morphine AdvReac Nausea Verified 10/29/21 12:20 Review of Systems ROS Statement: Those systems with pertinent positive or pertinent negative responses have been documented in the HPI. ROS Other: All systems not noted in ROS Statement are negative. Constitutional: Denies: fever Eyes: Denies: eye pain ENT: Denies: ear pain Respiratory: Denies: cough Cardiovascular: Denies: chest pain Endocrine: Reports: fatigue Gastrointestinal: Reports: abdominal pain, nausea, diarrhea. Denies: vomiting Genitourinary: Denies: dysuria Musculoskeletal: Denies: back pain Skin: Denies: rash Neurological: Denies: weakness Past Medical History Past Medical History: Atrial Fibrillation, CVA/TIA, Hypertension Additional Past Medical History / Comment(s): Mitral Regurgitation. Vlave replacement 3 years ago. 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 Patient states she was having migraine headaches and was told to see a neurologist, it was then he found the TIAs. 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 Past Anesthesia/Blood Transfusion Reactions: No Reported Reaction Past Psychological History: Depression Smoking Status: Former smoker Past Alcohol Use History: Rare Past Drug Use History: None Reported - Past Family History Mother Family Medical History: Cancer Additional Family Medical History / Comment(s): Partial colon removed due to cancer, migraines, allergies. Sister(s) Family Medical History: Cancer Additional Family Medical History / Comment(s): Sister Lise: lymphoma, past smoker, breast cysts that she had fluid removed. General Exam Limitations: no limitations General appearance: alert, in no apparent distress Head exam: Present: normocephalic Eye exam: Present: normal appearance Neck exam: Present: normal inspection Respiratory exam: Present: normal lung sounds bilaterally Cardiovascular Exam: Present: regular rate, normal rhythm Expanded Peripheral pulses: 2+: Radial (R), Radial (L), Dorsalis Pedis (R), Dorsalis Pedis (L) GI/Abdominal exam: Present: soft, tenderness (Mild to moderate epigastric tenderness), normal bowel sounds. Absent: distended, guarding, rebound, rigid, pulsatile mass Extremities exam: Present: normal inspection Neurological exam: Present: alert Psychiatric exam: Present: normal affect, normal mood Skin exam: Present: normal color Course Vital Signs 10/29/21 12:15 Temperature 97 F L Pulse Rate 54 L Respiratory 18 Rate Blood Pressure 127/66 O2 Sat by Pulse 98 Oximetry EKG Findings - EKG Comments: EKG Findings:: A. fib with rate of 49. QRS 92. QT 414. QTC 373. Normal axis. Septal Q waves. Nonspecific T waves. Medical Decision Making - Medical Decision Making Patient reevaluated and resting comfortably in bed. Abdomen is soft with mild epigastric tenderness. Patient states she is having some discomfort still however is improved. Patient is offered admission with internal medicine and reyes rgical evaluation and monitoring and further testing however refuses this. Patient is afraid of contacting COVID-19 infection. Patient also does not feel this is necessary. As I have no definitive acute process it is reasonable for patient to go home and follow-up. Patient is made aware of need to return for worsening symptoms. Family is present and also made aware. - Lab Data Result diagrams: 10/29/21 13:34 10/29/21 13:34 Lab Results 10/29/21 10/29/21 10/29/21 Range/Units 13:34 13:34 13:34 WBC 3.9 (3.8-10.6) k/uL RBC 3.93 (3.80-5.40) m/uL Hgb 11.5 (11.4-16.0) gm/dL Hct 35.0 (34.0-46.0) % MCV 89.1 (80.0-100.0) fL MCH 29.3 (25.0-35.0) pg MCHC 32.9 (31.0-37.0) g/dL RDW 13.9 (11.5-15.5) % Plt Count 248 (150-450) k/uL MPV 7.1 Neutrophils % 64 % Lymphocytes % 20 % Monocytes % 8 % Eosinophils % 3 % Basophils % 1 % Neutrophils # 2.5 (1.3-7.7) k/uL Lymphocytes # 0.8 L (1.0-4.8) k/uL Monocytes # 0.3 (0-1.0) k/uL Eosinophils # 0.1 (0-0.7) k/uL Basophils # 0.0 (0-0.2) k/uL PT (9.0-12.0) sec INR (<1.2) APTT (22.0-30.0) sec Sodium 139 (137-145) mmol/L Potassium 4.4 (3.5-5.1) mmol/L Chloride 109 H (98-107) mmol/L Carbon Dioxide 24 (22-30) mmol/L Anion Gap 6 mmol/L BUN 15 (7-17) mg/dL Creatinine 0.63 (0.52-1.04) mg/dL Est GFR (CKD-EPI)AfAm >90 (>60 ml/min/1.73 sqM) Est GFR (CKD-EPI)NonAf 86 (>60 ml/min/1.73 sqM) Glucose 86 (74-99) mg/dL Calcium 8.8 (8.4-10.2) mg/dL Total Bilirubin 0.6 (0.2-1.3) mg/dL AST 26 (14-36) U/L ALT 11 (4-34) U/L Alkaline Phosphatase 58 (38-126) U/L Troponin I (0.000-0.034) ng/mL Total Protein 6.4 (6.3-8.2) g/dL Albumin 3.6 (3.5-5.0) g/dL Amylase 84 (30-110) U/L Lipase 164 (23-300) U/L Urine Color Light Yellow Urine Appearance Cloudy H (Clear) Urine pH 5.0 (5.0-8.0) Ur Specific [place] 1.008 (1.001-1.035) Urine Protein Negative (Negative) Urine Glucose (UA) Negative (Negative) Urine Ketones Negative (Negative) Urine Blood Negative (Negative) Urine Nitrite Negative (Negative) Urine Bilirubin Negative (Negative) Urine Urobilinogen <2.0 (<2.0) mg/dL Ur Leukocyte Esterase Small H (Negative) Urine RBC 1 (0-5) /hpf Urine WBC 2 (0-5) /hpf Ur Squamous Epith Cells 1 (0-4) /hpf Amorphous Sediment Occasional H (None) /hpf Hyaline Casts 5 H (0-2) /lpf Urine Mucus Rare H (None) /hpf 10/29/21 10/29/21 Range/Units 13:34 13:34 WBC (3.8-10.6) k/uL RBC (3.80-5.40) m/uL Hgb (11.4-16.0) gm/dL Hct (34.0-46.0) % MCV (80.0-100.0) fL MCH (25.0-35.0) pg MCHC (31.0-37.0) g/dL RDW (11.5-15.5) % Plt Count (150-450) k/uL MPV Neutrophils % % Lymphocytes % % Monocytes % % Eosinophils % % Basophils % % Neutrophils # (1.3-7.7) k/uL Lymphocytes # (1.0-4.8) k/uL Monocytes # (0-1.0) k/uL Eosinophils # (0-0.7) k/uL Basophils # (0-0.2) k/uL PT 10.3 (9.0-12.0) sec INR 1.0 (<1.2) APTT 26.1 (22.0-30.0) sec Sodium (137-145) mmol/L Potassium (3.5-5.1) mmol/L Chloride (98-107) mmol/L Carbon Dioxide (22-30) mmol/L Anion Gap mmol/L BUN (7-17) mg/dL Creatinine (0.52-1.04) mg/dL Est GFR (CKD-EPI)AfAm (>60 ml/min/1.73 sqM) Est GFR (CKD-EPI)NonAf (>60 ml/min/1.73 sqM) Glucose (74-99) mg/dL Calcium (8.4-10.2) mg/dL Total Bilirubin (0.2-1.3) mg/dL AST (14-36) U/L ALT (4-34) U/L Alkaline Phosphatase (38-126) U/L Troponin I <0.012 (0.000-0.034) ng/mL Total Protein (6.3-8.2) g/dL Albumin (3.5-5.0) g/dL Amylase (30-110) U/L Lipase (23-300) U/L Urine Color Urine Appearance (Clear) Urine pH (5.0-8.0) Ur Specific [place] (1.001-1.035) Urine Protein (Negative) Urine Glucose (UA) (Negative) Urine Ketones (Negative) Urine Blood (Negative) Urine Nitrite (Negative) Urine Bilirubin (Negative) Urine Urobilinogen (<2.0) mg/dL Ur Leukocyte Esterase (Negative) Urine RBC (0-5) /hpf Urine WBC (0-5) /hpf Ur Squamous Epith Cells (0-4) /hpf Amorphous Sediment (None) /hpf Hyaline Casts (0-2) /lpf Urine Mucus (None) /hpf - Radiology Data Radiology results: report reviewed (Computed tomography scan abdomen and pelvis reveals no acute abnormality. Previous bariatric surgery. No change from prior exam.) Disposition Clinical Impression: Abdominal pain Disposition: HOME SELF-CARE Condition: Stable Instructions (If sedation given, give patient instructions): Abdominal Pain (ED) Additional Instructions: Please do follow-up with your primary care physician in the next day or 2 for recheck. Please also follow-up with your surgeon. Return for fever, not tolerating fluids, increased pain, worsening or changing symptoms or any other concerns. Prescriptions have been sent to pharmacy and Aracelis Ruiz Prescriptions: Famotidine [Pepcid] 20 mg PO BID #30 tablet Ondansetron Odt [Zofran Odt] 4 mg PO Q8HR PRN #10 tab PRN Reason: Nausea Is patient prescribed a controlled substance at d/c from ED?: No Referrals: Molly Delgadillo MD [Primary Care Provider] - 1-2 days Time of Disposition: 16:11
[2021-10-29 14:00] LABS: Basophils % (A) 1 %; Eosinophils # (A) 0.1 k/uL (0-0.7); Eosinophils % (A) 3 %; HGB 11.5 gm/dL (11.4-16.0); Lymphocytes # (A) 0.8 k/uL (1.0-4.8); Lymphocytes % (A) 20 %; MCH 29.3 pg (25.0-35.0); MCHC 32.9 g/dL (31.0-37.0); MCV 89.1 fL (80.0-100.0); Mean Platelet Volume 7.1; Monocytes # (A) 0.3 k/uL (0-1.0); Monocytes % (A) 8 %; Neutrophils # (A) 2.5 k/uL (1.3-7.7); Neutrophils % (A) 64 %; Platelet Count 248 k/uL (150-450); RBC 3.93 m/uL (3.80-5.40); RDW 13.9 % (11.5-15.5); WBC 3.9 k/uL (3.8-10.6)
[2021-10-29 14:09] LABS: Amorphous Sediment,Urine Occasional /hpf; Appearance,Urine Cloudy (Clear); Bilirubin,Urine Negative (Negative); Blood,Urine Negative (Negative); Color,Urine Light Yellow; Glucose,Urine (UA) Negative (Negative); Hyaline Casts,Urine 5 /lpf (0-2); Ketones,Urine Negative (Negative); Leukocyte Esterase,Urine Small (Negative); Mucus,Urine Rare /hpf; Nitrite,Urine Negative (Negative); Protein,Urine Negative (Negative); RBC,Urine 1 /hpf (0-5); Specific Gravity,Urine 1.008 (1.001-1.035); Squamous Epithelial Cell,Urine 1 /hpf (0-4); Urobilinogen,Urine <2.0 mg/dL (<2.0); WBC,Urine 2 /hpf (0-5)
[2021-10-29 14:10] LABS: ALT 11 U/L (4-34); AST 26 U/L (14-36); African American GFR (CKD) >90 (>60 ml/min/1.73 sqM); Albumin 3.6 g/dL (3.5-5.0); Alkaline Phosphatase 58 U/L (38-126); Amylase 84 U/L (30-110); Anion Gap 6 mmol/L; Blood Urea Nitrogen 15 mg/dL (7-17); Calcium 8.8 mg/dL (8.4-10.2); Carbon Dioxide 24 mmol/L (22-30); Chloride 109 mmol/L (98-107); Glucose 86 mg/dL (74-99); Lipase 164 U/L (23-300); Non-African American GFR(CKD) 86 (>60 ml/min/1.73 sqM); Potassium 4.4 mmol/L (3.5-5.1); Sodium 139 mmol/L (137-145); Total Bilirubin 0.6 mg/dL (0.2-1.3); Total Protein 6.4 g/dL (6.3-8.2)
[2021-10-29 14:11] LABS: Partial Thromboplastin Time 26.1 sec (22.0-30.0); Prothrombin Time 10.3 sec (9.0-12.0)
[2021-10-29] MEDS ORDERED: HYDROmorphone 0.5 MG/0.5 ML SYRINGE IVP STA (14:44)
--- NOTE | 2021-10-29 14:47 | CT ---
EXAMINATION TYPE: CT abdomen pelvis w con DATE OF EXAM: 10/29/2021 COMPARISON: 06/17/2018 HISTORY: Abdominal pain, nausea and diarrhea x1 week. CT DLP: 732.8 mGycm Automated exposure control for dose reduction was used. CONTRAST: Performed with IV Contrast, patient injected with 100ml mL of Isovue 370. Lung bases are clear of infiltrate. There is no pleural effusion. Heart is enlarged. There is no linda cardial effusion. There are numerous cysts throughout the liver that measure up to 5 cm. Spleen is in tact. There are numerous surgical clips at the stomach. There is no evidence of pancreatic mass. Ther e are clips from cholecystectomy. There is stable mild ectasia of the biliary tree. There is no adren al mass. There are bilateral renal cortical cysts up to 3 cm. There is no hydronephrosis. Kidneys angela w satisfactory contrast opacification. Delayed images show normal renal excretion. Ureters are not di lated. There is no retroperitoneal adenopathy. The bladder distends smoothly. There is no inguinal he rnia. There is no free fluid in the pelvis. There is no mesenteric edema. There is no ascites or free air. There is no bowel obstruction. There i s no evidence of a pelvic mass. There is hysterectomy. Appendix is posterior and appears normal. The lumbar vertebrae have normal alignment. There is no compression fracture. Disc spaces are fairly normal. The bony pelvis appears intact. The proximal femurs and hip joints are intact. Sacroiliac joints are intact. IMPRESSION: No acute abnormality of the abdomen and pelvis. Previous gastric bariatric surgery. Hepatic and renal cysts. Moderate cardiomegaly. No significant change compared to old exam.
[2021-10-29 16:32] VITALS: BP 123/64; PULSE 55
== END 2021-10-29 16:31 | disposition home or self-care (01) ==
LOC: EC 12:13
DX: R10.9 Unspecified abdominal pain (principal); I48.91 Unspecified atrial fibrillation; I10 Essential (primary) hypertension; F32.A Depression, unspecified; Z87.891 Personal history of nicotine dependence; Z86.73 Personal history of transient ischemic attack (TIA), and cerebral infarction without residual deficits; Z72.89 Other problems related to lifestyle
CPT/HCPCS: 36415; 93005; 80053; 82150; 83690; 84484; 85025; 85610; 85730; 81001; 74177; 99284; 96374; 96375 ×2; 96361 ×3; J2405; C9113; J1170; Q9967

== ENCOUNTER 2022-02-07 15:45 | Emergency (ER) | payer MEDICARE ==
[2022-02-07 15:54] VITALS: BP 137/67; PULSE 56; RESP 16; TEMP 97.3
[2022-02-07] MEDS ORDERED: ONDANSETRON 4 MG/2 ML VIAL IVP STA (16:15)
[2022-02-07] MEDS ORDERED: SODIUM CHLORIDE 0.9% 1,000 ML IV STA (16:15)
[2022-02-07] MEDS ORDERED: diphenhydrAMINE 50 MG/ML 1 ML VIAL IVP STA (16:17)
[2022-02-07] MEDS ORDERED: ACETAMINOPHEN TAB 500 MG TAB PO STA (16:17)
[2022-02-07 16:29] LABS: Albumin 3.3 g/dL (3.5-5.0); Magnesium 1.9 mg/dL (1.6-2.3); Potassium 3.4 mmol/L (3.5-5.1); Total Bilirubin 0.6 mg/dL (0.2-1.3); Total Protein 5.8 g/dL (6.3-8.2)
[2022-02-07 16:31] LABS: Basophils % (A) 1 %; Eosinophils # (A) 0.1 k/uL (0-0.7); Eosinophils % (A) 3 %; HCT 31.9 % (34.0-46.0); HGB 10.4 gm/dL (11.4-16.0); Hypochromasia Slight; Lymphocytes # (A) 0.4 k/uL (1.0-4.8); Lymphocytes % (A) 18 %; MCH 29.3 pg (25.0-35.0); MCHC 32.5 g/dL (31.0-37.0); MCV 89.9 fL (80.0-100.0); Mean Platelet Volume 7.4; Monocytes # (A) 0.2 k/uL (0-1.0); Monocytes % (A) 9 %; Neutrophils # (A) 1.6 k/uL (1.3-7.7); Neutrophils % (A) 66 %; Platelet Count 197 k/uL (150-450); RBC 3.54 m/uL (3.80-5.40); WBC 2.5 k/uL (3.8-10.6)
[2022-02-07 16:41] LABS: INR 1.1 (<1.2); Partial Thromboplastin Time 29.6 sec (22.0-30.0); Prothrombin Time 11.7 sec (9.0-12.0)
--- NOTE | 2022-02-07 17:09 | ED ---
General Adult HPI - General Chief complaint: Weakness Stated complaint: Weakness Time Seen by Provider: 02/07/22 16:06 Source: patient, EMS, RN notes reviewed, old records reviewed Mode of arrival: EMS Limitations: no limitations - History of Present Illness Initial comments: Patient is a 81-year-old female with past medical history remarkable for atrial flutter ablation, prior TIA, hypertension presents emergency Department complaining of a four-day history of generalized weakness, nonbloody diarrhea. States is getting worse. Also states the weakness is worse today, and she felt like she may have had heart palpitations which resolved at home. Does have a history of atrial fibrillation. Wanted to be evaluated. Did receive a Jaimee-en-Y gastric bypass surgery 3 years ago. Denies any abdominal pain. Denies any chest pain, shortness of breath. Denies any urinary complaints including dysuria or hematuria. Endorses no nausea or vomiting. His no other acute complaints at this time. Was vaccinated for COVID-19 and received a booster. No known sick contacts. Denies any cough. Denies any fevers. Is concerned she may be dehydrated.Denies falls. Endorses a mild normal headache, in a belt-like distribution around her head. - Related Data Home Medications Medication Instructions Recorded Confirmed Dabigatran [Pradaxa] 150 mg PO BID 03/18/15 02/07/22 Furosemide [Lasix] 20 mg PO BID 05/20/18 02/07/22 Metoprolol Tartrate [Lopressor] 12.5 mg PO BID 05/20/18 02/07/22 Citalopram Hydrobromide 40 mg PO DAILY 06/17/18 02/07/22 [Citalopram HBr] Alendronate Sodium [Fosamax] 70 mg PO MO 12/09/20 02/07/22 Cholecalciferol [Vitamin D3 (25 25 mcg PO DAILY 12/09/20 02/07/22 Mcg = 1000 Iu)] Clopidogrel [Plavix] 75 mg PO HS 12/09/20 02/07/22 Levothyroxine Sodium [Synthroid] 150 mcg PO DAILY 12/09/20 02/07/22 Temazepam [Restoril] 30 mg PO HS PRN 12/09/20 02/07/22 Digoxin 125 mcg PO HS 02/07/22 02/07/22 Liquid Collagen 1 dose PO DAILY 02/07/22 02/07/22 Pravastatin Sodium [Pravachol] 20 mg PO HS 02/07/22 02/07/22 Previous Rx's Medication Instructions Recorded Ondansetron Odt [Zofran Odt] 4 mg PO Q8HR PRN #10 tab 10/29/21 Allergies Allergy/AdvReac Type Severity Reaction Status Date / Time morphine AdvReac Nausea Verified 02/07/22 17:02 Review of Systems ROS Statement: Those systems with pertinent positive or pertinent negative responses have been documented in the HPI. Review of Systems: CONST: Denies fever EYES: Denies blurry vision ENT: Denies nasal congestion C/V: Denies Chest pain RESP: Denies shortness of breath GI: Denies abdominal pain : Denies dysuria SKIN: Denies rash. MSK: Denies joint pain. NEURO: Endorses headache ROS Other: All systems not noted in ROS Statement are negative. Past Medical History Past Medical History: Atrial Fibrillation, CVA/TIA, Hypertension Additional Past Medical History / Comment(s): Mitral Regurgitation. Vlave replacement 3 years ago. 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 Patient states she was having migraine headaches and was told to see a neurologist, it was then he found the TIAs. 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 Past Anesthesia/Blood Transfusion Reactions: No Reported Reaction Past Psychological History: Depression Smoking Status: Former smoker Past Alcohol Use History: Rare Past Drug Use History: None Reported - Past Family History Mother Family Medical History: Cancer Additional Family Medical History / Comment(s): Partial colon removed due to cancer, migraines, allergies. Sister(s) Family Medical History: Cancer Additional Family Medical History / Comment(s): Sister Lise: lymphoma, past smoker, breast cysts that she had fluid removed. General Exam - General Exam Comments Initial Comments: General: Appears in no acute distress. HEAD: Normal with no signs of head trauma. EYES: PERRLA, EOMI, conjunctiva normal, no discharge. ENT: Hearing grossly intact, normal oropharynx. Dry mucous membranes RESPIRATORY: Clear breath sounds bilaterally. No wheezes, rales, or rhonchi. C/V: Irregular rate and rhythm. S1 and S2 auscultated, no edema, peripheral pulses 2+ and intact throughout ABD: Abd is soft, nontender, nondistended EXT: Normal range of motion, no obvious deformity SKIN: No rashes or lesions observed on exposed skin. NEURO: Alert and oriented 4. No focal sensory strength deficits. NIH is 0. GCS is 15. 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 She has no other acute complaints at this time. We will treat her headache as well as provided with fluid hydration. We will obtain infectious labs including COVID- 19 swab. She was in agreement with this plan. EKG shows known atrial fibrillation with no signs of acute ischemia. Laboratory studies are remarkable for a leukopenia with a WBC count of 2.5. Patient has a normocytic anemia with a hemoglobin of 10.5, which is chronic for her. Laboratory studies are remarkable for mild hypokalemia at 3.4 which will be replenished. Troponin is negative.Covid is negative. Lactic acid is negative. Remainder of the labs are unremarkable except for mild hypokalemia which is replenished. Chest x-ray shows no signs of acute cardiopulmonary process. There are COPD changes. Possible small pleural effusion. No respiratory symptoms. EKG showed no signs of acute ischemia. On reevaluation, vital signs remain within normal limits. Urinalysis is still pending at this time. I did discuss with her that she likely has a viral enteritis causing her diarrhea. She is otherwise asymptomatic. Labs showed mild dehydration. I believe it is safe for her to be discharged home with close follow-up with her PCP. Family as well as the patient were in agreement this plan. She is tolerating oral intake. Strict return precautions were discussed. We both decided not to obtain a urinalysis that she is asymptomatic in terms of urinary complaints. I instructed the patient to follow up with their PCP in the next 3 days. . I explained that the patient should return to the emergency department if they experience any worsening symptoms. Strict return precautions were discussed with the patient. The patient expressed understanding of these instructions. I answered all questions that the patient had. The patient was discharged home in good condition with their prescriptions and follow up information. - Lab Data Result diagrams: 02/07/22 16:00 02/07/22 16:00 Lab Results 02/07/22 02/07/22 02/07/22 Range/Units 16:00 16:00 16:00 WBC 2.5 L (3.8-10.6) k/uL RBC 3.54 L (3.80-5.40) m/uL Hgb 10.4 L (11.4-16.0) gm/dL Hct 31.9 L (34.0-46.0) % MCV 89.9 (80.0-100.0) fL MCH 29.3 (25.0-35.0) pg MCHC 32.5 (31.0-37.0) g/dL RDW 14.0 (11.5-15.5) % Plt Count 197 (150-450) k/uL MPV 7.4 Neutrophils % 66 % Lymphocytes % 18 % Monocytes % 9 % Eosinophils % 3 % Basophils % 1 % Neutrophils # 1.6 (1.3-7.7) k/uL Lymphocytes # 0.4 L (1.0-4.8) k/uL Monocytes # 0.2 (0-1.0) k/uL Eosinophils # 0.1 (0-0.7) k/uL Basophils # 0.0 (0-0.2) k/uL Hypochromasia Slight PT 11.7 (9.0-12.0) sec INR 1.1 (<1.2) APTT 29.6 (22.0-30.0) sec Sodium 140 (137-145) mmol/L Potassium 3.4 L (3.5-5.1) mmol/L Chloride 107 (98-107) mmol/L Carbon Dioxide 30 (22-30) mmol/L Anion Gap 3 mmol/L BUN 14 (7-17) mg/dL Creatinine 0.75 (0.52-1.04) mg/dL Est GFR (CKD-EPI)AfAm 88 (>60 ml/min/1.73 sqM) Est GFR (CKD-EPI)NonAf 76 (>60 ml/min/1.73 sqM) Glucose 82 (74-99) mg/dL Plasma Lactic Acid Mg (0.7-2.0) mmol/L Calcium 8.0 L (8.4-10.2) mg/dL Magnesium 1.9 (1.6-2.3) mg/dL Total Bilirubin 0.6 (0.2-1.3) mg/dL AST 29 (14-36) U/L ALT 15 (4-34) U/L Alkaline Phosphatase 57 (38-126) U/L Troponin I (0.000-0.034) ng/mL Total Protein 5.8 L (6.3-8.2) g/dL Albumin 3.3 L (3.5-5.0) g/dL Coronavirus (PCR) (Not Detectd) 02/07/22 02/07/22 02/07/22 Range/Units 16:00 17:00 17:20 WBC (3.8-10.6) k/uL RBC (3.80-5.40) m/uL Hgb (11.4-16.0) gm/dL Hct (34.0-46.0) % MCV (80.0-100.0) fL MCH (25.0-35.0) pg MCHC (31.0-37.0) g/dL RDW (11.5-15.5) % Plt Count (150-450) k/uL MPV Neutrophils % % Lymphocytes % % Monocytes % % Eosinophils % % Basophils % % Neutrophils # (1.3-7.7) k/uL Lymphocytes # (1.0-4.8) k/uL Monocytes # (0-1.0) k/uL Eosinophils # (0-0.7) k/uL Basophils # (0-0.2) k/uL Hypochromasia PT (9.0-12.0) sec INR (<1.2) APTT (22.0-30.0) sec Sodium (137-145) mmol/L Potassium (3.5-5.1) mmol/L Chloride (98-107) mmol/L Carbon Dioxide (22-30) mmol/L Anion Gap mmol/L BUN (7-17) mg/dL Creatinine (0.52-1.04) mg/dL Est GFR (CKD-EPI)AfAm (>60 ml/min/1.73 sqM) Est GFR (CKD-EPI)NonAf (>60 ml/min/1.73 sqM) Glucose (74-99) mg/dL Plasma Lactic Acid Mg 0.9 (0.7-2.0) mmol/L Calcium (8.4-10.2) mg/dL Magnesium (1.6-2.3) mg/dL Total Bilirubin (0.2-1.3) mg/dL AST (14-36) U/L ALT (4-34) U/L Alkaline Phosphatase (38-126) U/L Troponin I <0.012 (0.000-0.034) ng/mL Total Protein (6.3-8.2) g/dL Albumin (3.5-5.0) g/dL Coronavirus (PCR) Not Detected (Not Detectd) - EKG Data -: EKG Interpreted by Me EKG Comments: 12-lead Electrocardiogram Interpretation Note EKG was reviewed and interpreted by myself. 12-lead ECG performed at 1602is interpreted by me as revealing atrial fibrillation at a rate of 54 beats per minute. [place] is normal. PA interval is unobtainable, QRS duration is 96 ms, QTc is 409 ms.. There were no ST or T wave abnormalities to suggest myocardial ischemia or injury. R wave progression across the precordium was satisfactory. By my interpretation this EKG is non-diagnostic for acute ischemia. Disposition Clinical Impression: Diarrhea, Dehydration, History of atrial fibrillation Disposition: HOME SELF-CARE Condition: Good Is patient prescribed a controlled substance at d/c from ED?: No Referrals: Molly Delgadillo MD [Primary Care Provider] - 1-2 days Time of Disposition: 17:56
--- NOTE | 2022-02-07 17:21 | XR ---
EXAMINATION TYPE: XR chest 2V DATE OF EXAM: 02/07/2022 4:58 PM COMPARISON: Chest radiographs from 12/09/2020 TECHNIQUE: XR chest 2V Frontal and lateral views of the chest. CLINICAL INDICATION:Female, 81 years old with history of Weakness; FINDINGS: Lungs/Pleura: There is no evidence of focal consolidation, or pneumothorax. Small pleural effusion suggested layering posteriorly. Pulmonary vascularity: Unremarkable. Heart/mediastinum: Cardiomediastinal silhouette is enlarged and stable.. Valvular repair changes to t he heart are present. Musculoskeletal: No acute osseous pathology. Midline sternotomy wires are noted and stable. IMPRESSION: 1. No acute cardiopulmonary disease/process. 2. Stable cardiomegaly with small pleural effusion suggested posteriorly. 3. COPD changes.
[2022-02-07] MEDS ORDERED: POTASSIUM CHLORIDE ER 20 MEQ TAB.ER PO STA (17:56)
== END 2022-02-07 18:13 | disposition home or self-care (01) ==
LOC: EC 15:45
DX: E86.0 Dehydration (principal); R19.7 Diarrhea, unspecified; I48.91 Unspecified atrial fibrillation; D64.9 Anemia, unspecified; E87.6 Hypokalemia; I10 Essential (primary) hypertension; F32.A Depression, unspecified; Z20.822 Contact with and (suspected) exposure to COVID-19; Z87.891 Personal history of nicotine dependence; Z79.01 Long term (current) use of anticoagulants; Z79.02 Long term (current) use of antithrombotics/antiplatelets; Z86.73 Personal history of transient ischemic attack (TIA), and cerebral infarction without residual deficits; Z79.899 Other long term (current) drug therapy
CPT/HCPCS: 36415; 93005; 80053; 83605; 83735; 84484; 85025; 85610; 85730; 87040; 87635; 71046; 99285; 96374; 96375; 96361; J1200; J2405

== ENCOUNTER 2022-04-12 10:56 | Emergency (ER) | payer MEDICARE ==
[2022-04-12 12:40] VITALS: RESP 18; TEMP 97.5
[2022-04-12 13:16] LABS: Appearance,Urine Clear (Clear); Bilirubin,Urine Negative (Negative); Blood,Urine Negative (Negative); Color,Urine Yellow; Glucose,Urine (UA) Negative (Negative); Ketones,Urine Negative (Negative); Leukocyte Esterase,Urine Moderate (Negative); Mucus,Urine Rare /hpf; Nitrite,Urine Negative (Negative); Protein,Urine Negative (Negative); Squamous Epithelial Cell,Urine <1 /hpf (0-4); Urobilinogen,Urine <2.0 mg/dL (<2.0); WBC,Urine 2 /hpf (0-5)
--- NOTE | 2022-04-12 16:43 | ED ---
Abdominal Pain HPI - General Chief Complaint: Abdominal Pain Stated Complaint: abd & back pain Time Seen by Provider: 04/12/22 15:57 Source: patient, RN notes reviewed Mode of arrival: ambulatory Limitations: no limitations - History of Present Illness Initial Comments: Patient is a 81-year-old female presents to the emergency room with complaints of abdominal pain primarily to the lower quadrant with radiation to her back. She takes Senokot every day but does note that she has had an increase in constipation over the last 3 days but reports that her bowel movements are of looser consistency than normal. She denies any overt diarrhea, abdominal cramping, fevers, chills, vomiting, dysuria, hematuria, flank pain without abdominal pain, blood or mucus in her stool, or any unintentional weight changes. She reports a history of pancreatitis which is her abdominal pain felt similar to this event but more severe previously. She has past medical history significant for obesity with bariatric surgery approximately 19 years ago and reports several years after that she has began developing idiopathic pancreatitis bouts. She has a history of CVA, atrial fibrillation on anticoagulation, hypertension, CAD and CHF. She denies any recent CHF exacerbations or focal neuro deficits. She denies any other complaints or concerns this time. - Related Data Home Medications Medication Instructions Recorded Confirmed Dabigatran [Pradaxa] 150 mg PO BID 03/18/15 02/07/22 Furosemide [Lasix] 20 mg PO BID 05/20/18 02/07/22 Metoprolol Tartrate [Lopressor] 12.5 mg PO BID 05/20/18 02/07/22 Citalopram Hydrobromide 40 mg PO DAILY 06/17/18 02/07/22 [Citalopram HBr] Alendronate Sodium [Fosamax] 70 mg PO MO 12/09/20 02/07/22 Cholecalciferol [Vitamin D3 (25 25 mcg PO DAILY 12/09/20 02/07/22 Mcg = 1000 Iu)] Clopidogrel [Plavix] 75 mg PO HS 12/09/20 02/07/22 Levothyroxine Sodium [Synthroid] 150 mcg PO DAILY 12/09/20 02/07/22 Temazepam [Restoril] 30 mg PO HS PRN 12/09/20 02/07/22 Digoxin 125 mcg PO HS 02/07/22 02/07/22 Liquid Collagen 1 dose PO DAILY 02/07/22 02/07/22 Pravastatin Sodium [Pravachol] 20 mg PO HS 02/07/22 02/07/22 Previous Rx's Medication Instructions Recorded Ondansetron Odt [Zofran Odt] 4 mg PO Q8HR PRN #10 tab 10/29/21 Cephalexin [Keflex] 500 mg PO Q12HR 1 Days #2 cap 04/12/22 HYDROcodone/APAP 5-325MG [[place] 1 tab PO Q6HR PRN 3 Days #12 tab 04/12/22 5-325] Allergies Allergy/AdvReac Type Severity Reaction Status Date / Time morphine AdvReac Nausea Verified 04/12/22 12:40 Review of Systems ROS Statement: Those systems with pertinent positive or pertinent negative responses have been documented in the HPI. ROS Other: All systems not noted in ROS Statement are negative. Past Medical History Past Medical History: Atrial Fibrillation, Heart Failure, CVA/TIA, Hypertension Additional Past Medical History / Comment(s): Mitral Regurgitation. Vlave r eplacement 3 years ago. 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 Patient states she was having migraine headaches and was told to see a neurologist, it was then he found the TIAs. 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 Past Anesthesia/Blood Transfusion Reactions: No Reported Reaction Past Psychological History: Depression Smoking Status: Former smoker Past Alcohol Use History: Rare Past Drug Use History: None Reported - Past Family History Mother Family Medical History: Cancer Additional Family Medical History / Comment(s): Partial colon removed due to cancer, migraines, allergies. Sister(s) Family Medical History: Cancer Additional Family Medical History / Comment(s): Sister Lise: lymphoma, past smoker, breast cysts that she had fluid removed. General Exam Limitations: no limitations Course Vital Signs 04/12/22 04/12/22 12:35 18:53 Temperature 97.5 F L Pulse Rate 82 57 L Respiratory 18 18 Rate Blood Pressure 129/93 114/68 O2 Sat by Pulse 100 98 Oximetry - Reevaluation(s) Reevaluation #1: CBC and CMP stable. Amylase and lipase normal. CT of the abdomen without acute processes. Will discharge with treatment for urinary tract infection. Also discussed with patient concerns regarding potential for early's symptoms of pancreatitis advised to eat blander diet and fluids avoiding foods with high sugar content and alcohol. She has 1 remaining [place] at home for pain becomes severe. Will give prescription for a short course of [place] to utilize as needed if severe pain occurs. Discussed signs and symptoms outlined for return parameters. Time: 19:12 Medical Decision Making - Medical Decision Making Urinalysis completed while she was in the waiting room, will repeat with culture given slight mucus and low amount of leukocytosis without evidence of bacteria or blood. Will check CMP, amylase, lipase, CBC along with CT of the abdomen due to left upper quadrant tenderness on exam. Will await lab values prior to starting IV fluids in the setting of CHF history. She is complaining of mild pain which responded well to half tablet of [place] during the night last night which she eventually required the entire tab of. She denies eating anything stronger than [place] at this time. Will give one-time dose of [place]. - Lab Data Result diagrams: 04/12/22 17:00 04/12/22 17:00 Lab Results 04/12/22 04/12/22 04/12/22 Range/Units 12:49 17:00 17:00 WBC 2.7 L (3.8-10.6) k/uL RBC 3.92 (3.80-5.40) m/uL Hgb 11.4 (11.4-16.0) gm/dL Hct 34.7 (34.0-46.0) % MCV 88.6 (80.0-100.0) fL MCH 29.1 (25.0-35.0) pg MCHC 32.9 (31.0-37.0) g/dL RDW 13.6 (11.5-15.5) % Plt Count 207 (150-450) k/uL MPV 8.0 Neutrophils % 56 % Lymphocytes % 29 % Monocytes % 8 % Eosinophils % 3 % Basophils % 1 % Neutrophils # 1.5 (1.3-7.7) k/uL Lymphocytes # 0.8 L (1.0-4.8) k/uL Monocytes # 0.2 (0-1.0) k/uL Eosinophils # 0.1 (0-0.7) k/uL Basophils # 0.0 (0-0.2) k/uL Hypochromasia Slight PT (9.0-12.0) sec INR (<1.2) APTT (22.0-30.0) sec Sodium 139 (137-145) mmol/L Potassium 4.2 (3.5-5.1) mmol/L Chloride 105 (98-107) mmol/L Carbon Dioxide 28 (22-30) mmol/L Anion Gap 6 mmol/L BUN 13 (7-17) mg/dL Creatinine 0.71 (0.52-1.04) mg/dL Est GFR (CKD-EPI)AfAm >90 (>60 ml/min/1.73 sqM) Est GFR (CKD-EPI)NonAf 82 (>60 ml/min/1.73 sqM) Glucose 75 (74-99) mg/dL Calcium 8.6 (8.4-10.2) mg/dL Total Bilirubin 0.5 (0.2-1.3) mg/dL AST 31 (14-36) U/L ALT 18 (4-34) U/L Alkaline Phosphatase 65 (38-126) U/L Total Protein 6.5 (6.3-8.2) g/dL Albumin 3.9 (3.5-5.0) g/dL Amylase 99 (30-110) U/L Lipase 120 (23-300) U/L Urine Color Yellow Urine Appearance Clear (Clear) Urine pH 7.0 (5.0-8.0) Ur Specific Dows 1.010 (1.001-1.035) Urine Protein Negative (Negative) Urine Glucose (UA) Negative (Negative) Urine Ketones Negative (Negative) Urine Blood Negative (Negative) Urine Nitrite Negative (Negative) Urine Bilirubin Negative (Negative) Urine Urobilinogen <2.0 (<2.0) mg/dL Ur Leukocyte Esterase Moderate H (Negative) Urine WBC 2 (0-5) /hpf Ur Squamous Epith Cells <1 (0-4) /hpf Urine Mucus Rare H (None) /hpf 04/12/22 Range/Units 17:00 WBC (3.8-10.6) k/uL RBC (3.80-5.40) m/uL Hgb (11.4-16.0) gm/dL Hct (34.0-46.0) % MCV (80.0-100.0) fL MCH (25.0-35.0) pg MCHC (31.0-37.0) g/dL RDW (11.5-15.5) % Plt Count (150-450) k/uL MPV Neutrophils % % Lymphocytes % % Monocytes % % Eosinophils % % Basophils % % Neutrophils # (1.3-7.7) k/uL Lymphocytes # (1.0-4.8) k/uL Monocytes # (0-1.0) k/uL Eosinophils # (0-0.7) k/uL Basophils # (0-0.2) k/uL Hypochromasia PT 10.7 (9.0-12.0) sec INR 1.0 (<1.2) APTT 27.6 (22.0-30.0) sec Sodium (137-145) mmol/L Potassium (3.5-5.1) mmol/L Chloride (98-107) mmol/L Carbon Dioxide (22-30) mmol/L Anion Gap mmol/L BUN (7-17) mg/dL Creatinine (0.52-1.04) mg/dL Est GFR (CKD-EPI)AfAm (>60 ml/min/1.73 sqM) Est GFR (CKD-EPI)NonAf (>60 ml/min/1.73 sqM) Glucose (74-99) mg/dL Calcium (8.4-10.2) mg/dL Total Bilirubin (0.2-1.3) mg/dL AST (14-36) U/L ALT (4-34) U/L Alkaline Phosphatase (38-126) U/L Total Protein (6.3-8.2) g/dL Albumin (3.5-5.0) g/dL Amylase (30-110) U/L Lipase (23-300) U/L Urine Color Urine Appearance (Clear) Urine pH (5.0-8.0) Ur Specific Dows (1.001-1.035) Urine Protein (Negative) Urine Glucose (UA) (Negative) Urine Ketones (Negative) Urine Blood (Negative) Urine Nitrite (Negative) Urine Bilirubin (Negative) Urine Urobilinogen (<2.0) mg/dL Ur Leukocyte Esterase (Negative) Urine WBC (0-5) /hpf Ur Squamous Epith Cells (0-4) /hpf Urine Mucus (None) /hpf - Radiology Data Radiology results: report reviewed, image reviewed CT of the abdomen pelvis with contrast shows cardiomegaly. Multiple hepatic cysts. No dilated ducts. Renal cortical cysts no evidence of pancreatic mass. No signs pancreatitis. No adverse change compared to old exam. Disposition Clinical Impression: UTI (urinary tract infection), Acute abdomen Disposition: HOME SELF-CARE Condition: Stable Instructions (If sedation given, give patient instructions): Urinary Tract Infection in Women (ED), Pancreatitis (ED) Prescriptions: Cephalexin [Keflex] 500 mg PO Q12HR 1 Days #2 cap HYDROcodone/APAP 5-325MG [[place] 5-325] 1 tab PO Q6HR PRN 3 Days #12 tab PRN Reason: Pain Is patient prescribed a controlled substance at d/c from ED?: Yes When asked, does pt state using other controlled substances?: Yes If prescribed controlled substance>3 days was MAPS reviewed?: Prescribed <3 Days If opioid is for acute pain is fill amount 7 days or less?: Yes Referrals: Molly Delgadillo MD [Primary Care Provider] - 1-2 days
[2022-04-12] MEDS ORDERED: HYDROcodone/APAP 5-325MG 1 EACH TAB PO STA (16:59)
[2022-04-12 17:09] LABS: Basophils % (A) 1 %; Eosinophils # (A) 0.1 k/uL (0-0.7); Eosinophils % (A) 3 %; HCT 34.7 % (34.0-46.0); HGB 11.4 gm/dL (11.4-16.0); Hypochromasia Slight; Lymphocytes # (A) 0.8 k/uL (1.0-4.8); Lymphocytes % (A) 29 %; MCH 29.1 pg (25.0-35.0); MCHC 32.9 g/dL (31.0-37.0); MCV 88.6 fL (80.0-100.0); Monocytes # (A) 0.2 k/uL (0-1.0); Monocytes % (A) 8 %; Neutrophils # (A) 1.5 k/uL (1.3-7.7); Neutrophils % (A) 56 %; Platelet Count 207 k/uL (150-450); RBC 3.92 m/uL (3.80-5.40); RDW 13.6 % (11.5-15.5); WBC 2.7 k/uL (3.8-10.6)
[2022-04-12 17:20] LABS: Partial Thromboplastin Time 27.6 sec (22.0-30.0); Prothrombin Time 10.7 sec (9.0-12.0)
[2022-04-12 17:27] LABS: ALT 18 U/L (4-34); AST 31 U/L (14-36); African American GFR (CKD) >90 (>60 ml/min/1.73 sqM); Albumin 3.9 g/dL (3.5-5.0); Alkaline Phosphatase 65 U/L (38-126); Amylase 99 U/L (30-110); Anion Gap 6 mmol/L; Blood Urea Nitrogen 13 mg/dL (7-17); Calcium 8.6 mg/dL (8.4-10.2); Carbon Dioxide 28 mmol/L (22-30); Chloride 105 mmol/L (98-107); Glucose 75 mg/dL (74-99); Lipase 120 U/L (23-300); Non-African American GFR(CKD) 82 (>60 ml/min/1.73 sqM); Potassium 4.2 mmol/L (3.5-5.1); Sodium 139 mmol/L (137-145); Total Bilirubin 0.5 mg/dL (0.2-1.3); Total Protein 6.5 g/dL (6.3-8.2)
--- NOTE | 2022-04-12 18:32 | CT ---
EXAMINATION TYPE: CT abdomen pelvis w con DATE OF EXAM: 04/12/2022 COMPARISON: 10/29/2021 HISTORY: Abdominal pain, hx pancreatitis CT DLP: 752.1 mGycm Automated exposure control for dose reduction was used. CONTRAST: Performed with IV Contrast, patient injected with 100 mL of Isovue 300. Images obtained with IV contrast from the diaphragm to the floor the pelvis. There is mild subsegmental atelectasis at the lung bases. Heart is enlarged. No pericardial effusion. No pleural effusion. There are multiple cystic areas throughout the liver and these measure up to 4.5 cm. Spleen is intact . There is previous gastric surgery. I see no definite pancreatic mass. The common bile duct measures 9 mm. Gallbladder appears absent. There are clips from cholecystectomy. There is no adrenal mass. Kidneys show satisfactory contrast opacification. There is no hydronephrosi s. There is 2.5 cm cortical cyst upper pole left kidney. There is similar 3 cm cortical cyst lateral right kidney. There is some mild fullness of the left upper collecting system. Delayed images show fa irly normal renal excretion. Ureters not significantly dilated. Urinary bladder is almost empty. No i nguinal hernia. No free fluid in the pelvis. No pelvic mass. There is no mesenteric edema. No ascites or free air. No evidence of a bowel obstruction. The lumbar vertebrae have normal alignment. No compression fracture. The bony pelvis is intact. The h ip joints are intact. IMPRESSION: Cardiomegaly. Multiple hepatic cysts. No dilated ducts. Renal cortical cysts. No evidence of pancreat ic mass. No sign of pancreatitis. No adverse change compared to old exam.
[2022-04-12 20:20] VITALS: BP 115/70; PULSE 68
== END 2022-04-12 20:23 | disposition home or self-care (01) ==
LOC: EC 10:56
DX: N39.0 Urinary tract infection, site not specified (principal); I11.0 Hypertensive heart disease with heart failure; I50.9 Heart failure, unspecified; I48.91 Unspecified atrial fibrillation; Z86.73 Personal history of transient ischemic attack (TIA), and cerebral infarction without residual deficits; Z87.891 Personal history of nicotine dependence; Z88.5 Allergy status to narcotic agent; Z79.899 Other long term (current) drug therapy; Z79.02 Long term (current) use of antithrombotics/antiplatelets
CPT/HCPCS: 36415; 80053; 82150; 83690; 85025; 85610; 85730; 81001; 74177; 99284; Q9967

== ENCOUNTER 2022-09-02 17:12 | Emergency (ER) | payer MEDICARE ==
[2022-09-02 17:23] VITALS: TEMP 97.9
[2022-09-02 17:23] LABS: Glucose,Whole Blood 82 mg/dL (70-110)
[2022-09-02 17:29] LABS: Glucose,Whole Blood 90 mg/dL (70-110)
[2022-09-02 18:05] LABS: Partial Thromboplastin Time 24.9 sec (22.0-30.0); Prothrombin Time 10.6 sec (9.0-12.0)
[2022-09-02 18:06] LABS: Calcium 8.9 mg/dL (8.4-10.2); Magnesium 2.4 mg/dL (1.6-2.3); Potassium 4.6 mmol/L (3.5-5.1)
[2022-09-02 18:14] LABS: Basophils % (A) 1 %; Eosinophils # (A) 0.2 k/uL (0-0.7); Eosinophils % (A) 4 %; HCT 32.2 % (34.0-46.0); HGB 10.7 gm/dL (11.4-16.0); Hypochromasia Slight; Lymphocytes # (A) 1.2 k/uL (1.0-4.8); Lymphocytes % (A) 30 %; MCHC 33.1 g/dL (31.0-37.0); MCV 84.7 fL (80.0-100.0); Mean Platelet Volume 7.8; Monocytes # (A) 0.4 k/uL (0-1.0); Monocytes % (A) 9 %; Neutrophils # (A) 2.1 k/uL (1.3-7.7); Neutrophils % (A) 52 %; Platelet Count 261 k/uL (150-450); RDW 13.9 % (11.5-15.5)
--- NOTE | 2022-09-02 18:19 | XR ---
EXAMINATION TYPE: XR chest 2V DATE OF EXAM: 09/02/2022 COMPARISON: 02/07/2022 HISTORY: Weakness TECHNIQUE: 3 views FINDINGS: There is no heart failure nor Confluent pneumonic infiltrate. There are sternal wires. Cost ophrenic angles are clear. The bony thorax is intact. IMPRESSION: No active cardiopulmonary disease. No adverse change.
[2022-09-02 18:34] LABS: Appearance,Urine Clear (Clear); Bilirubin,Urine Negative (Negative); Blood,Urine Negative (Negative); Color,Urine Colorless; Glucose,Urine (UA) Negative (Negative); Ketones,Urine Negative (Negative); Leukocyte Esterase,Urine Negative (Negative); Nitrite,Urine Negative (Negative); Protein,Urine Negative (Negative); Specific Gravity,Urine 1.004 (1.001-1.035); Urobilinogen,Urine <2.0 mg/dL (<2.0)
--- NOTE | 2022-09-02 19:23 | CT ---
EXAMINATION TYPE: CT brain wo con DATE OF EXAM: 09/02/2022 COMPARISON: 12/09/2020 HISTORY: Weakness, possible TIA CT DLP: 1497.1 mGycm Automated exposure control for dose reduction was used. Images obtained of the brain without contrast. There is cerebral cortical atrophy. There is no mass effect or midline shift. No sign of intracranial hemorrhage. Calvarium is intact. There is normal aeration of the mastoid sinuses. There are small hy podensities in the internal capsule bilaterally. IMPRESSION: Cerebral atrophy. Chronic small vessel ischemia. Small lacunar infarcts in the internal capsule bilat erally. No significant change.
--- NOTE | 2022-09-02 19:49 | CT ---
EXAMINATION TYPE: CT angio head neck DATE OF EXAM: 09/02/2022 COMPARISON: 12/10/2020 HISTORY: Weakness, possible TIA CT DLP: 1497.1 mGycm Automated exposure control for dose reduction was used. CONTRAST: Performed with IV Contrast, patient injected with 65cc mL of Isovue 370. Images obtained from the aortic arch to the vertex of the brain with the IV contrast. There are 3-D p ost processed images. There is normal branching pattern of the great vessels on the aortic arch. There is bilateral arteria l flow in the subclavian arteries. There is arterial flow in the common internal and external carotid arteries bilaterally. There is dominick rly wide patency of the carotid bifurcations. There is arterial flow in both vertebral arteries. Ther e is arterial flow in the vertebrobasilar artery system. No evidence of carotid or vertebral artery a neurysm or dissection. There is arterial flow in the anterior middle and posterior cerebral arteries bilaterally. No mass ef fect. No evidence of intracranial aneurysm or neovascularity. There is normal enhancement of the venous sinuses. No evidence of intracranial arterial stenosis. IMPRESSION: Negative CT angiogram of the neck. Negative CT angiogram of the brain. No adverse change compared to old exam.
--- NOTE | 2022-09-02 20:09 | ED ---
General Adult HPI - General Chief complaint: Neuro Symptoms/Deficit Stated complaint: Poss TIA Time Seen by Provider: 09/02/22 17:24 Source: patient, RN notes reviewed, old records reviewed Mode of arrival: EMS Limitations: no limitations - History of Present Illness Initial comments: Patient is an 82-year-old female with past medical history remarkable for TIA, atrial fibrillation, heart failure, hypertension, and received Botox injections yesterday presents over concern for an episode of dizziness and headache earlier today. States she almost fell out of her chair when this happened. Since this occurred prior to arrival. She currently has asymptomatic at this time. I was notified by nursing staff that there is concern for possible right-sided facial droop which is not present. Smile is symmetrical. She has no acute complaints at this time. Denies chest pain, shortness breath, abdominal pain, nausea, vomiting. Denies any lightheadedness, blurry vision. Denies any speech abnormalities. His no other acute complaints at this time. Presents for further evaluation. Is concerned that she may be having a TIA she states she somewhat felt like this previously when she had one. - Related Data Home Medications Medication Instructions Recorded Confirmed Dabigatran [Pradaxa] 150 mg PO BID 03/18/15 02/07/22 Furosemide [Lasix] 20 mg PO BID 05/20/18 02/07/22 Metoprolol Tartrate [Lopressor] 12.5 mg PO BID 05/20/18 02/07/22 Citalopram Hydrobromide 40 mg PO DAILY 06/17/18 02/07/22 [Citalopram HBr] Alendronate Sodium [Fosamax] 70 mg PO MO 12/09/20 02/07/22 Cholecalciferol [Vitamin D3 (25 25 mcg PO DAILY 12/09/20 02/07/22 Mcg = 1000 Iu)] Clopidogrel [Plavix] 75 mg PO HS 12/09/20 02/07/22 Levothyroxine Sodium [Synthroid] 150 mcg PO DAILY 12/09/20 02/07/22 Temazepam [Restoril] 30 mg PO HS PRN 12/09/20 02/07/22 Digoxin 125 mcg PO HS 02/07/22 02/07/22 Liquid Collagen 1 dose PO DAILY 02/07/22 02/07/22 Pravastatin Sodium [Pravachol] 20 mg PO HS 02/07/22 02/07/22 Previous Rx's Medication Instructions Recorded Ondansetron Odt [Zofran Odt] 4 mg PO Q8HR PRN #10 tab 10/29/21 Cephalexin [Keflex] 500 mg PO Q12HR 1 Days #2 cap 04/12/22 HYDROcodone/APAP 5-325MG [[place] 1 tab PO Q6HR PRN 3 Days #12 tab 04/12/22 5-325] Allergies Allergy/AdvReac Type Severity Reaction Status Date / Time morphine AdvReac Nausea Verified 09/02/22 17:23 Review of Systems ROS Statement: Those systems with pertinent positive or pertinent negative responses have been documented in the HPI. Review of Systems: CONST: Denies fever EYES: Denies blurry vision ENT: Denies nasal congestion C/V: Denies Chest pain RESP: Denies shortness of breath GI: Denies abdominal pain : Denies dysuria SKIN: Denies rash. MSK: Denies joint pain. NEURO: Denies headache ROS Other: All systems not noted in ROS Statement are negative. Past Medical History Past Medical History: Atrial Fibrillation, Heart Failure, CVA/TIA, Hypertension Additional Past Medical History / Comment(s): Mitral Regurgitation. Vlave replacement 3 years ago. 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 Patient states she was having migraine headaches and was told to see a neurologist, it was then he found the TIAs. 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 Past Anesthesia/Blood Transfusion Reactions: No Reported Reaction Past Psychological History: Depression Smoking Status: Former smoker Past Alcohol Use History: Rare Past Drug Use History: None Reported - Past Family History Mother Family Medical History: Cancer Additional Family Medical History / Comment(s): Partial colon removed due to cancer, migraines, allergies. Sister(s) Family Medical History: Cancer Additional Family Medical History / Comment(s): Sister Lise: lymphoma, past smoker, breast cysts that she had fluid removed. General Exam - General Exam Comments Initial Comments: General: Appears in no acute distress. HEAD: Normal with no signs of head trauma. EYES: PERRLA, EOMI, conjunctiva normal, no discharge. ENT: Hearing grossly intact, normal oropharynx. RESPIRATORY: Clear breath sounds bilaterally. No wheezes, rales, or rhonchi. C/V: Regular rate and rhythm. S1 and S2 auscultated, no edema, peripheral pulses 2+ and intact throughout ABD: Abd is soft, nontender, nondistended EXT: Normal range of motion, no obvious deformity SKIN: No rashes or lesions observed on exposed skin. NEURO: Alert and oriented x 4. Cranial nerves II-XII intact. No focal sensory or strength deficits. NIH of 0. GCS of 15. Limitations: no limitations Course Vital Signs 09/02/22 09/02/22 17:18 19:01 Temperature 97.9 F Pulse Rate 77 77 Respiratory 20 18 Rate Blood Pressure 139/98 142/89 O2 Sat by Pulse 100 98 Oximetry Medical Decision Making - Medical Decision Making Based on the patient's presentation and physical exam, I have low concern for TIA or CVA at this time the patient is concerned due to similar symptoms in the past that proceeded to TIA. Therefore we'll obtain CT imaging of the brain. We will obtain a broad workup as well. She is asymptomatic at this time. Vital signs within acceptable limits. She was in agreement this plan. EKG showed no signs of acute ischemia. Laboratory studies were remarkable for a chronic normocytic anemia which appears stable. Troponin is undetectable. Urinalysis within normal limits. Otherwise no acute findings on blood work. CT brain is interpreted by myself reveals no acute intracranial process. There are old lacunar infarcts that are chronic. No changes when compared to prior EKGs. ETT angiogram revealed no acute intracranial process. Chest x-ray reveals no acute cardiopulmonary process. There is no evidence of infiltrate, sternal wires are present, no acute bony trending process. On reevaluation, patient remains asymptomatic. Vital signs within acceptable limits. We discussed the results of her imaging and labs.I believe it is safe for her to be discharged home. She was in agreement this plan. Strict return precautions were discussed. I instructed the patient to follow up with their PCP in the next 1-3 days. I explained that the patient should return to the emergency department if they experience any worsening symptoms. Strict return precautions were discussed with the patient. The patient expressed understanding of these instructions. I answered all questions that the patient had. The patient was discharged home in good condition with their prescriptions and follow up information. - Lab Data Result diagrams: 09/02/22 17:34 09/02/22 17:34 Lab Results 09/02/22 09/02/22 09/02/22 Range/Units 17:23 17:26 17:34 WBC 4.0 (3.8-10.6) k/uL RBC 3.80 (3.80-5.40) m/uL Hgb 10.7 L (11.4-16.0) gm/dL Hct 32.2 L (34.0-46.0) % MCV 84.7 (80.0-100.0) fL MCH 28.0 (25.0-35.0) pg MCHC 33.1 (31.0-37.0) g/dL RDW 13.9 (11.5-15.5) % Plt Count 261 (150-450) k/uL MPV 7.8 Neutrophils % 52 % Lymphocytes % 30 % Monocytes % 9 % Eosinophils % 4 % Basophils % 1 % Neutrophils # 2.1 (1.3-7.7) k/uL Lymphocytes # 1.2 (1.0-4.8) k/uL Monocytes # 0.4 (0-1.0) k/uL Eosinophils # 0.2 (0-0.7) k/uL Basophils # 0.0 (0-0.2) k/uL Hypochromasia Slight PT (9.0-12.0) sec INR (<1.2) APTT (22.0-30.0) sec Sodium (137-145) mmol/L Potassium (3.5-5.1) mmol/L Chloride (98-107) mmol/L Carbon Dioxide (22-30) mmol/L Anion Gap mmol/L BUN (7-17) mg/dL Creatinine (0.52-1.04) mg/dL Est GFR (CKD-EPI)AfAm (>60 ml/min/1.73 sqM) Est GFR (CKD-EPI)NonAf (>60 ml/min/1.73 sqM) Glucose (74-99) mg/dL POC Glucose (mg/dL) 82 90 (70-110) mg/dL POC Glu Track Mechanic Lebron Clement Eric Calcium (8.4-10.2) mg/dL Magnesium (1.6-2.3) mg/dL Troponin I (0.000-0.034) ng/mL Urine Color Urine Appearance (Clear) Urine pH (5.0-8.0) Ur Specific [place] (1.001-1.035) Urine Protein (Negative) Urine Glucose (UA) (Negative) Urine Ketones (Negative) Urine Blood (Negative) Urine Nitrite (Negative) Urine Bilirubin (Negative) Urine Urobilinogen (<2.0) mg/dL Ur Leukocyte Esterase (Negative) 09/02/22 09/02/22 09/02/22 Range/Units 17:34 17:34 17:34 WBC (3.8-10.6) k/uL RBC (3.80-5.40) m/uL Hgb (11.4-16.0) gm/dL Hct (34.0-46.0) % MCV (80.0-100.0) fL MCH (25.0-35.0) pg MCHC (31.0-37.0) g/dL RDW (11.5-15.5) % Plt Count (150-450) k/uL MPV Neutrophils % % Lymphocytes % % Monocytes % % Eosinophils % % Basophils % % Neutrophils # (1.3-7.7) k/uL Lymphocytes # (1.0-4.8) k/uL Monocytes # (0-1.0) k/uL Eosinophils # (0-0.7) k/uL Basophils # (0-0.2) k/uL Hypochromasia PT 10.6 (9.0-12.0) sec INR 1.0 (<1.2) APTT 24.9 (22.0-30.0) sec Sodium 139 (137-145) mmol/L Potassium 4.6 (3.5-5.1) mmol/L Chloride 103 (98-107) mmol/L Carbon Dioxide 28 (22-30) mmol/L Anion Gap 8 mmol/L BUN 16 (7-17) mg/dL Creatinine 0.81 (0.52-1.04) mg/dL Est GFR (CKD-EPI)AfAm 80 (>60 ml/min/1.73 sqM) Est GFR (CKD-EPI)NonAf 69 (>60 ml/min/1.73 sqM) Glucose 75 (74-99) mg/dL POC Glucose (mg/dL) (70-110) mg/dL POC Glu Track Mechanic ID Calcium 8.9 (8.4-10.2) mg/dL Magnesium 2.4 H (1.6-2.3) mg/dL Troponin I <0.012 (0.000-0.034) ng/mL Urine Color Urine Appearance (Clear) Urine pH (5.0-8.0) Ur Specific [place] (1.001-1.035) Urine Protein (Negative) Urine Glucose (UA) (Negative) Urine Ketones (Negative) Urine Blood (Negative) Urine Nitrite (Negative) Urine Bilirubin (Negative) Urine Urobilinogen (<2.0) mg/dL Ur Leukocyte Esterase (Negative) 09/02/22 Range/Units 18:29 WBC (3.8-10.6) k/uL RBC (3.80-5.40) m/uL Hgb (11.4-16.0) gm/dL Hct (34.0-46.0) % MCV (80.0-100.0) fL MCH (25.0-35.0) pg MCHC (31.0-37.0) g/dL RDW (11.5-15.5) % Plt Count (150-450) k/uL MPV Neutrophils % % Lymphocytes % % Monocytes % % Eosinophils % % Basophils % % Neutrophils # (1.3-7.7) k/uL Lymphocytes # (1.0-4.8) k/uL Monocytes # (0-1.0) k/uL Eosinophils # (0-0.7) k/uL Basophils # (0-0.2) k/uL Hypochromasia PT (9.0-12.0) sec INR (<1.2) APTT (22.0-30.0) sec Sodium (137-145) mmol/L Potassium (3.5-5.1) mmol/L Chloride (98-107) mmol/L Carbon Dioxide (22-30) mmol/L Anion Gap mmol/L BUN (7-17) mg/dL Creatinine (0.52-1.04) mg/dL Est GFR (CKD-EPI)AfAm (>60 ml/min/1.73 sqM) Est GFR (CKD-EPI)NonAf (>60 ml/min/1.73 sqM) Glucose (74-99) mg/dL POC Glucose (mg/dL) (70-110) mg/dL POC Glu Track Mechanic ID Calcium (8.4-10.2) mg/dL Magnesium (1.6-2.3) mg/dL Troponin I (0.000-0.034) ng/mL Urine Color Colorless Urine Appearance Clear (Clear) Urine pH 8.0 (5.0-8.0) Ur Specific [place] 1.004 (1.001-1.035) Urine Protein Negative (Negative) Urine Glucose (UA) Negative (Negative) Urine Ketones Negative (Negative) Urine Blood Negative (Negative) Urine Nitrite Negative (Negative) Urine Bilirubin Negative (Negative) Urine Urobilinogen <2.0 (<2.0) mg/dL Ur Leukocyte Esterase Negative (Negative) - EKG Data -: EKG Interpreted by Me EKG Comments: 12-lead Electrocardiogram Interpretation Note EKG was reviewed and interpreted by myself. 12-lead ECG performed at 1807 is interpreted by me as revealing atrial fibrillation with aberrant conduction at a rate of 74 beats per minute. [place] is normal. QRS duration is 94 ms, QTc is 432 ms. PVC is present.. There were no ST or T wave abnormalities to suggest myocardial ischemia or injury. R wave progression across the precordium was satisfactory. By my interpretation this EKG is non-diagnostic for acute ischemia. When compared with EKG from January 2022, no change. Disposition Clinical Impression: Headache Disposition: HOME SELF-CARE Condition: Good Instructions (If sedation given, give patient instructions): Acute Headache (ED) Is patient prescribed a controlled substance at d/c from ED?: No Referrals: Molly Delgadillo MD [Primary Care Provider] - 1-2 days Time of Disposition: 20:00
[2022-09-02 21:18] VITALS: BP 134/90; PULSE 75; RESP 15
== END 2022-09-02 21:18 | disposition home or self-care (01) ==
LOC: EC 17:12
DX: R51.9 Headache, unspecified (principal); I48.91 Unspecified atrial fibrillation; I11.0 Hypertensive heart disease with heart failure; I50.9 Heart failure, unspecified; Z87.891 Personal history of nicotine dependence; Z88.5 Allergy status to narcotic agent; Z79.899 Other long term (current) drug therapy
CPT/HCPCS: 36415; 80048; 83735; 84484; 85025; 85610; 85730; 81003; 71046; 70496; 70450; 70498; 99285; Q9967

== ENCOUNTER → 2023-03-13 | Outpatient (CLI) | payer MEDICARE ==
--- NOTE | 2023-03-13 17:52 | US ---
EXAMINATION TYPE: US st tissue neck DATE OF EXAM: 03/13/2023 COMPARISON: NONE CLINICAL INDICATION: Female, 82 years old with history of R59.0 LOCALIZED ENLARGED LYMPH NODES; Pt st ates pain and palpable lump left lateral neck FINDINGS: Corn [employer]eder notes:Small, normal appearing lymph node= 0.9 x 0.3 x 0.3 cm, otherwise no other abnorm ality visualized left lateral neck IMPRESSION: Unable to identify a discrete abnormality along the patient's palpable left lateral neck. Recommend c linical follow-up. If any enlarging lump or suspicious clinical features develop, contrast-enhanced C T soft tissue neck can be considered.
== END | disposition home or self-care (01) ==
LOC: RADUSWWP 15:08
PROVIDERS: ATTEND Family Medicine
DX: R59.0 Localized enlarged lymph nodes (principal)
CPT/HCPCS: 76536

== ENCOUNTER → 2023-08-01 | Outpatient (CLI) | payer MEDICARE ==
--- NOTE | 2023-08-01 10:50 | BD ---
EXAMINATION TYPE: Axial Bone Density DATE OF EXAM: 08/01/2023 CLINICAL HISTORY: 83 years old Female. ICD-10 CODE: M85.80 DISORDER OF BONE Height: 63 in Weight: 148 lbs RISK FACTORS HISTORY OF: Active: yes Postmenopausal woman: total hysterectomy age 60 MEDICATIONS: Thyroid Medications: yes Which medication: Synthroid How Lon+ years Osteoporosis Medications: yes Which medication: Actonel How Lon years Additional Medications: vit d, calcium, blood thinner, blood pressure ,water pill, EXAM MEASUREMENTS: Bone mineral densitometry was performed using the [employer] System. Bone mineral density as measured about the Lumbar spine is: ----- L1-L4(G/cm2): 1.094 T Score Values are as follows: ----- L1: -0.9 ----- L2: -1.4 ----- L3: -0.8 ----- L4: -0.2 ----- L1-L4: -0.7 Z Score Values are as follows: ----- L1: 0.9 ----- L2: 0.4 ----- L3: 1.0 ----- L4: 1.6 ----- L1-L4: 1.1 Bone mineral density has: Increased 7.9% since study of: 08/25/2019 Bone mineral density about the R hip (g/cm2): 0.803 Bone mineral density about the L hip (g/cm2): 0.769 T Score values are as follows: -----R Neck: -2.0 -----L Neck: -2.1 -----R Total: -1.6 -----L Total: -1.9 Z Score values are as follows: -----R Neck: 0.1 -----L Neck: 0.0 -----R Total: 0.4 -----L Total: 0.1 Bone mineral density has: Increased 4.1% since study of: 08/25/2019 FRAX%s: The graph provided illustrates a 16.9% chance for a major osteoporotic fx and a 5.4% chance f or the hips probability for fx in 10 years time. IMPRESSION: Osteopenia (T Score between -2.5 and -1). There is slightly increased risk of fracture and the patient may be considered for treatment. Re-Screen 2-5 years. NOTE: T-SCORE=SD OF THE YOUNG ADULT MEAN.
--- NOTE | 2023-08-01 14:46 | FL ---
ESOPHOGRAM. HISTORY: Dysphagia Esophagram was performed per the air contrast technique. The patient swallowed barium and effervesce nt crystals without difficulty or delay. Esophageal peristalsis and motility appear to be within normal limits. There is a large Zenker's diverticulum noted which extends from the C4-5 level through the bottom of C6. No hiatal hernia seen. Changes of previous gastric bypass surgery. Subsequently single contrast cervical esophagram was performed which fails demonstrate evidence for a spiration penetration or mass. IMPRESSION: 1. here is a large Zenker's diverticulum noted which extends from the C4-5 level through the bottom o f C6.
--- NOTE | 2023-08-02 10:58 | MM ---
Reason for Exam: Screening (asymptomatic). Last mammogram was performed 3 year(s) and 11 month(s) ago. Patient History: Menarche at age 18. First Full-Term at age 21. Postmenopausal. Patient has history of breast feeding. , Benign Excisional Biopsy. Sister had breast cancer. Risk Values: Kelli 5 year model risk: 3.2%. NCI Lifetime model risk: 4.6%. Prior Study Comparison: 07/18/2010 Screening Mammogram, [facility]. 08/25/2019 Bilateral Screening Mammogram, [facility]. Tissue Density: The breast tissue is heterogeneously dense. This may lower the sensitivity of mammography. Findings: Analyzed By CAD. There is no suspicious group of microcalcifications or new suspicious mass in either breast. Overall Assessment: Benign, BI-RAD 2 Management: Screening Mammogram of both breasts in 1 year. . Patient should continue monthly self-breast exams. A clinical breast exam by your physician is recommended on an annual basis. This exam should not preclude additional follow-up of suspicious palpable abnormalities. Note on Kelli scores and lifetime risk: 1. A Kelli score greater than 3% is considered moderate risk. If this is the case, consider specialist referral to assess eligibility for a risk reducing agent. 2. If overall lifetime risk for the development of breast cancer is 20% or higher, the patient may qualify for future screening with alternating mammogram and breast MRI. Electronically signed and approved by: Gavin Sanchez M.D. Radiologis
== END | disposition home or self-care (01) ==
LOC: RADMAMWWP 09:16
PROVIDERS: ATTEND Family Medicine
DX: Z12.31 Encounter for screening mammogram for malignant neoplasm of breast (principal); M85.89 Other specified disorders of bone density and structure, multiple sites; K22.5 Diverticulum of esophagus, acquired; R19.8 Other specified symptoms and signs involving the digestive system and abdomen; Z78.0 Asymptomatic menopausal state; Z80.3 Family history of malignant neoplasm of breast
CPT/HCPCS: 74220; 77063; 77067; 77080

== ENCOUNTER 2023-09-25 09:48 | Emergency (ER) | payer MEDICARE ==
--- NOTE | 2023-09-25 10:20 | ED ---
URI HPI - General Chief Complaint: Upper Respiratory Infection Stated Complaint: COVID Symptoms Time Seen by Provider: 09/25/23 09:53 Source: patient, EMS, RN notes reviewed Mode of arrival: EMS Limitations: no limitations - History of Present Illness Initial Comments: 83-year-old female presents emergency Department with chief complaint of cough and cold symptoms. Her recently tested positive for COVID-19. She states that she's had fever or chills bodyaches nasal congestion cough is productive. Patient has no prior lung disease - Related Data Home Medications Medication Instructions Recorded Confirmed Dabigatran [Pradaxa] 150 mg PO BID 03/18/15 02/07/22 Furosemide [Lasix] 20 mg PO BID 05/20/18 02/07/22 Metoprolol Tartrate [Lopressor] 12.5 mg PO BID 05/20/18 02/07/22 Citalopram Hydrobromide 40 mg PO DAILY 06/17/18 02/07/22 [Citalopram HBr] Alendronate Sodium [Fosamax] 70 mg PO MO 12/09/20 02/07/22 Cholecalciferol [Vitamin D3 (25 25 mcg PO DAILY 12/09/20 02/07/22 Mcg = 1000 Iu)] Clopidogrel [Plavix] 75 mg PO HS 12/09/20 02/07/22 Levothyroxine Sodium [Synthroid] 150 mcg PO DAILY 12/09/20 02/07/22 Temazepam [Restoril] 30 mg PO HS PRN 12/09/20 02/07/22 Digoxin 125 mcg PO HS 02/07/22 02/07/22 Liquid Collagen 1 dose PO DAILY 02/07/22 02/07/22 Pravastatin Sodium [Pravachol] 20 mg PO HS 02/07/22 02/07/22 Previous Rx's Medication Instructions Recorded Ondansetron Odt [Zofran Odt] 4 mg PO Q8HR PRN #10 tab 10/29/21 Cephalexin [Keflex] 500 mg PO Q12HR 1 Days #2 cap 04/12/22 HYDROcodone/APAP 5-325MG [[place] 1 tab PO Q6HR PRN 3 Days #12 tab 04/12/22 5-325] Allergies Allergy/AdvReac Type Severity Reaction Status Date / Time morphine AdvReac Nausea Verified 09/25/23 09:56 Review of Systems ROS Statement: Those systems with pertinent positive or pertinent negative responses have been documented in the HPI. ROS Other: All systems not noted in ROS Statement are negative. Past Medical History Past Medical History: Atrial Fibrillation, Heart Failure, CVA/TIA, Hypertension Additional Past Medical History / Comment(s): Mitral Regurgitation. Amarilys replac ement 3 years ago. 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 Patient states she was having migraine headaches and was told to see a neurologist, it was then he found the TIAs. 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 Past Anesthesia/Blood Transfusion Reactions: No Reported Reaction Past Psychological History: Depression Smoking Status: Former smoker Past Alcohol Use History: Rare Past Drug Use History: None Reported - Past Family History Mother Family Medical History: Cancer Additional Family Medical History / Comment(s): Partial colon removed due to cancer, migraines, allergies. Sister(s) Family Medical History: Cancer Additional Family Medical History / Comment(s): Sister Lise: lymphoma, past smoker, breast cysts that she had fluid removed. General Exam Limitations: no limitations General appearance: alert, in no apparent distress Head exam: Present: atraumatic, normocephalic, normal inspection Eye exam: Present: normal appearance, PERRL, EOMI. Absent: scleral icterus, conjunctival injection, periorbital swelling ENT exam: Present: normal exam, mucous membranes moist Neck exam: Present: normal inspection, full ROM. Absent: tenderness, meningismus, lymphadenopathy Respiratory exam: Present: normal lung sounds bilaterally. Absent: respiratory distress, wheezes, rales, rhonchi, stridor Cardiovascular Exam: Present: regular rate, normal rhythm, normal heart sounds. Absent: systolic murmur, diastolic murmur, rubs, gallop, clicks Neurological exam: Present: alert Skin exam: Present: warm, dry, intact, normal color. Absent: rash Course Vital Signs 09/25/23 09/25/23 09/25/23 09:53 10:17 11:35 Temperature 99 F 98.4 F Pulse Rate 66 98 Respiratory 22 18 16 Rate Blood Pressure 133/61 100/69 O2 Sat by Pulse 98 99 Oximetry Medical Decision Making - Medical Decision Making Was pt. sent in by a medical professional or institution (SANTHOSH Ruiz, SHOP SERVICE TECHNICIAN, urgent care, hospital, or fpc...) When possible be specific @ -No Did you speak to anyone other than the patient for history (EMS, parent, family, police, friend...)? What history was obtained from this source @ -No Did you review nursing and triage notes (agree or disagree)? Why? @ -I reviewed and agree with nursing and triage notes Were old charts reviewed (outside hosp., previous admission, EMS record, old EKG, old radiological studies, urgent care reports/EKG's, fpc records)? Report findings @ -No old charts were reviewed Differential Diagnosis (chest pain, altered mental status, abdominal pain women, abdominal pain men, vaginal bleeding, weakness, fever, dyspnea, syncope, headache, dizziness, GI bleed, back pain, seizure, CVA, palpatations, mental health, musculoskeletal)? @ -nCOVID 19, RSV, influenza, pneumonia, acute bronchitis, URI, this list is not all inclusiveable EKG interpreted by me (3pts min.). @ -None X-rays interpreted by me (1pt min.). @ -Chest x-ray shows no acute pulmonary process CT interpreted by me (1pt min.). @ -None done U/S interpreted by me (1pt. min.). @ -None done What testing was considered but not performed or refused? (CT, X-rays, U/S, labs)? Why? @ -None What meds were considered but not given or refused? Why? @ -None Did you discuss the management of the patient with other professionals (professionals i.e. , SANTHOSH, SHOP SERVICE TECHNICIAN, lab, RT, psych nurse, social psychologist, divorce lawyer, teacher, fire control officer, case investigator)? Give summary @ -No Was smoking cessation discussed for >3mins.? @ -No Was critical care preformed (if so, how long)? @ -No Were there social determinants of health that impacted care today? How? (Homelessness, low income, unemployed, alcoholism, drug addiction, transportation, low edu. Level, literacy, decrease access to med. care, senior care, rehab)? @ -No Was there de-escalation of care discussed even if they declined (Discuss DNR or withdrawal of care, Hospice)? DNR status @ -No What co-morbidities impacted this encounter? (DM, HTN, Smoking, COPD, CAD, Cancer, CVA, ARF, Chemo, Hep., AIDS, mental health diagnosis, sleep apnea, morbid obesity)? @ -None Was patient admitted / discharged? Hospital course, mention meds given and route, prescriptions, significant lab abnormalities, going to OR and other pertinent info. @ -Discharge patient is positive for COVID-19 patient's well-appearing, no signs just vital are stable patient is discharged in stable condition with supportive treatment Undiagnosed new problem with uncertain prognosis? @ -No Drug Therapy requiring intensive monitoring for toxicity (Heparin, Nitro, Insulin, Cardizem)? @ -No Were any procedures done? @ -No Diagnosis/symptom? @ -COVID-19 Acute, or Chronic, or Acute on Chronic? @ -Acute Uncomplicated (without systemic symptoms) or Complicated (systemic symptoms)? @ -Uncomplicated Side effects of treatment? @ -No Exacerbation, Progression, or Severe Exacerbation? @ -No Poses a threat to life or bodily function? How? (Chest pain, [place], [place], pneumonia, PE, COPD, DKA, ARF, appy, cholecystitis, CVA, Diverticulitis, Homicidal, Suicidal, threat to staff... and all critical care pts) @ -No - Lab Data Lab Results 09/25/23 Range/Units 10:13 Influenza Type A (PCR) Not Detected (Not Detectd) Influenza Type B (PCR) Not Detected (Not Detectd) RSV (PCR) Not Detected (Not Detectd) SARS-CoV-2 (PCR) Detected A (Not Detectd) Disposition Clinical Impression: COVID-19 Disposition: HOME SELF-CARE Condition: Stable Instructions (If sedation given, give patient instructions): COVID-19 (Coronavirus Disease 2019) (ED) Additional Instructions: Please return to the Emergency Department if symptoms worsen or any other concerns. Is patient prescribed a controlled substance at d/c from ED?: No Referrals: Molly Delgadillo MD [Primary Care Provider] - 1-2 days Time of Disposition: 11:27
--- NOTE | 2023-09-25 10:39 | XR ---
EXAMINATION TYPE: XR chest 2V DATE OF EXAM: 09/25/2023 COMPARISON: 09/02/2022 TECHNIQUE: PA and lateral views submitted. HISTORY: Cough FINDINGS: The lungs are clear and there is no pneumothorax, pleural effusion, or focal pneumonia. Heart size normal and no overt failure. Osseous structures demonstrate hypertrophic and degenerative changes of the spine. Poststernotomy changes and cardiac valve replacement surgery. Hyperinflation suggests COPD and there are surgical clips in the abdomen. Diffuse osteopenia and AC joint arthropathy. IMPRESSION: 1. No acute process. Correlate for COPD.
[2023-09-25 11:52] VITALS: BP 100/69; PULSE 98; RESP 16; TEMP 98.4
== END 2023-09-25 11:37 | disposition home or self-care (01) ==
LOC: EC 09:48
DX: U07.1 COVID-19 (principal); I48.91 Unspecified atrial fibrillation; I11.0 Hypertensive heart disease with heart failure; I50.9 Heart failure, unspecified; F32.A Depression, unspecified; Z87.891 Personal history of nicotine dependence; Z86.73 Personal history of transient ischemic attack (TIA), and cerebral infarction without residual deficits; Z79.01 Long term (current) use of anticoagulants; Z79.899 Other long term (current) drug therapy; Z88.5 Allergy status to narcotic agent
CPT/HCPCS: 71046; 87636; 99284

== ENCOUNTER 2023-10-08 16:41 | Emergency (ER) | payer MEDICARE ==
[2023-10-08 16:50] VITALS: TEMP 98.3
--- NOTE | 2023-10-08 17:51 | ED ---
Head Injury HPI - General Chief complaint: Head Injury Stated complaint: Head Injury Time Seen by Provider: 10/08/23 16:54 Source: patient, EMS Mode of arrival: EMS Limitations: no limitations - History of Present Illness MD Complaint: head injury Onset/Timin -: hour(s) Mechanism of Injury: other Location: occipital Loss of Consciousness: no Place: home Radiation: none Severity: moderate Quality: aching Consistency: constant Provoking factors: none known Other Injuries: none Context: on other anticoagulant (Pradaxa and Plavix) - Related Data Home Medications Medication Instructions Recorded Confirmed Dabigatran [Pradaxa] 150 mg PO BID 03/18/15 02/07/22 Furosemide [Lasix] 20 mg PO BID 05/20/18 02/07/22 Metoprolol Tartrate [Lopressor] 12.5 mg PO BID 05/20/18 02/07/22 Citalopram Hydrobromide 40 mg PO DAILY 06/17/18 02/07/22 [Citalopram HBr] Alendronate Sodium [Fosamax] 70 mg PO MO 12/09/20 02/07/22 Cholecalciferol [Vitamin D3 (25 25 mcg PO DAILY 12/09/20 02/07/22 Mcg = 1000 Iu)] Clopidogrel [Plavix] 75 mg PO HS 12/09/20 02/07/22 Levothyroxine Sodium [Synthroid] 150 mcg PO DAILY 12/09/20 02/07/22 Temazepam [Restoril] 30 mg PO HS PRN 12/09/20 02/07/22 Digoxin 125 mcg PO HS 02/07/22 02/07/22 Liquid Collagen 1 dose PO DAILY 02/07/22 02/07/22 Pravastatin Sodium [Pravachol] 20 mg PO HS 02/07/22 02/07/22 Previous Rx's Medication Instructions Recorded Ondansetron Odt [Zofran Odt] 4 mg PO Q8HR PRN #10 tab 10/29/21 Cephalexin [Keflex] 500 mg PO Q12HR 1 Days #2 cap 04/12/22 HYDROcodone/APAP 5-325MG [[place] 1 tab PO Q6HR PRN 3 Days #12 tab 04/12/22 5-325] Allergies/Adverse reactions: Allergies Allergy/AdvReac Type Severity Reaction Status Date / Time morphine AdvReac Nausea Verified 10/08/23 16:50 Review of Systems ROS Statement: Those systems with pertinent positive or pertinent negative responses have been documented in the HPI. ROS Other: All systems not noted in ROS Statement are negative. Constitutional: Denies: fever, chills Respiratory: Denies: cough, dyspnea Cardiovascular: Denies: chest pain, palpitations, edema Gastrointestinal: Denies: abdominal pain, nausea, vomiting Genitourinary: Denies: dysuria, frequency, hematuria Musculoskeletal: Denies: back pain Skin: Denies: rash Neurological: Reports: headache. Denies: weakness, numbness, confusion Hematological/Lymphatic: Reports: as per HPI Past Medical History Past Medical History: Atrial Fibrillation, Heart Failure, CVA/TIA, Hypertension Additional Past Medical History / Comment(s): Mitral Regurgitation. Vlave replacement 3 years ago. 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 Patient states she was having migraine headaches and was told to see a neurologist, it was then he found the TIAs. 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 Past Anesthesia/Blood Transfusion Reactions: No Reported Reaction Past Psychological History: Depression Smoking Status: Former smoker Past Alcohol Use History: Rare Past Drug Use History: None Reported - Past Family History Mother Family Medical History: Cancer Additional Family Medical History / Comment(s): Partial colon removed due to cancer, migraines, allergies. Sister(s) Family Medical History: Cancer Additional Family Medical History / Comment(s): Sister Lise: lymphoma, past smoker, breast cysts that she had fluid removed. General Exam Limitations: no limitations General appearance: alert, in no apparent distress Head exam: Present: normocephalic, other (The patient does have small-sized occipital hematoma with moderate tenderness. No obvious deformity.) Eye exam: Present: normal appearance, PERRL, EOMI. Absent: scleral icterus, conjunctival injection, nystagmus ENT exam: Present: normal oropharynx Neck exam: Present: normal inspection, full ROM. Absent: tenderness Respiratory exam: Present: normal lung sounds bilaterally. Absent: respiratory distress, wheezes, rales, rhonchi, stridor, chest wall tenderness, accessory muscle use Cardiovascular Exam: Present: normal rhythm, irregular rhythm, normal heart sounds. Absent: systolic murmur, diastolic murmur, rubs, gallop GI/Abdominal exam: Present: soft. Absent: distended, tenderness, guarding, rebound Extremities exam: Present: normal inspection, normal capillary refill. Absent: pedal edema, calf tenderness Back exam: Present: normal inspection. Absent: CVA tenderness (R), CVA tenderness (L), vertebral tenderness Neurological exam: Present: alert, oriented X3, CN II-XII intact. Absent: motor sensory deficit Skin exam: Present: warm, dry, intact, normal color. Absent: rash Course Vital Signs 10/08/23 10/08/23 16:45 20:00 Temperature 98.3 F 98.3 F Pulse Rate 58 L 64 Respiratory 18 16 Rate Blood Pressure 140/74 138/68 O2 Sat by Pulse 100 100 Oximetry Medical Decision Making - Medical Decision Making The patient had computed tomography scan of the brain that I interpreted as negative for acute bony injury or cranial hemorrhage Was pt. sent in by a medical professional or institution (SANTHOSH Ruiz, RAFTSMAN, urgent care, hospital, or senior living...) When possible be specific @ -[No] Did you speak to anyone other than the patient for history (EMS, parent, family, police, friend...)? What history was obtained from this source @ -[No] Did you review nursing and triage notes (agree or disagree)? Why? @ -[I reviewed and agree with nursing and triage notes] Were old charts reviewed (outside hosp., previous admission, EMS record, old EKG, old radiological studies, urgent care reports/EKG's, senior living records)? Report findings @ -[No old charts were reviewed] Differential Diagnosis (chest pain, altered mental status, abdominal pain women, abdominal pain men, vaginal bleeding, weakness, fever, dyspnea, syncope, headache, dizziness, GI bleed, back pain, seizure, CVA, palpatations, mental health, musculoskeletal)? @ -[Differential Headache: Migraine, tension, cluster, central venous thrombosis, intercranial hemorrhage, mastoiditis, sinusitis, head injury, this is not meant to be an all-inclusive list. EKG interpreted by me (3pts min.). @ -[As above] X-rays interpreted by me (1pt min.). @ -[None done] CT interpreted by me (1pt min.). @ -[I interpreted as above U/S interpreted by me (1pt. min.). @ -[None done] What testing was considered but not performed or refused? (CT, X-rays, U/S, labs)? Why? @ -[None] What meds were considered but not given or refused? Why? @ -[None] Did you discuss the management of the patient with other professionals (professionals i.e. , PA, RAFTSMAN, lab, RT, psych nurse, social and human services assistant, med admin, teacher, logistics supply officer, social work case manager)? Give summary @ -[No] Was smoking cessation discussed for >3mins.? @ -[No] Was critical care preformed (if so, how long)? @ -[No] Were there social determinants of health that impacted care today? How? (Homelessness, low income, unemployed, alcoholism, drug addiction, transportation, low edu. Level, literacy, decrease access to med. care, fdc, rehab)? @ -[No] Was there de-escalation of care discussed even if they declined (Discuss DNR or withdrawal of care, Hospice)? DNR status @ -[No] What co-morbidities impacted this encounter? (DM, HTN, Smoking, COPD, CAD, Cancer, CVA, ARF, Chemo, Hep., AIDS, mental health diagnosis, sleep apnea, morbid obesity)? @ -[None] Was patient admitted / discharged? Hospital course, mention meds given and rou te, prescriptions, significant lab abnormalities, going to OR and other pertinent info. @ -[This patient is an 83-year-old woman on anticoagulation therapy who had head injury. Computed tomography scan is therefore obtained. Undiagnosed new problem with uncertain prognosis? @ -[No] Drug Therapy requiring intensive monitoring for toxicity (Heparin, Nitro, Insulin, Cardizem)? @ -[No] Were any procedures done? @ -[No] Diagnosis/symptom? @ -[Acute minor head injury Acute, or Chronic, or Acute on Chronic? @ -[Acute Uncomplicated (without systemic symptoms) or Complicated (systemic symptoms)? @ -[Uncomplicated Side effects of treatment? @ -[No] Exacerbation, Progression, or Severe Exacerbation? @ -[No] Poses a threat to life or bodily function? How? (Chest pain, [place], [place], pneumonia, PE, COPD, DKA, ARF, appy, cholecystitis, CVA, Diverticulitis, Homicidal, Suicidal, threat to staff... and all critical care pts) @ -[No] Disposition Clinical Impression: Closed head injury Disposition: HOME SELF-CARE Condition: Good Instructions (If sedation given, give patient instructions): Head Injury (ED) Is patient prescribed a controlled substance at d/c from ED?: No Referrals: Molly Delgadillo MD [Primary Care Provider] - 1-2 days
--- NOTE | 2023-10-08 18:36 | CT ---
EXAMINATION TYPE: CT brain wo con DATE OF EXAM: 10/08/2023 COMPARISON: None INDICATION: posterior head injury DLP: 1110.4 mGycm, Automated exposure control for dose reduction was used. CONTRAST: None CT of the brain is performed utilizing 3 mm thick sections through the posterior fossa and 3 mm thick sections through the remaining calvarium. Study is performed within 24 hours of arrival to the hosp [place]. No abnormal hyperdensity is present to suggest an acute intracranial hemorrhage. No mass lesion is evident. No acute infarcts are evident. Ventricles and sulci are appropriate for the patient age. Paranasal sinuses and mastoid air cells within the [id number] are clear. IMPRESSION: 1. No acute intracranial process. Follow-up MRI can be performed as clinically indicated
[2023-10-08 20:17] VITALS: BP 138/68; PULSE 64; RESP 16
== END 2023-10-08 20:00 | disposition home or self-care (01) ==
LOC: EC 16:41
DX: S00.03XA Contusion of scalp, initial encounter (principal); I48.91 Unspecified atrial fibrillation; I11.0 Hypertensive heart disease with heart failure; I50.9 Heart failure, unspecified; F32.A Depression, unspecified; Z87.891 Personal history of nicotine dependence; Z79.899 Other long term (current) drug therapy; Z88.5 Allergy status to narcotic agent; Z86.73 Personal history of transient ischemic attack (TIA), and cerebral infarction without residual deficits; Z79.02 Long term (current) use of antithrombotics/antiplatelets; X58.XXXA Exposure to other specified factors, initial encounter
CPT/HCPCS: 70450; 99284